=== PATIENT | female | born 1970 | race Caucasian/White ===

== ENCOUNTER → 2018-06-13 17:42 | Outpatient (CLI) | payer OTHER, SELFPAY | PROVIDERS: Family Provider Family Medicine; PCP Family Medicine; Referring Provider Physician Assistant; Visit Provider Physician Assistant | DX: J02.9 Acute pharyngitis, unspecified (principal) | CPT/HCPCS: 87081 ==

== ENCOUNTER → 2018-08-17 08:50 | Outpatient (CLI) | payer OTHER, SELFPAY ==
[2018-06-13 07:33] VITALS: BMI 28.1
[2018-08-17 10:23] LABS: Absolute Lymphocyte Count 2.76 X10^3/ul (0.83-4.51); Absolute Neutrophil Count 3.8 X10^3/uL (2.0-7.7); Basophil# 0.04 X10^3/uL; Basophil% 0.5 % (0-1); Eosinophil# 0.19 X10^3/uL; Eosinophils% 2.6 % (0-5); Hematocrit 41.8 % (37-47); Hemoglobin 13.8 g/dl (12.0-15.0); Lymphocyte # 2.76 X10^3/ul (4.0); Lymphocyte % 37.3 % (19-41); Mean Corpuscular Hgb 33.3 pg (27.0-32.0); Mean Platelet Vol. 10.4 fl (6.2-12.0); Monocyte# 0.55 X10^3/uL; Monocyte% 7.4 % (0-10); Neutrophil # 3.84 X10^3/uL (2.7-7.7); Neutrophil % 51.9 % (47-70); Platelet Count 295 K/mm3 (150-450); RBC Distribution Width CV 12.4 % (11.6-14.6); RBC Distribution Width SD 44.9 fl (35.1-43.9); Red Blood Count 4.14 M/mm3 (4.2-5.4); White Blood Count 7.4 K/mm3 (4.4-11.0)
[2018-08-17 10:31] LABS: POSITIVE COUNT NO; POSITIVE DIFFERENTIAL NO; POSITIVE MORPHOLOGY NO
[2018-08-17 10:43] LABS: ALB/GLOB Ratio 1.2 RATIO (0.9-2.4); AST(SGOT) 19 U/L (15-37); Alanine Aminotransfer ALT/SGPT 41 U/L (13-56); Albumin, Serum 3.8 g/dL (3.2-5.0); Alkaline Phosphatase 65 U/L (45-117); Anion Gap 9 (5-15); BUN 18 mg/dL (7-18); BUN/Creat Ratio 26.5 RATIO (10-20); Chloride 103 mmol/L (98-107); Cholesterol 186 mg/dL (200); Creatinine, Serum 0.68 mg/dL (0.55-1.02); EST Glomerular Filtration Rate 98 mL/min (>60); Est Glom Filt Rate - Afr Amer 119 mL/min (>60); Globulin 3.2 g/dL (2.2-4.2); Glucose 102 mg/dL (74-106); High Density Lipoprotein 53 mg/dL; Potassium 3.4 mmol/L (3.5-5.1); Sodium Level 141 mmol/L (136-145); Thyroid Stim Hormone (TSH) 0.96 uIU/mL (0.358-3.74); Triglycerides 151 mg/dL; Very Low Density Lipoprotein 30 mg/dL (5-40)
== END ==
PROVIDERS: Family Provider Family Medicine; PCP Family Medicine; Visit Provider Family Medicine
DX: Z00.00 Encounter for general adult medical examination without abnormal findings (principal)
CPT/HCPCS: 36415; 80053; 80061; 84443; 85025

== ENCOUNTER → 2018-09-13 07:10 | Outpatient (CLI) | payer OTHER, SELFPAY ==
--- NOTE | 2018-09-13 07:16 | BI_ITS ---
MAMMOGRAPHY - BILATERAL SCREENING REASON FOR EXAM: Female, 48 years old. Routine annual screening examination. PERTINENT HISTORY: Aunt with breast cancer. TECHNIQUE: Digital bilateral breast augustina (3D mammographic acquisition) in the CC and MLO projections. 2-D mediolateral oblique (MLO) and craniocaudad (CC) views of both breasts were obtained. CAD: Full Field Digital Mammography with Computer Added Detection was performed. COMPARISON: Comparison is made with prior study dated June 29, 2016 and June 11, 2015. FINDINGS: Breast Composition: There are scattered areas of fibroglandular density. There are no dominant masses or suspicious calcifications. Stable small bilateral benign-appearing axillary lymph nodes. No other significant abnormalities are identified. There has been no significant change since the prior study. BI/SCREENING MAMM (CAD), BILAT IMPRESSION: Stable bilateral screening mammogram. Yearly follow-up mammogram recommended. (A) ASSESSMENT CATEGORY: BIRADS Category 2: Benign. A letter regarding these results will be sent to the patient by the facility within 30 days. Approximately 10% of breast cancers are not detected by mammography. A normal mammogram should not delay biopsy of a clinically suspicious abnormality. [id number] Electronically Signed: Guicho Oglesby MD at 8:33 EST , Service support ,
== END ==
PROVIDERS: Family Provider Family Medicine; PCP Family Medicine; Referring Provider Obstetrics & Gynecology; Visit Provider Obstetrics & Gynecology
DX: Z12.31 Encounter for screening mammogram for malignant neoplasm of breast (principal)
CPT/HCPCS: 77063; 77067

== ENCOUNTER → 2019-02-28 09:11 | Outpatient (CLI) | payer OTHER, SELFPAY ==
--- NOTE | 2019-02-28 09:12 | US_ITS ---
STUDY: ABDOMINAL ULTRASOUND - RIGHT UPPER QUADRANT REASON FOR VISIT: Female, 48 years old. Right upper quadrant pain TECHNIQUE: Ultrasound evaluation of the right upper quadrant was performed with real-time and static garza-scale imaging. TECHNICAL QUALITY: Adequate. COMPARISON: None. FINDINGS: Liver: The liver measures 16.08 cm. There is increased echogenicity consistent with fatty infiltration. The bile ducts are within normal limits. There is hepatic color flow. The direction of portal flow is hepatopetal. There is no demonstrated mass lesion. Gallbladder: Normal distended gallbladder. The gallbladder wall measures 2.0 mm. There is a negative sonographic Sales's sign. There is no pericholecystic fluid. There are no gallstones. Common Bile Duct (C.B.D.): The common bile duct measures 2.9 mm. Pancreas: Normal size of the head, body and tail of the pancreas. There is normal echogenicity of the pancreas. There is no demonstrated pancreatic mass or cyst. Right Kidney: Normal size of the right kidney. The right kidney measures 9.6 x 5.3 x 4.8 cm. Normal renal cortex. The right cortex measures 1.2 cm. There is no demonstrated renal mass or cyst. There is no right hydronephrosis. US/Gallbladder IMPRESSION: Fatty infiltration of liver, no discrete lesion Electronically Signed: Berhane Cody MD at 10:04 EDT , Service support ,
== END ==
PROVIDERS: Family Provider Family Medicine; PCP Family Medicine; Referring Provider Family Medicine; Visit Provider Family Medicine
DX: R10.11 Right upper quadrant pain (principal)
CPT/HCPCS: 76705

== ENCOUNTER → 2019-03-06 12:48 | Outpatient (CLI) | payer OTHER, SELFPAY ==
--- NOTE | 2019-03-06 12:51 | NM_ITS ---
CLINICAL: 48-year-old female with reported history of abdominal pain. RADIONUCLIDE HEPATOBILIARY SCINTIGRAPHY COMPARISON: Abdominal ultrasound report 02/28/2019 CCK hepatobiliary scintigraphy report 12/16/2013 FINDINGS: Following the intravenous administration of 4.4 mCi of 99m Tc Mebrofenin, hepatobiliary images reveal: 1. Relatively prompt and homogeneous radiopharmaceutical concentration is noted by a normal sized liver. No parenchymal defects are identified. 2. Gallbladder activity is identified at 15 minutes post radiopharmaceutical administration. 3. Small intestinal tract is observed at 15 minutes following tracer injection. 4. Washout of the radiopharmaceutical by the hepatic parenchyma appears qualitatively normal. Cholecystokinin (0.02 ug/kg) was administered intravenously over a 30-minute period. The post CCK gallbladder ejection fraction calculated at 30 minutes following Cholecystokinin administration was noted to be 85.0 % (normal greater than 35%). During 30 minutes of post CCK imaging, there is no scintigraphic evidence of reflux of the radiotracer into the common hepatic duct or refilling of the gallbladder. NM/Hepatobilliary Img w/Pharm Int IMPRESSION: 1. NORMAL 99m Tc Mebrofenin hepatobiliary imaging examination with Cholecystokinin. A. A gallbladder ejection fraction calculated to be greater than 35% following the administration of Cholecystokinin makes the probability of functional hepatobiliary disease (gallbladder and/or sphincter of Oddi dyskinesia) and/or organic hepatobiliary disease (chronic acalculous cholecystitis and/or cystic duct syndrome) to be low. (Tra Reagan et al, Journal of Nuclear Medicine 32:1695, 1991). Electronically Signed: Chavez Oliveira DO at 11:04 EDT Tel , Service support ,
== END ==
PROVIDERS: Family Provider Family Medicine; PCP Family Medicine; Referring Provider Family Medicine; Visit Provider Family Medicine
DX: R10.11 Right upper quadrant pain (principal)
CPT/HCPCS: 78227; A9537; J2805

== ENCOUNTER → 2019-03-19 16:06 | Outpatient (CLI) | payer OTHER, SELFPAY ==
[2019-03-19 17:13] LABS: Absolute Lymphocyte Count 2.91 X10^3/uL (0.83-4.51); Absolute Neutrophil Count 4.7 X10^3/uL (2.0-7.7); Basophil# 0.04 X10^3/uL; Basophil% 0.5 % (0-1); Eosinophil# 0.22 X10^3/uL; Eosinophils% 2.6 % (0-5); Hematocrit 43.9 % (37-47); Hemoglobin 14.8 g/dL (12.0-15.0); Lymphocyte # 2.91 X10^3/ul (4.0); Lymphocyte % 34.4 % (19-41); Mean Corp Hgb Conc 33.7 g/dL (32-36); Mean Corpuscular Hgb 33.9 pg (27.0-32.0); Mean Corpuscular Volume 100.7 fL (81-99); Mean Platelet Vol. 11.2 fl (6.2-12.0); Monocyte% 7.1 % (0-10); NRBC Flagged by Analyzer 0 % (0-5); Neutrophil # 4.65 X10^3/uL (2.7-7.7); Neutrophil % 54.9 % (47-70); Platelet Count 263 K/mm3 (150-450); RBC Distribution Width CV 12.5 % (11.6-14.6); RBC Distribution Width SD 46.7 fl (35.1-43.9); Red Blood Count 4.36 M/mm3 (4.2-5.4); White Blood Count 8.5 K/mm3 (4.4-11.0)
[2019-03-19 17:34] LABS: Thyroid Stim Hormone (TSH) 1.39 uIU/mL (0.358-3.74)
== END ==
PROVIDERS: PCP Family Medicine; Visit Provider Obstetrics & Gynecology
DX: N95.2 Postmenopausal atrophic vaginitis (principal)
CPT/HCPCS: 36415; 84443; 85025

== ENCOUNTER → 2019-12-04 15:28 | Outpatient (CLI) | payer OTHER, SELFPAY ==
[2019-08-15 07:43] VITALS: BMI 28.1
--- NOTE | 2019-12-04 15:31 | RAD_ITS ---
STUDY: X-RAY - LEFT SHOULDER REASON FOR EXAM: Female, 49 years old. Pain TECHNIQUE: 4 view(s) of the shoulder. COMPARISON: None. FINDINGS: Normal glenohumeral articulation. Normal acromioclavicular joint. Normal acromion. Normal humeral head and visualized proximal humerus. The soft tissue structures are unremarkable. There is no demonstrated fracture. Normal visualized pulmonary apex. RAD/Shoulder min 2 Views IMPRESSION: Normal x-ray examination of the shoulder. Electronically Signed: Thierry Enciso MD at 16:07 EDT , Service support ,
--- NOTE | 2019-12-04 15:32 | RAD_ITS ---
STUDY: X-RAY - LEFT FOOT CLINICAL: Female, 49 years old. Pain in the toes, no injury TECHNIQUE: 3 view(s) of the foot. COMPARISON: None. FINDINGS: Normal talus, calcaneus, and tarsal bones. Normal visualized subtalar, talonavicular, calcaneocuboid, tarsal and tarsometatarsal articulations. Normal metatarsi. Normal metatarsophalangeal joint of the great toe. Normal tibial and fibular sesamoid bones. Normal interphalangeal joint of the great toe. Normal phalanges of the great toe. Normal second through fifth metatarsophalangeal joints. Normal interphalangeal joints and phalanges of the lesser toes. The soft tissue structures are unremarkable. RAD/Foot min 3 Views IMPRESSION: Normal x-ray examination of the foot. Electronically Signed: Guicho Oglesby, at 16:17 EDT , Service support ,
--- NOTE | 2019-12-04 15:32 | RAD_ITS ---
STUDY: X-RAY - LEFT HAND REASON FOR EXAM: Female, 49 years old. Pain in the fingers, no injury TECHNIQUE: 3 view(s) of the hand. COMPARISON: None. FINDINGS: Normal radiocarpal articulation. Normal distal radioulnar joint. Normal visualized carpal bones. Normal carpal articulations Normal carpometacarpal articulation of the thumb. Normal second through fifth carpometacarpal joints. Normal metacarpi. Normal metacarpophalangeal joint of the thumb. Normal interphalangeal joint of the thumb. Normal proximal and distal phalanges of the thumb. Normal metacarpophalangeal joints of the second through fifth fingers. Normal proximal and distal interphalangeal joints of the second through fifth fingers. Normal phalanges of the second through fifth fingers. The soft tissue structures are unremarkable. RAD/Hand Min 3 Views IMPRESSION: Normal x-ray examination of the hand. Electronically Signed: Guicho Oglesby, at 16:17 EDT , Service support ,
== END ==
PROVIDERS: PCP Family Medicine; Referring Provider Internal Medicine; Visit Provider Internal Medicine
DX: M25.512 Pain in left shoulder (principal); M25.579 Pain in unspecified ankle and joints of unspecified foot; M25.549 Pain in joints of unspecified hand
CPT/HCPCS: 73030; 73130; 73630

== ENCOUNTER → 2020-08-28 07:01 | Outpatient (CLI) | payer OTHER, SELFPAY ==
[2019-08-15 07:43] VITALS: BMI 28.1
--- NOTE | 2020-08-28 07:03 | BI_ITS ---
MAMMOGRAPHY - BILATERAL SCREENING REASON FOR EXAM: Female, 50 years old. Routine annual screening examination. PERTINENT HISTORY: Aunt with breast cancer. TECHNIQUE: Digital bilateral breast kelli (3D mammographic acquisition) in the CC and MLO projections. 2-D mediolateral oblique (MLO) and craniocaudad (CC) views of both breasts were obtained. CAD: Full Field Digital Mammography with Computer Added Detection was performed. COMPARISON: Comparison is made with prior study date 09/13/2018 and 06/29/2016. FINDINGS: Breast Composition: There are scattered areas of fibroglandular density. There are no dominant masses or suspicious calcifications. No other significant abnormalities are identified. There has been no significant change since the prior study. BI/SCRN MAMM (CAD)W/KELLI BILAT IMPRESSION: Stable bilateral screening mammogram. Yearly follow-up mammogram recommended. (A) ASSESSMENT CATEGORY: BIRADS Category 1: Negative. A letter regarding these results will be sent to the patient by the facility within 30 days. Approximately 10% of breast cancers are not detected by mammography. A normal mammogram should not delay biopsy of a clinically suspicious abnormality. [id number] Electronically Signed: Guicho Oglesby MD at 8:57 EST , Service support ,
== END ==
PROVIDERS: PCP Family Medicine; Referring Provider Obstetrics & Gynecology; Visit Provider Obstetrics & Gynecology
DX: Z12.31 Encounter for screening mammogram for malignant neoplasm of breast (principal); Z80.3 Family history of malignant neoplasm of breast
CPT/HCPCS: 77063; 77067

== ENCOUNTER → 2021-03-24 10:20 | Outpatient (CLI) | payer OTHER, SELFPAY ==
[2021-03-28 16:26] LABS: HPV APTIMA, High Risk Negative (Negative)
== END ==
PROVIDERS: PCP Internal Medicine; Referring Provider Nurse Practitioner Women's Health; Visit Provider Nurse Practitioner Women's Health
DX: Z12.4 Encounter for screening for malignant neoplasm of cervix (principal)
CPT/HCPCS: 87624; 88175; G0145

== ENCOUNTER → 2022-01-26 | Outpatient (CLI) | payer SELFPAY ==
--- NOTE | 2022-01-26 | EMB_PTH ---
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 Neeta Smart DO Tissues: Endometrium, NOS Procedures: Surgery Specimen Level IV HEADER OPERATION: Endometrial biopsy PRE-OP DIAGNOSIS: Abnormal uterine bleeding TISSUE SUBMITTED: Endometrial biopsy MICROSCOPIC DIAGNOSIS Endometrium, biopsy: Disordered proliferative endometrium to simple hyperplasia without atypia. AM:anna marie 01/27/2022 MICROSCOPIC DESCRIPTION Slides are reviewed. GROSS DESCRIPTION Received is one container labeled with the patient's name and not further designated. The specimen consists of multiple fragments of hemorrhagic soft tissue that in aggregate measure 5 x 2.5 x 0.2 cm. The specimen is totally submitted in two cassettes. / SJ:anna marie 01/26/2022 TC:5 CPT: 91120
== END | disposition home or self-care (01) ==
PROVIDERS: PCP Internal Medicine; Visit Provider Nurse Practitioner Women's Health
DX: N93.9 Abnormal uterine and vaginal bleeding, unspecified (principal); N85.01 Benign endometrial hyperplasia
CPT/HCPCS: 88305

== ENCOUNTER → 2022-02-08 | Outpatient (CLI) | payer OTHER, SELFPAY ==
--- NOTE | 2022-02-08 15:13 | US_ITS ---
STUDY: ULTRASOUND OF THE FEMALE PELVIS - COMPLETE REASON FOR EXAM: Female, 51 years old. menorrhagia TECHNIQUE: Endovaginal. Transvaginal US was obtained to better visualized the ovaries. COMPARISON: CT 03/22/2013 FINDINGS: The uterus is retroverted and is in a midline position. The uterus measures 16.5 x 12.1 cm. There is appearance of a mass of the cervix which is hypervascular. The endometrium measures 30 mm in thickness, and is hyperechoic. There is no demonstrated endometrial mass. Fibroids. These measure 34 mm. I.U.D. - The patient does not have an I.U.D. The right ovary is visualized. The right ovary measures 2.5 x 1.8 cm. There is no right ovarian cyst or ovarian mass. There is no visualized right adnexal mass or complex lesion. There is normal arterial and normal venous vascularity. The left ovary is visualized. The left ovary measures 3.2 x 2.1 cm. There is no left ovarian cyst or ovarian mass. There is no visualized left adnexal mass or complex lesion. There is normal arterial and normal venous vascularity. There is no fluid in the cul-de-sac. Urinary bladder volume is 364 cc. US/Pelvic (Non ) IMPRESSION: There is endometrial thickening. This is abnormal for the patient''s age if she is postmenopausal. Direct visualization is recommended to exclude an underlying mass. Diffusely enlarged uterus consistent for fibroid uterus. There is a mass at the level of the cervix which may be a fibroid. However cervical neoplasm cannot be excluded. Recommend Direct visualization Electronically Signed: Turner Villanueva MD at 19:39 EDT ,
--- NOTE | 2022-02-08 15:13 | US_ITS ---
STUDY: ULTRASOUND OF THE FEMALE PELVIS - COMPLETE REASON FOR EXAM: Female, 51 years old. menorrhagia TECHNIQUE: Endovaginal. Transvaginal US was obtained to better visualized the ovaries. COMPARISON: CT 03/22/2013 FINDINGS: The uterus is retroverted and is in a midline position. The uterus measures 16.5 x 12.1 cm. There is appearance of a mass of the cervix which is hypervascular. The endometrium measures 30 mm in thickness, and is hyperechoic. There is no demonstrated endometrial mass. Fibroids. These measure 34 mm. I.U.D. - The patient does not have an I.U.D. The right ovary is visualized. The right ovary measures 2.5 x 1.8 cm. There is no right ovarian cyst or ovarian mass. There is no visualized right adnexal mass or complex lesion. There is normal arterial and normal venous vascularity. The left ovary is visualized. The left ovary measures 3.2 x 2.1 cm. There is no left ovarian cyst or ovarian mass. There is no visualized left adnexal mass or complex lesion. There is normal arterial and normal venous vascularity. There is no fluid in the cul-de-sac. Urinary bladder volume is 364 cc. US/Transvaginal Non- IMPRESSION: There is endometrial thickening. This is abnormal for the patient''s age if she is postmenopausal. Direct visualization is recommended to exclude an underlying mass. Diffusely enlarged uterus consistent for fibroid uterus. There is a mass at the level of the cervix which may be a fibroid. However cervical neoplasm cannot be excluded. Recommend Direct visualization Electronically Signed: Turner Villanueva MD at 19:39 EDT ,
== END | disposition home or self-care (01) ==
LOC: US 15:12
PROVIDERS: PCP Internal Medicine; Referring Provider Nurse Practitioner Women's Health; Visit Provider Nurse Practitioner Women's Health
DX: N92.1 Excessive and frequent menstruation with irregular cycle (principal); D25.9 Leiomyoma of uterus, unspecified
CPT/HCPCS: 76830; 76856

== ENCOUNTER → 2022-02-15 | Outpatient (CLI) | payer OTHER, SELFPAY ==
[2022-03-02 20:26] LABS: HPV Reflexed? NOT INDICATED
== END | disposition home or self-care (01) ==
LOC: LABSPEC 15:39
PROVIDERS: PCP Internal Medicine; Visit Provider Nurse Practitioner Women's Health
DX: R87.615 Unsatisfactory cytologic smear of cervix (principal)
CPT/HCPCS: 88175; G0145

== ENCOUNTER → 2022-02-21 | Outpatient (CLI) | payer OTHER, SELFPAY ==
--- NOTE | 2022-02-21 16:45 | MRI_ITS ---
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 This report was created using [employer] report generation technology. CONTRAST: IV 14 CC DOTAREM COMPARISON: CT 03/22/2013 and US Feb 08 2022 3:44pm FINDINGS: APPENDIX: No evidence of acute appendicitis. INTRAPERITONEAL SPACE: Unremarkable. No ascites or other fluid collection. BLADDER: Unremarkable. REPRODUCTIVE: Enlarged uterus with a fibroid. The mass noted on US correlates with a posterior uterine fibroid. There is endometrial thickening and abnormal MRI signal in the endometrium. Multiple cystic areas in the endometrial junctional zone can represent microcysts. There is diffuse distribution. This can represent adenomyosis. There is a low T2 signal mass along the posterior lower uterine segment. This is 61 x 56 mm. 27mm low T2 signal fibroid in the anterior uterine body. BONES/JOINTS: Unremarkable. No suspicious lytic or blastic abnormality. SOFT TISSUES: Unremarkable. No pelvic wall hernia. LYMPH NODES: Unremarkable. No enlarged lymph nodes. MRI/Pelvis W/WO Contrast IMPRESSION: 1. Enlarged uterus with fibroids. The mass noted on US correlates with a posterior uterine fibroid. 2. There is endometrial thickening. Multiple cystic areas in the endometrial junctional zone can represent microcysts. There is diffuse distribution. This can represent adenomyosis. Electronically Signed: Turner Villanueva MD at 20:41 EDT ,
== END | disposition home or self-care (01) ==
PROVIDERS: PCP Internal Medicine; Referring Provider Obstetrics & Gynecology; Visit Provider Obstetrics & Gynecology
DX: N88.8 Other specified noninflammatory disorders of cervix uteri (principal)
CPT/HCPCS: 72197; A9575

== ENCOUNTER 2022-02-24 07:07 | Observation (INO) | payer OTHER, SELFPAY ==
[2022-02-24 07:08] VITALS: BP 137/92; PULSE 96; RESP 20; TEMP 36.8; O2SAT 99; BMI 27.4
[2022-02-24] MEDS: Ketorolac 15 MG/ML Vial IV (07:32)
[2022-02-24] MEDS: Morphine 4 MG/ML Syringe IV ×3 (07:33→12:21)
[2022-02-24] MEDS: Ondansetron 4 MG/2 ML Vial IV (07:33)
[2022-02-24 07:36] LABS: Absolute Lymphocyte Count 1.21 X10^3/uL (0.83-4.51); Absolute Neutrophil Count 15.7 X10^3/uL (2.0-7.7); Basophil# 0.05 X10^3/uL; Basophil% 0.3 % (0-1); Eosinophil# 0.03 X10^3/uL; Eosinophils% 0.2 % (0-5); Hematocrit 43.4 % (37-47); Hemoglobin 14.7 g/dL (12.0-15.0); Lymphocyte # 1.21 X10^3/ul (0.83-4.51); Lymphocyte % 6.7 % (19-41); Mean Corp Hgb Conc 33.9 g/dL (32-36); Mean Corpuscular Hgb 34.5 pg (27.0-32.0); Mean Corpuscular Volume 101.9 fL (81-99); Monocyte% 6.1 % (0-10); NRBC Flagged by Analyzer 0 % (0-5); Neutrophil # 15.68 X10^3/uL (2.7-7.7); Neutrophil % 86.3 % (47-70); Platelet Count 161 K/mm3 (150-450); RBC Distribution Width CV 13.2 % (11.6-14.6); RBC Distribution Width SD 49.9 fl (35.1-43.9); Red Blood Count 4.26 M/mm3 (4.2-5.4); White Blood Count 18.1 K/mm3 (4.4-11.0)
--- NOTE | 2022-02-24 07:36 | ED.VIS.FEGU ---
HPI HPI - Female History of Present Illness Chief Complaint: Vag Bleeding Detail of Chief Complaint: Vaginal bleeding for approximately 4 months Informant: patient, spouse/S.O. and other (Review of prior records and images) Pain Pain: Positive for Pelvic Pain Onset: Days Context: Gradual Onset (Pain has gotten significantly worse since Monday.) Timing: Continuous and Waxes and wanes Quality: Positive for Cramping (Compares to significant labor pain) Location: Suprapubic and Back Current Severity: Severe Maximum Severity: Severe Worsened by: - (Nothing specific) Relieved by: Remaining Still (Nothing) Bleeding Issue: Positive for Vaginal bleeding and Passing clots; Negative for Passing tissue Onset: Days and Weeks Context: Sudden Onset Timing: Continuous and Waxes and wanes Current Severity: Heavy Current pads/hr: 13 Maximum Severity: Heavy Associated Symptoms Associated Symptoms: Positive for Irregular Period; Negative for Dysuria, Frequency, Urgency, Hematuria or Missed Period Test: Negative Sexually: Positive for Active Narrative Narrative: Patient is a 53-year-old woman who is under the care of Dr. Bates who presents because of severe pain. She had an appointment to see Dr. Brenda Bates this morning however states the pain was unbearable. She states she is gone through 13 pads with passage of clots. She denies orthostatic symptoms. She denies urologic symptoms. She has not on anticoagulant. She informed that she had ultrasound which revealed a mass. She was informed that the MRI revealed that the mass is a fibroid. She denies bruising easily. She denies any other symptoms. Prior similar symptoms: Yes Recent Illness/Hospitalization: Yes PFSH PFSH Home Medications multivitamin 1 tab PO DAILY 03/24/21 [History Last Taken Unknown] psyllium husk 0.4 gram capsule (Daily Fiber) 0.4 g PO DAILY 03/24/21 [History Last Taken Unknown] megestrol 40 mg tablet 40 mg PO BID #60 tabs 01/27/22 [Rx Last Taken Unknown] Allergy/AdvReac Type Severity Reaction Status Date / Time No Known Allergies Allergy Verified 02/24/22 07:10 Surgical History Hx of tubal ligation Social History household members: spouse current occupational status: employed current occupation: [employer] history of recent travel: No Smoking Status: Never smoker alcohol intake: current alcohol intake frequency: a few times a week Alcohol type: wine substance use type: does not use diet: other what type of physical activity do you participate in: yoga frequency: 1-2 times per week seatbelt use: always do you feel safe at home: Yes additional social history: - [facility] ROS ED Constitutional Constitutional ED: Denies chills, fever(s), subjective or sweats Eyes Eyes: Denies blurry vision, change in vision or diplopia ENT ENT ED: Denies ear pain, rhinorrhea or sore throat Cardiovascular Cardiovascular: Denies chest pain or palpitations Respiratory/Chest Respiratory/Chest: Denies cough, dyspnea or dyspnea on exertion Gastrointestinal Gastrointestinal: Reports abdominal pain; Denies constipation, diarrhea, melena, nausea or vomiting Genitourinary Genitourinary ED: Denies dysuria, hematuria or urinary frequency Musculoskeletal Musculoskeletal: Reports other Details: Central low back pain ; Denies arthralgias, myalgias or neck pain Integumentary Denies abscess, Abrasions or rash Neurologic Neurologic: Denies headache(s), paresthesias or weakness Hematologic/Lymphatic Hematologic/Lymphatic: Denies easy bleeding, easy bruising or lymphadenopathy EXAM Physical Exam Const Vital Signs: 02/24/22 07:08 Temperature 98.2 F Temperature Source Temporal Pulse Rate 96 Respiratory Rate 20 H Blood Pressure 137/92 H Blood Pressure Mean 107 Pulse Ox 99 Oxygen Delivery Method Room Air Positive well nourished and well developed Constitutional Narrative: Patient is in obvious discomfort dressed. Patient is grimacing. Hips are flexed and patient slightly rotated on her right side. General Appearance ED: well developed; Negative for NAD or pallor HEENT Reports moist mucous membranes HEENT Narrative: Ears normal. Nares patent. Mucosa moist. Eyes PERRL and EOMs intact bilaterally General Eye ED: Yes pale conjunctiva and scleral icterus Neck no lymphadenopathy, supple and no JVD Resp normal respiratory effort and clear to auscultation bilaterally Cardio regular rate, regular rhythm, S1 normal heart sound, no murmurs and no JVD GI soft to palpation and non-distended; Negative for normal to inspection, nondistended, normoactive bowel sounds or non-tender Auscultation: hypoactive bowel sounds Palpation: tender suprapubic and guarding other (Suprapubic/pelvic region) Back/Spine no CVA tenderness Thoracic Spine / Upper Back: thoracic spinal tenderness Lumbar Spine / Lower Back: lumbar spinal tenderness Extremity normal to inspection and full ROM Neuro oriented x3, CN's II-XII intact bilaterally and no sensory deficits noted Sensorium / Orientation: alert Motor Exam: strength 5/5 throughout Psych Psych Narrative: Patient appears anxious. Affect is flat. Skin no rashes or lesions noted and no wounds General Skin Exam: Negative for jaundice or pallor MDM MDM MDM Narrative Medical decision making narrative: Patient with abnormal vaginal bleeding suspect secondary to fibroids. CBC was obtained to assess H&H and platelet count. Patient was medicated with IV morphine and Toradol and Zofran for pain and nausea. Will contact Dr. Brenda Bates regarding patient. Patient was reassessed at 0744. Pain has improved. Patient required more pain medicine. She was given additional dose of morphine. Case was discussed with Dr. Anila Kirby. Plan is observation for pain management. She will consult Dr. Brenda Bates after reviewing ultrasound and MRI to determine if patient requires surgery. Lab Data Attestation: I reviewed the patient's lab results. Lab results narrative: White count is elevated with evidence of demargination consistent with stress/pain. H&H is unchanged. MCV is elevated and is baseline for patient Labs: Laboratory Results - last 24 hr 02/24/22 07:24 WBC 18.1 H RBC 4.26 Hgb 14.7 Hct 43.4 MCV 101.9 H MCH 34.5 H MCHC 33.9 RDW Std Deviation 49.9 H RDW Coeff of Cecilia 13.2 Plt Count 161 MPV 10.0 Immature Gran % (Auto) 0.400 Neut % (Auto) 86.3 H Lymph % (Auto) 6.[address] % (Auto) 6.1 Eos % (Auto) 0.2 Baso % (Auto) 0.3 Absolute Neuts (auto) 15.7 H Absolute Lymphs (auto) 1.21 Nucleated RBC % 0 Discharge Plan Triage Chief Complaint: Vag Bleeding ED Provider: Juan AlbertoFortino Dx/Rx/DC Orders Clinical Impression: Pelvic pain, Intramural uterine fibroid, Leukocytosis Prescriptions: No Action multivitamin Tablet 1 tab PO DAILY psyllium husk [Daily Fiber] 0.4 gram capsule 0.4 g PO DAILY megestrol 40 mg tablet 40 mg PO BID Qty: 60 6RF Primary Care Provider: Neeta Smart Referrals: Neeta Smart DO [Primary Care Provider] - Disposition Disposition: Acute Care Hospital [facility]
[2022-02-24] MEDS: 0.9% Normal Saline 1,000 ML 150 ML IV (07:50)
[2022-02-24 10:20] VITALS: BP 141/82; PULSE 67; RESP 11; TEMP 36.6; O2SAT 97
[2022-02-24 10:38] VITALS: BMI 27.8
[2022-02-24 10:57] VITALS: BMI 27.8
[2022-02-24 12:00] VITALS: BP 151/90; PULSE 71; RESP 14; TEMP 37.2; O2SAT 100
[2022-02-24] MEDS: 0.9% Normal Saline 1,000 ML 75 ML IV (12:21)
[2022-02-24] MEDS: 0.9% Saline Lock 10 ML Syringe IV (12:21)
--- NOTE | 2022-02-24 13:13 | PCM.HP.OB ---
HPI - General General Date of Admission: 02/24/22 Date of Service: 02/24/22 Chief Complaint: pelvic pain, fibroid uterus HPI Narrative NOVEMBER GALAVIZ, is a 51y/o (vaginal deliveries) who presents to [facility] ER earlier this am with pain that started on Monday this week. She is taking progesterone to stop her menses but experienced breakthrough bleeding on Monday, followed by pain on Monday. While in the ER, she told the physician that she had gone through 13 pads over the last 24 hours. Her hg did not reflect severe anemia and she denies dizziness, shortness of breath, or chest pain. She had a WBC of 18 however. She denies fevers or chills, cold symptoms or covid symptoms. MRI from earlier this week showed a 16 cm uterus with a 6 cm posterior lower segment fibroid. She is currently is moderate pain (level 6/10). [facility] Home Medications multivitamin 1 tab PO DAILY SUPPLEMENT 03/24/21 [History Last Taken 02/23/22 08:00] megestrol 40 mg tablet 40 mg PO BID #60 tabs 01/27/22 [Rx Last Taken Unknown] oxycodone-acetaminophen 5 mg-325 mg tablet (Percocet) 1 - 2 tab PO Q4H PRN Pain 02/24/22 [History Last Taken Unknown] Allergy/AdvReac Type Severity Reaction Status Date / Time No Known Allergies Allergy Verified 02/24/22 07:10 Surgical History Hx of tubal ligation Social History household members: spouse current occupational status: employed current occupation: [employer] history of recent travel: No Smoking Status: Never smoker alcohol intake: current alcohol intake frequency: a few times a week Alcohol type: wine substance use type: does not use diet: other what type of physical activity do you participate in: yoga frequency: 1-2 times per week seatbelt use: always do you feel safe at home: Yes additional social history: - Vasquez History 3 Elective abortions Hx Para 3 Spontaneous abortions Hx # Term Pregnancies Ectopic pregnancies Hx # Pregnancies Multiple births # of living children 3 Past Pregnancies Del. Date Name GA/Weeks Outcome Route Bth Weight Gen Labor Lgth Anesthesia Del [facility] Provider FOB Unknown Misael 1989 Unknown Mala 1989 Unknown Reyna 1994 ROS Constitutional Constitutional: Denies change in weight, fatigue, fever(s), headache(s), poor appetite or weakness Eyes Eyes: Denies blurry vision, change in vision, seeing flashes or spots in vision ENT HEENT: Denies dizziness, headache(s), loss taste/smell or sore throat Cardiovascular Cardiovascular: Denies chest pain, dizziness, dyspnea, irregular heart rhythm, leg edema, palpitations, rapid heart rate or vomiting Respiratory/Chest Respiratory/Chest: Denies chest tightness, cough, dyspnea or breast pain Gastrointestinal Gastrointestinal: Denies abdominal pain, anorexia, constipation, cramping, diarrhea, hemorrhoids, vomiting or weight changes Genitourinary Genitourinary: Denies dysuria, flank pain, genital lesions, genital pain, urinary frequency or urinary urgency Musculoskeletal Musculoskeletal: Denies back pain, difficulty walking, joint pain, limited range of motion, muscle cramps or numbness Integumentary Integumentary: Denies lesions or unusual bruising Neurologic Neurologic: Denies abnormal movements, abnormal speech, dizziness, numbness, seizure-like activity or syncope Psychiatric Psychiatric: Denies anxiety, behavioral changes, change in appetite, change in libido, cognitive impairment, confusion, depression, difficulty concentrating, hallucinations or suicidal thoughts Endocrine Endocrinology: Denies excessive sweating, polydipsia or polyuria Hematologic/Lymphatic Hematologic/Lymphatic: Denies easy bleeding, easy bruising or lymphadenopathy Allergic/Immunologic Allergic/Immunologic: Denies itchy eyes, lip swelling, seasonal rhinorrhea, rhinitis, throat swelling, tongue swelling, eczemia, wheezing or asthma Vital Signs Vital Signs Vital Signs: 02/24/22 07:08 02/24/22 10:20 Temperature 98.2 F 98 F Temperature Source Temporal Temporal Pulse Rate 96 67 Respiratory Rate 20 H 11 L Blood Pressure 137/92 H 141/82 H Blood Pressure Mean 107 101 Pulse Ox 99 97 Oxygen Delivery Method Room Air Room Air Weight Weight: 152 lb Body Mass Index (BMI) 27.8 Physical Exam Const alert, oriented x3, no apparent distress and healthy appearing General Appearance: cooperative; Negative for anxious HEENT normocephalic Face and Sinus: normal facial exam Eyes EOMs intact bilaterally and no scleral icterus General Eye: normal appearance of both eyes Neck full ROM and supple Lymph Lymphatic: no lymphadenopathy noted Chest Chest: abnormal inspection of the chest Resp normal respiratory effort Effort and Inspection: able to speak in complete sentences Cardio regular rate GI soft to palpation and non-tender Palpation: soft; Negative for tender Back/Spine no CVA tenderness Extremity normal to inspection, full ROM and no clubbing, cyanosis or edema General Extremity: Negative for calf tenderness or edema Skin Lesions: no lesions Rashes: no rashes Psych mental status grossly normal Labs Labs Labs: Hct 43.4 % (37-47) Hgb 14.7 g/dL (12.0-15.0) Assessment & Plan (1) Pelvic pain: PLAN: After discussing the patient's diagnosis and treatment plan options, patient wishes to proceed with surgical management. The plan is to proceed with total robotic hysterectomy, possible laparotomy, bilateral salpingo-oophorectomy, and cystoscopy I have discussed with the patient the risks, benefits, and alternatives of the procedure which include but are not limited to risks of anesthesia, bleeding, infection, possible damage to bowel, bladder, or surrounding vasculature which could lead to additional surgery to evaluate any complications. Patient agrees to procedure and wishes to proceed. ACOG/uptodate references given for additional information regarding procedure. if surgery goes well and her pain is well controlled, I will discharge her to home after surgery. (2) Intramural uterine fibroid: (3) Leukocytosis: (4) Menorrhagia with irregular cycle: (5) Climacteric: Charges/Coding Multi Select Codes Visit Charges Visit Charges: 15677 Init Hosp L3
[2022-02-24 15:20] VITALS: BP 107/67; PULSE 86; RESP 14; TEMP 37.2; O2SAT 100
--- NOTE | 2022-02-24 15:49 | EKG12_ITS ---
Test Reason : PRE OP Blood Pressure : / mmHG Vent. Rate : 081 BPM Atrial Rate : 081 BPM P-R Int : 154 ms QRS Dur : 074 ms QT Int : 360 ms P-R-T Axes : 064 026 052 degrees QTc Int : 418 ms Normal sinus rhythm Low voltage QRS Borderline ECG No previous ECGs available Confirmed by JEANNETTE MACKAY, ALICE ([id number]), online editor WINIFRED CARDOZO ([id number]) on 03/02/2022 1:07:47 PM Referred By: JESE LOFTON Confirmed By:ALICE MACHADO MD
[2022-02-24 21:20] VITALS: BP 107/71; PULSE 89; RESP 14; TEMP 36.9; O2SAT 99
[2022-02-25] VITALS (15 sets, daily range): BP systolic 93–125; BP diastolic 63–86; PULSE 48–87; RESP 12–18; TEMP 36.4–37.3; O2SAT 92–100; BMI 27.8
[2022-02-25] MEDS: 0.9% Normal Saline 1,000 ML 75 ML IV ×2 (01:28→15:21)
[2022-02-25] MEDS: Gabapentin 600 MG Tablet PO (07:34)
[2022-02-25] MEDS: Acetaminophen 500 MG Tablet 1000 MG PO ×3 (08:59→21:24)
[2022-02-25] MEDS: Celecoxib 200 MG Capsule 400 MG PO (08:59)
[2022-02-25] MEDS: Lactated Ringers 1,000 ML 40 ML IV ×2 (09:11→11:00)
[2022-02-25] MEDS: Magnesium 2 GM IV (09:25)
--- NOTE | 2022-02-25 09:30 | HYST_PTH ---
PATIENT: ANASTACIANOVEMBER WALTER LOC: MS3 U#:[id number] AGE/SX: 51/F [place] [facility] [place]: Dr. Anila Rodriguez DO : 1970 BED: 1 DIS: 02/26/2022 SPEC #: [id number] RECD: 02/25/22 13:49 STATUS: GRAEME HOPPER #: [id number] CURT: 02/25/22 09:[address]: Anila Rodriguez DEPT: SURGICAL PATHOLOGY RECD BY: Yoko Moore ENTERED: 02/28/22 11:44 SP TYPE: HYSTERECT OTHR DR: Dr. Neeta Smart DO Tissues: Uterus, NOS Procedures: Surgery Specimen Level V HEADER OPERATION: Total robotic hysterectomy, BSO, cysto PRE-OP DIAGNOSIS: Pelvic pain, intramural uterine fibroid, leukocytosis, menorrhagia TISSUE SUBMITTED: Uterus, cervix, fibroid, bilateral fallopian tubes and ovaries MICROSCOPIC DIAGNOSIS Uterus, cervix, fibroid, bilateral fallopian tubes and ovaries, total hysterectomy and bilateral salpingo-oophorectomy: Cervix ? chronic inflammation. Endometrium ? secretory endometrium. Myometrium ? leiomyomas (largest measuring 6 cm in greatest dimension). - Diffuse adenomyosis. Bilateral fallopian tubes - no pathologic diagnosis. Right ovary - no pathologic diagnosis. Left ovary ? simple benign epithelial cyst (1.0 cm in greatest dimension). Paraovarian tissue adjacent to the left ovary ? adipose tissue with focal fat necrosis (1 cm in greatest dimension). SJ:anna marie 03/01/2022 COMMENT Please make reference to previous specimen ([id number]), endometrium, biopsy with diagnosis of ?disordered proliferative endometrium to simple hyperplasia without atypia.? MICROSCOPIC DESCRIPTION Slides are reviewed. GROSS DESCRIPTION Received in fixative is one container labeled with the patient's name and designated uterus, cervix, fibroid, bilateral fallopian tubes and ovaries. The specimen consists of a hysterectomy specimen consisting of uterus and cervix in multiple pieces and attached bilateral fallopian tubes and ovaries in the largest piece of uterus. The uterus with cervix in multiple pieces weighs in aggregate 678 gm. The detached cervix measures 4 x 4.5 x 2.5 cm. The ectocervical mucosa is unremarkable. The external os is oval in contour. The endocervical canal measures 3.5 cm in length. The largest piece of uterus measures 15 x 10 x 7 cm. The serosal surface is hobson, glistening. The endometrial cavity in the largest piece of the uterus measures 5 cm in length and up to 3 cm in width. The endometrium is denuded in most of the area and measures up to 0.2 cm in thickness. Sections of the largest piece of uterus reveal thickened uterine wall measuring up to 5 cm in thickness. Sections also reveal a nodular mass measuring 1.5 cm in diameter. Detached pieces of uterus measures in aggregate 10 x 6 x 5 cm. Two of the pieces are consistent with nodular masses measuring 2 and 6 cm in greatest dimension. Sections of these masses reveal hobson whorled cut surfaces without areas of hemorrhage, necrosis or cystic degeneration. The right fallopian tube measures 4 cm in length and 0.6 cm in diameter. The fimbrial end is identified. No tubo-ovarian adhesions are noted. Sections reveal unremarkable cut surfaces. The right ovary measures 2 x 1 x 1 cm. Sections reveal unremarkable cut surfaces. The left fallopian tube measures 7 cm in length and 0.5 cm in diameter. A Filshie clip is noted in the proximal portion of the fallopian tube and appears to be intact. The fimbrial end is identified. Sections reveal unremarkable cut surfaces. No tubo-ovarian adhesions are noted. The left ovary measures 3 x 2 x 1 cm. A yellowish nodule is noted at the surface of the ovary measuring 1 x 0.5 x 0.5 cm. The left ovary is sectioned and reveals a collapsed cyst measuring 1 cm in greatest dimension. Element Setter sections are submitted in 13 cassettes as follows: 1 & 2 - cervix, 3??denuded endometrial tissue, 4 & 5 - anterior uterine wall, 6 & 7 - posterior uterine wall, 8 - intramural mass in the largest piece of uterus, 9 - smaller detached nodular mass, 10 - largest nodular mass, 11??right fallopian tube and ovary, 12 - left fallopian tube and ovary and yellowish nodule on the surface of the ovary, 13 - more sections left ovary. Almost entire left ovary is submitted. / HUMERA:anna marie 02/28/2022 TC:1 CPT: 61292
[2022-02-25 09:35] LABS: Bedside Glucose 98 mg/dL (74-106)
--- NOTE | 2022-02-25 10:09 | DCINST_ITS ---
Discharge Instructions Diet Discharge Diet: No restrictions Activity May resume sexual activity in: 6 weeks Weight Bearing Status: Full weight bearing Dressing / Incision Call your doctor if your incision/area has: Continuous Slow Oozing, Sudden Increased Bleeding, Increased Pain/ Swelling, Increased Redness and Foul Smelling Discharge Call your doctor if you observe: Fever of 101 or Higher, Using more than 1 pad per hour, Shortness of breath, Chest pain and Uncontrolled pain Suture Line Care: Avoid Pulling/Pushing and Avoid Pinching/Bending Remove Dressing in: 1 week (if present) Cleanse incision/area with: Soap & Water and Keep Dressing Clean & Dry Follow Up Care Please Follow Up With: Anila Rodriguez DO When: Call to make an appointment with your doctor for a postop visit in 2 and 6 weeks Test Results: Test results from this visit will be discussed in further detail at your follow- up appointment, if applicable. Discharge Plan Admission Admit Date/Time: 02/24/22 15:59 Primary Reason for Your Visit: hysterectomy Attending Provider: Anila Rodriguez Primary Care Provider: Neeta Smart Discharge Orders/Prescriptions Prescriptions: New ibuprofen 600 mg tablet 600 mg PO Q6H PRN (Reason: pain) 7 Days Qty: 28 0RF Rx Instructions: one tab every 6 hrs as needed for mild to moderate pain oxycodone-acetaminophen [Percocet] 5-325 mg tablet 1 tab PO Q4H PRN (Reason: pain) 7 Days Qty: 30 0RF docusate sodium [Colace] 100 mg capsule 100 mg PO DAILY 14 Days Qty: 14 0RF ondansetron 4 mg tablet,disintegrating 4 mg PO Q8H PRN (Reason: nausea and vomiting) Qty: 30 0RF Continued multivitamin Tablet 1 tab PO DAILY oxycodone-acetaminophen [Percocet] 5-325 mg Tablet 1 - 2 tab PO Q4H PRN (Reason: Pain) Discontinued megestrol 40 mg tablet 40 mg PO BID Qty: 60 6RF Referrals / Follow Up: Neeta Smart DO [Primary Care Provider] - Disposition Disposition (needs filled in before D/C Order can be placed): Home, Self Care
[2022-02-25] MEDS: Cefazolin 2 GM in 0.9% Normal Saline 100 ML IV (10:21)
[2022-02-25] MEDS: Lubricating Jelly 60 GM Tube 30 GM (10:30)
[2022-02-25] MEDS: Vasopressin 20 UNITS/ML Vial (11:00)
[2022-02-25] MEDS: Lactated Ringers @ 70 MLS/HR 70 ML IV (13:00)
[2022-02-25] MEDS: Bupivacaine 0.25% 30 ML Vial (13:00)
[2022-02-25] MEDS: Ondansetron 4 MG/2 ML Vial IV (14:28)
--- NOTE | 2022-02-25 17:01 | OP.PCM_ITS ---
Problems Associated Problem List Diagnoses (1) Pelvic pain: (2) Intramural uterine fibroid: (3) Menorrhagia with irregular cycle: Operative Report Date of Procedure: 02/25/22 Preoperative diagnosis:large fibroid uterus, menorrhagia, pelvic pain Postoperative diagnosis: large fibroid uterus, menorrhagia, pelvic pain Procedure: Total robotic hysterectomy bilateral salpingooophorectomy and cystoscopy Anesthesia: General endotracheal intubation Estimated blood loss: 50cc Urine output:200cc Drains: None Implanted material: None Complications: None Findings: 16 cm size uterus with a 6 cm posterior cul-de-sac fibroid, normal appearing ovaries and tubes. On exploration of the abdominal cavity the adnexa, bowel, and liver were found to be normal. Cystoscopy showed no evidence of leaking at approximately 250 cc of normal saline, positive ureteral orifices and jet flow are seen on the left ureter but not the right, a whistle-tip catheter was inserted to 20 cm into the right ureter and pulled back without evidence of blood. No suture material was appreciated in the bladder. Specimens removed: Uterus and cervix, Bilateral tubes and ovaries Reason for surgery: This is a 51-year-old G2, P2 who presented to the emergency room on 02/24/2022 with a complaint of severe pelvic pain and heavy vaginal bleeding. She was admitted to [facility] for pain management. MRI showed a large posterior cul-de-sac fibroid and an enlarged uterus. Because of her pain and heavy bleeding the decision was made to proceed with hysterectomy. The planned procedure is for a robotic hysterectomy the risks benefits and alternatives were discussed with the patient the patient had a clear understanding of the procedure and a consent form was signed. Procedure: The patient was placed in the dorsal low lithotomy position and prepped and draped in the normal sterile fashion both abdominally and in the perineum. Her legs were placed in stirrups a Biswas catheter was inserted into the urethra without difficulty. A weighted speculum was placed in the vagina and a single- tooth tenaculum was used to grasp the anterior lip of the cervix. A uterine manipulator was inserted through the cervix without complication. It was then tied into place at the 2 and 10:00 locations on the cervix. Gloves were changed and attention was turned towards the abdomen. Approximately 23 cm above the pubic symphysis in the midline, and after Marcaine injection, a 8 mm incision was made. An 8 mm trocar was inserted through the laparoscope, then inserted into the abdomen under direct visualization using the laparoscope. Good abdominal placement was noted and no complications were appreciated. An air seal device was utilized to create pneumoperitoneum. At 12 cm lateral to the midline on the left and right sides 8 mm accessory ports were placed. Next a left upper quadrant 8 mm quality assistant port site was placed. The patient was placed in steep Trendelenburg position. The robot was docked. The hysterectomy was initiated first by injecting the posterior cul-de-sac with 30 cc of dilute vasopressin. Vertical incision was made in the fibroid serosa and the fibroid was shelled out of the posterior lower uterine segment. The hysterectomy was then continued, first by taking down the round ligament on each side using the vessel sealer device. The peritoneum between the round ligament and the IP ligament was opened using electrocautery and extended the length of the IP ligament. The IP ligament was then taken down using the vessel sealer device. These areas were freed without complication the broad ligament was then and taken down using the vessel sealer device. Next the bladder flap was taken down without complication. This was done using monopolar cautery to the level of the cervical vaginal junction. After the bladder flap was created, uterine vessels were then isolated and cauterized using the vessel sealer device and EndoShears. At this point the uterine vessels were taken down further starting from the ascending branch, dissecting along the edges of the cervix to the level of the cervical vaginal junction with hemostasis appreciated. The cervical vaginal junction was then using monopolar cautery in a circumferential pattern across the superior aspect of the cervix. The specimen was delivered through the vagina by bivalving the uterus. The fibroid was then passed down by my quality assistant, down to the vaginal opening and was removed through the vagina and sent to pathology. The uterus fallopian tubes ovaries cervix and fibroid weighed approximately 700 g. The remaining vaginal cuff was then closed using V lock suture after removal of a small portion of the fibroid that was left behind. This was performed in a running technique. Excellent hemostasis was obtained and good closure was noted. Irrigation was then performed. All operative sites were noted to be hemostatic. A cystoscopy was performed with a 70 degree cystoscope through the urethra into the bladder without complication. The bladder was instilled with approximately 250 cc of normal saline. Intraoperative images were made. Ureteral orifices were identified and a jet flow was identified on the left ureter but not the right. Urology was called however neither urologist were in town. Dr. Braden was able to give verbal recommendations to pass a whistle-tip catheter through the ureter. This was performed and inserted to 20 cm. She then instructed the removal of the whistle-tip catheter and recommended that if no further bleeding was noted and peristalsis was noted on laparoscopy (which it was) then no further action was needed. No suture material was appreciated in the bladder. The bladder was then drained and cystoscope was removed. The abdominal cavity was again examined using the laparoscope after the robot was undocked. All operative sites were noted to be hemostatic. The trochars were removed under direct visualization without complication and pneumoperitoneum was reduced. At this point the skin was then closed using 4-0 Monocryl subcuticular stitch and sealed with surgical glue. The patient tolerated the procedure well sponge lap and needle counts were correct x2 the patient was taken to the recovery room in stable condition. Multi Select Codes Urinary/Genital Urinary/Genital CPT Codes: 24467 Cystoscopy (with insertion of whistle-tip c atheter) and 27607 TLH+BS/O >250gr uterus
[2022-02-25] MEDS: Docusate Sodium 100 MG Capsule PO (21:24)
--- NOTE | 2022-02-25 21:45 | CT_ITS ---
EXAM: CT ABDOMEN AND PELVIS WITH INTRAVENOUS CONTRAST CLINICAL INDICATION: kidney stone, checking for Right urethral blockage TECHNIQUE: Helically acquired images were obtained of the abdomen and pelvis with intravenous contrast. This CT exam was performed using one or more of the following dose reduction techniques: automated exposure control, adjustment of the mA and/or kV according to patient size, and/or use of iterative reconstruction technique. This report was created using Write[employer] report generation technology. CONTRAST: IV 100mL [id number] COMPARISON: 03/22/2013 FINDINGS: LOWER THORAX: There are small bilateral effusions with bibasilar atelectasis. No cardiomegaly. ABDOMEN: LIVER: Unremarkable. Homogeneous. No focal mass. GALLBLADDER AND BILE DUCTS: Unremarkable. No calcified gallstones. No gallbladder distention or wall edema. No intra- or extrahepatic biliary ductal dilation. PANCREAS: Unremarkable. No focal cystic or solid mass. SPLEEN: Unremarkable. Normal size without focal cystic or solid mass. ADRENALS: Unremarkable. No nodules. KIDNEYS AND URETERS: There is a low-density lesion in left kidney compatible with a cyst. No follow-up imaging is necessary. No hydronephrosis. STOMACH AND BOWEL: Unremarkable. No stomach or bowel distention. No focal inflammatory change. PELVIS: APPENDIX: No evidence of acute appendicitis. BLADDER: There is a Biswas catheter in the bladder. REPRODUCTIVE: Patient is status post hysterectomy. ABDOMEN and PELVIS: INTRAPERITONEAL SPACE: There is free fluid within the pelvis. No free air. BONES/JOINTS: Unremarkable. No suspicious lytic or blastic abnormality. SOFT TISSUES: There is free air is seen within the upper abdomen. There is gas also seen in the subcutaneous tissues of the lower abdomen perhaps from previous laparoscopic surgery. No discrete abdominal or pelvic wall hernia. VASCULATURE: Unremarkable. Abdominal aorta is non-dilated. LYMPH NODES: Unremarkable. No enlarged lymph nodes. CT/Abdomen/Pelvis W IV Cont ONLY IMPRESSION: 1. Free air seen in the upper abdomen. There is also gas in the subcutaneous tissues likely due to recent surgery. There is free fluid seen within the pelvis. Patient is status post hysterectomy. There is no evidence of ureteral obstruction.There is a Biswas catheter in the bladder. 2. Small bilateral effusions with bibasilar consolidation which may represent atelectasis or pneumonia. Electronically Signed: Randy Dimas MD at 23:01 EDT ,
[2022-02-25] MEDS: HYDROmorphone 0.5 MG/0.5 ML SYRINGE IV (21:56)
[2022-02-25 23:32] LABS: ALB/GLOB Ratio 0.8 RATIO (0.9-2.4); AST(SGOT) 21 U/L (15-37); Alanine Aminotransfer ALT/SGPT 20 U/L (13-56); Albumin, Serum 2.6 g/dL (3.2-5.0); Alkaline Phosphatase 50 U/L (45-117); Anion Gap 6 (5-15); BUN 11 mg/dL (7-18); BUN/Creat Ratio 9.6 RATIO (10-20); Calcium,Total 8.1 mg/dL (8.5-10.1); Chloride 105 mmol/L (98-107); Creatinine, Serum 1.15 mg/dL (0.55-1.02); EST Glomerular Filtration Rate 53 mL/min (>60); Est Glom Filt Rate - Afr Amer 64 mL/min (>60); Estimated Creatinine Clearance 45.77 ml/min; Globulin 3.3 g/dL (2.2-4.2); Glucose 201 mg/dL (74-106); Potassium 4.1 mmol/L (3.5-5.1); Protein, Total 5.9 g/dL (6.4-8.2); Sodium Level 136 mmol/L (136-145)
[2022-02-26] MEDS: Lactated Ringers 1,000 ML 125 ML IV (00:41)
[2022-02-26 03:50] VITALS: BP 105/53; PULSE 75; RESP 16; TEMP 37.1; O2SAT 99
[2022-02-26] MEDS: Acetaminophen 500 MG Tablet 1000 MG PO ×2 (04:06→10:39)
[2022-02-26] MEDS: oxyCODONE 5 MG Tablet PO (04:06)
[2022-02-26 06:28] LABS: Absolute Lymphocyte Count 1.31 X10^3/uL (0.83-4.51); Basophil# 0.01 X10^3/uL; Basophil% 0.1 % (0-1); Eosinophil# 0.02 X10^3/uL; Eosinophils% 0.2 % (0-5); Hematocrit 33.5 % (37-47); Lymphocyte # 1.31 X10^3/ul (0.83-4.51); Lymphocyte % 10.7 % (19-41); Mean Corp Hgb Conc 32.8 g/dL (32-36); Mean Corpuscular Hgb 34.5 pg (27.0-32.0); Mean Platelet Vol. 11.4 fl (6.2-12.0); Monocyte# 0.93 X10^3/uL; Monocyte% 7.6 % (0-10); NRBC Flagged by Analyzer 0 % (0-5); Neutrophil # 9.97 X10^3/uL (2.7-7.7); Neutrophil % 80.9 % (47-70); Platelet Count 120 K/mm3 (150-450); RBC Distribution Width CV 13.7 % (11.6-14.6); RBC Distribution Width SD 53.4 fl (35.1-43.9); Red Blood Count 3.19 M/mm3 (4.2-5.4); White Blood Count 12.3 K/mm3 (4.4-11.0)
[2022-02-26 06:49] VITALS: BP 100/69; PULSE 71; RESP 16; TEMP 36.9; O2SAT 98
[2022-02-26 06:50] LABS: ALB/GLOB Ratio 0.7 RATIO (0.9-2.4); AST(SGOT) 37 U/L (15-37); Alanine Aminotransfer ALT/SGPT 22 U/L (13-56); Albumin, Serum 2.2 g/dL (3.2-5.0); Alkaline Phosphatase 47 U/L (45-117); Anion Gap 5 (5-15); BUN 10 mg/dL (7-18); BUN/Creat Ratio 11.2 RATIO (10-20); Calcium,Total 7.8 mg/dL (8.5-10.1); Chloride 108 mmol/L (98-107); Creatinine, Serum 0.89 mg/dL (0.55-1.02); EST Glomerular Filtration Rate 71 mL/min (>60); Est Glom Filt Rate - Afr Amer 86 mL/min (>60); Estimated Creatinine Clearance 59.15 ml/min; Globulin 3.2 g/dL (2.2-4.2); Glucose 127 mg/dL (74-106); Potassium 4.4 mmol/L (3.5-5.1); Protein, Total 5.4 g/dL (6.4-8.2); Sodium Level 139 mmol/L (136-145)
--- NOTE | 2022-02-26 07:12 | PCM.PN.OB ---
Subjective Subjective Patient doing well without complaints. Tolerating PO fluids. Denies chest pain, shortness of breath, calf pain/swelling, fevers, chills, lightheadedness. She states that she still has some residual right flank pain but it is much improved. Objective Data Objective Data Vital Signs: Vital Signs Temp Pulse Resp BP Pulse Ox O2 Del Method O2 Flow Rate 98.4 F 71 16 100/69 98 Room Air 2 02/26/22 06:49 02/26/22 06:49 02/26/22 06:49 02/26/22 06:49 02/26/22 06:49 02/26/22 06:49 02/25/22 17:22 Oxygen Flow Rate (L/min) 2 Oxygen Delivery Method Room Air Weight: 152 lb Body Mass Index (BMI) 27.8 Intake & Output: Intake and Output for Last 24 Hours 02/24/22 02/25/22 02/26/22 23:59 23:59 23:59 Intake Total 687.5 / 687.5 4667.67 / 4667.67 Output Total 700 / 700 550 / 550 Balance 687.5 / 687.5 3967.67 / 3967.67 -550 / -550 Lab / Micro Data Attestation: I reviewed the patient's lab results. Result Diagrams: 02/26/22 05:15 02/26/22 05:15 Labs: Laboratory Results - last 24 hr 02/25/22 09:05: POC Glucose 98 02/25/22 09:30: Blood Type B POSITIVE, Antibody Screen NEGATIVE 02/25/22 22:40: Sodium 136, Potassium 4.1, Chloride 105, Carbon Dioxide 25.0, Anion Gap 6, BUN 11, Creatinine 1.15 H, Estim Creat Clear Calc 45.77, Est GFR (MDRD) Af Amer 64, Est GFR (MDRD) Non-Af 53 L, BUN/Creatinine Ratio 9.6 L, Glucose 201 H, Calcium 8.1 L, Total Bilirubin 0.30, AST 21, ALT 20, Alkaline Phosphatase 50, Total Protein 5.9 L, Albumin 2.6 L, Globulin 3.3, Albumin/Globulin Ratio 0.8 L 02/26/22 05:15: WBC 12.3 H, RBC 3.19 L, Hgb 11.0 L, Hct 33.5 L, MCV 105.0 H, MCH 34.5 H, MCHC 32.8, RDW Std Deviation 53.4 H, RDW Coeff of Cecilia 13.7, Plt Count 120 L, MPV 11.4, Immature Gran % (Auto) 0.500, Neut % (Auto) 80.9 H, Lymph % (Auto) 10.7 L, Graham % (Auto) 7.6, Eos % (Auto) 0.2, Baso % (Auto) 0.1, Absolute Neuts (auto) 10.0 H, Absolute Lymphs (auto) 1.31, Nucleated RBC % 0 02/26/22 05:15: Sodium 139, Potassium 4.4, Chloride 108 H, Carbon Dioxide 26.0, Anion Gap 5, BUN 10, Creatinine 0.89, Estim Creat Clear Calc 59.15, Est GFR (MDRD) Af Amer 86, Est GFR (MDRD) Non-Af 71, BUN/Creatinine Ratio 11.2, Glucose 127 H, Calcium 7.8 L, Total Bilirubin 0.30, AST 37, ALT 22, Alkaline Phosphatase 47, Total Protein 5.4 L, Albumin 2.2 L, Globulin 3.2, Albumin/Globulin Ratio 0.7 L Radiography Diagnostic Testing: Radiology Impression Abdomen/Pelvis CT 02/25/22 21:45 IMPRESSION: 1. Free air seen in the upper abdomen. There is also gas in the subcutaneous tissues likely due to recent surgery. There is free fluid seen within the pelvis. Patient is status post hysterectomy. There is no evidence of ureteral obstruction.There is a Castro catheter in the bladder. 2. Small bilateral effusions with bibasilar consolidation which may represent atelectasis or pneumonia. Electronically Signed: Randy Dimas MD at 23:01 EDT , ROS Constitutional Constitutional: Reports systems reviewed and no addt'l complaints, except as documented Cardiovascular Cardiovascular: Reports systems reviewed and no addt'l complaints, except as documented Respiratory/Chest Respiratory/Chest: Reports systems reviewed and no addt'l complaints, except as documented Gastrointestinal Gastrointestinal: Reports systems reviewed and no addt'l complaints, except as documented; Denies bloating, constipation, cramping, diarrhea, nausea or vomiting Genitourinary Genitourinary: Reports other Details: Denies vaginal odor, vaginal bleeding, or vaginal discharge ; Denies difficulty urinating or flank pain Musculoskeletal Musculoskeletal: Reports systems reviewed and no addt'l complaints, except as documented Physical Exam Const alert, oriented x3 and no apparent distress General Appearance: cooperative and comfortable Neck General: normal visual inspection Chest Chest: abnormal inspection of the chest and symmetrical chest wall rise; Negative for tenderness Resp normal respiratory effort Effort and Inspection: able to speak in complete sentences Cardio regular rate and regular rhythm GI normal to inspection, nondistended, normoactive bowel sounds Palpation: soft Rectal Exam: other Other Details: non-tender. Incisions are clean, dry, and intact. Bladder / Kidney Exam: catheter in place urethral and CVA tenderness right Assessment & Plan (1) Pelvic pain: (2) Intramural uterine fibroid: (3) Status post hysterectomy: COMMENT: total robotic for 700gram uterus, ureteral catheter used during surgery. - 02/25/22- JV PLAN: Plan patient is s/p robotic hyst and catheterization of right ureter. POD 1 -normal CT and normal Creatinine, do not suspect ureteral damage at this time. 1. routine ERAS protocol postop care- increase ambulation, encourage oral intake and oral control of pain. scds for dvt prophylaxis, patient stable for discharge to home after castro removal
[2022-02-26] MEDS: Ensure Clear 120 ML Liquid PO (07:52)
[2022-02-26 08:02] VITALS: BP 95/62; PULSE 76; RESP 18; TEMP 37.3; O2SAT 100
--- NOTE | 2022-02-26 09:18 | NURSING ---
Pt walking in [place] with at her side.
[2022-02-26] MEDS: Docusate Sodium 100 MG Capsule PO (10:39)
--- NOTE | 2022-02-26 10:52 | NURSING ---
Pt voided 100cc of clr yellow urine at this time. Tolerated breakfast without difficulty. No other complaints by pt. Will discharge.
== END 2022-02-26 11:11 | disposition home or self-care (01) ==
LOC: ED 10:08 → MS3 10:15
PROVIDERS: Admitting Provider Obstetrics & Gynecology; Emergency Provider Emergency Medicine; PCP Internal Medicine; Visit Provider Obstetrics & Gynecology
PROC: 0UT94ZZ Resection of Uterus, Percutaneous Endoscopic Approach (ICD-10-PCS; CPT 58573; principal; 2022-02-25 09:10)
DX: D25.1 Intramural leiomyoma of uterus (principal); N93.9 Abnormal uterine and vaginal bleeding, unspecified; R11.0 Nausea; N85.2 Hypertrophy of uterus; D72.829 Elevated white blood cell count, unspecified; N92.1 Excessive and frequent menstruation with irregular cycle; N95.1 Menopausal and female climacteric states; F52.0 Hypoactive sexual desire disorder
CPT/HCPCS: 58573; 00840; 36415; 74177; 80053; 82962; 85025; 86850; 86900; 86901; 88307; 93005; 96361; 96374; 96375; 96376; 99218; 99251; 99285; J7030; J7120; Q9967; A4216; G0378; G0463; J1940; J2405

== ENCOUNTER → 2023-02-03 | Outpatient (CLI) | payer OTHER, SELFPAY ==
--- NOTE | 2023-02-03 07:27 | US_ITS ---
STUDY: ABDOMINAL ULTRASOUND - RIGHT UPPER QUADRANT REASON FOR VISIT: Female, 52 years old Epigastric pain TECHNIQUE: Ultrasound evaluation of the right upper quadrant was performed with real-time and static garza-scale imaging. TECHNICAL QUALITY: Adequate. COMPARISON: None. FINDINGS: Liver: The liver measures 16.5 cm. There is normal echogenicity of the liver. The bile ducts are within normal limits. There is hepatic color flow. The direction of portal flow is hepatopetal. There is no demonstrated mass lesion. Gallbladder: Normal distended gallbladder. The gallbladder wall measures 2 mm. There is a negative sonographic Sales''s sign. There is no pericholecystic fluid. There are no gallstones. Common Bile Duct (C.B.D.): The common bile duct measures 2 mm. Pancreas: Normal size of the head, body and tail of the pancreas. There is normal echogenicity of the pancreas. There is no demonstrated pancreatic mass or cyst. Right Kidney: Normal size of the right kidney. The right kidney measures 9.9 cm x 5.5 cm x 4.4 cm. Normal renal cortex. The right cortex measures 1.8 cm. There is no demonstrated renal mass or cyst. There is no right hydronephrosis. US/Abdomen Limited IMPRESSION: Normal right upper quadrant ultrasound examination. Electronically Signed: Guicho Oglesby MD at 13:29 EDT ,
== END | disposition home or self-care (01) ==
LOC: US 07:27
PROVIDERS: PCP Internal Medicine; Referring Provider Internal Medicine; Visit Provider Internal Medicine
DX: R10.13 Epigastric pain (principal)
CPT/HCPCS: 76705

== ENCOUNTER → 2023-08-14 | Outpatient (CLI) | payer OTHER, SELFPAY ==
--- NOTE | 2023-08-14 07:29 | BI_ITS ---
MAMMOGRAPHY - BILATERAL SCREENING REASON FOR EXAM: Female, 53 years old. Routine annual screening examination. PERTINENT HISTORY: Aunt with breast cancer. TECHNIQUE: Digital bilateral breast kelli (3D mammographic acquisition) in the CC and MLO projections. 2-D mediolateral oblique (MLO) and craniocaudad (CC) views of both breasts were obtained. CAD: Full Field Digital Mammography with Computer Added Detection was performed. COMPARISON: Comparison is made with prior study dated February 25, 2021 and April 13, 2019. FINDINGS: Breast Composition: There are scattered areas of fibroglandular density. There are no dominant masses or suspicious calcifications. No other significant abnormalities are identified. There has been no significant change since the prior study. BI/SCRN MAMM (CAD)W/KELLI BILAT IMPRESSION: Stable bilateral screening mammogram. Yearly follow-up mammogram recommended. (A) ASSESSMENT CATEGORY: BIRADS Category 1: Negative. A letter regarding these results will be sent to the patient by the facility within 30 days. Approximately 10% of breast cancers are not detected by mammography. A normal mammogram should not delay biopsy of a clinically suspicious abnormality. [id number] Electronically Signed: Guicho Oglesby MD at 15:44 EST ,
--- OUTSIDE RECORDS SUMMARY | 2023-08-14 07:31 | XMS RPT_ITS | CCD ---
Author Name Unknown Address [address] [facility] [address] [place] [address] Organization [facility] Care Team Providers Care Edi Specialist Name Role Phone None, No PCP Unavailable Unavailable Unavailable Unavailable Unavailable Unavailable Unavailable Unavailable Medications Completed/Discontinued Medications Medication Drug Class(es) Dates Sig (Normalized) Sig (Original) estradiol 0.5 mg oral tablet (2 sources) Estrogen Start: 11-11-2022 take 1 tablet by mouth once daily Estradiol 0.5 MG Oral Tablet TAKE 1 TABLET BY MOUTH EVERY DAY DIRECTED Quantity: 90 Refills: 4 Ordered: 11-Nov-2022 Tyrell CALLAHAN Arvind Start : 11-Nov-2022 Active Problems Problem Classification Problem Date Documented Da te Episodic/Chronic Menopausal disorders (10 sources) Vaginal dryness; Translations: [Symptomatic menopausal or female climacteric states] Chronic Miscellaneous mental health disorders (5 sources) Lack or loss of sexual desire; Translations: [Decreased libido] Chronic Residual codes; unclassified (2 sources) No current problems or disability; Translations: [Other specified conditions influencing health status] Episodic Results Test Name Value Interpretation Reference Range Facil ity Vital Signs Date Time Vital Sign Value Performing Clinician Faci lity 11-03-2022 07:57-0400 Body height 157.48 cm No PCP None [facility] Work Phone: 11-03-2022 07:57-0400 Body mass index (BMI) [Ratio] 27.71 kg/m2 No PCP None [facility] Work Phone: 11-03-2022 07:57-0400 Body surface area Derived from formula 1.7 m2 No PCP None [facility] Work Phone: 11-03-2022 07:57-0400 Body temperature 95.9 [degF] No PCP None [facility] Work Phone: 11-03-2022 07:57-0400 Body weight 68.72 kg No PCP None [facility] Work Phone: 11-03-2022 07:57-0400 Diastolic blood pressure 86 mm[Hg] No PCP None [facility] Work Phone: 11-03-2022 07:57-0400 Heart rate 63 /min No PCP None [facility] Work Phone: 11-03-2022 07:57-0400 Systolic blood pressure 117 mm[Hg] No PCP [facility] Work Phone: 06-23-2022 10:18-0500 Body height 157.48 cm No PCP None KI[facility]bpl[facility]Ut[facility] Work Phone: 06-23-2022 10:18-0500 Body mass index (BMI) [Ratio] 27.34 kg/m2 No PCP None KG-Hblbyez-Vyxfg [facility] Work Phone: 06-23-2022 10:18-0500 Body surface area Derived from formula 1.69 m2 No PCP None AR-Uldqrty-Zvwov [facility] Work Phone: 06-23-2022 10:18-0500 Body temperature 96.6 [degF] No PCP None XP-Wvrmgvc-Jkhb a [facility] Work Phone: 06-23-2022 10:18-0500 Body weight 67.81 kg No PCP None OF-Kfagpbb-Pvzel [facility] Work Phone: 06-23-2022 10:18-0500 Diastolic blood pressure 79 mm[Hg] No PCP None FR-Cozuefc-Wevzl [facility] Work Phone: 06-23-2022 10:18-0500 Heart rate 91 /min No PCP None ND-Zhnhykv-Dkxqq [facility] Work Phone: 06-23-2022 10:18-0500 Systolic blood pressure 120 mm[Hg] No PCP None OW-Txpvadm-Thdtq [facility] Work Phone: Encounters Encounter Date Encounter Type Care Provider Facility Start: 11-11-2022 Rx Change No PCP None [facility] Work Phone: Start: 11-03-2022 Office outpatient vi sit 15 minutes No PCP None [facility] Work Phone: Start: 09-02-2022 Office outpatient vi sit 15 minutes No PCP None OB-Gtesfsx-Ulveextv [facility] 240 DO Work Phone: Start: 06-23-2022 Office outpatient ne w 45 minutes No PCP None [facility] Work Phone: Start: 06-23-2022 Patient encounter procedure No PCP N one JQ-Tzlfrnb-Xiybk [facility] 411 Work Phone: Procedures Date Procedure Procedure Detail Performing Clinician Hysterectomy No PCP None Plan of Treatment Date Care Activity Detail Author Start: 12-30-2022 EZEKIEL, Provider : Natalie Kimbrough, Status: Eris, Time: 8:20 AM EZEKIEL, Provider: Natalie Kimbrough, Status: Eris, Time: 8:20 AM [facility] Work Phone: Start: 11-15-2022 EZEKIEL, Provider : Arvind Santillan, Status: Eris, Time: 11:40 AM EZEKIEL, Provider: Arvind Santillan, Status: Eris, Time: 11:40 AM [facility] Work Phone: Start: 11-03-2022 FUV, Provider: Natalie Kimbrough, Status: Pen, Time: 8:00 AM FUV, Provider: Natalie Kimbrough, Status: Pen, Time: 8:00 AM VZ-Vpyqsdd-Axdpsxop [facility] 240 DO Work Phone: Start: 10-19-2022 VIRNPVHOME, Provider : Arvind Santillan, Status: Pen, Time: 9:50 AM VIRNPVHOME, Provider: Arvind Santillan, Status: Pen, Time: 9:50 AM XN-Vikaypl-Xdgnvwif SJ[facility] 240 DO Work Phone: Start: 09-02-2022 VIRFUVHOME, Provider : Natalie Kimbrough, Status: Pen, Time: 8:40 AM VIRFUVHOME, Provider: Natalie Kimbrough, Status: Pen, Time: 8:40 AM SB-Gporjaa-Wxlcb [facility] 411 Work Phone: Payers Date Payer Category Payer Policy ID Unknown [employer] History of Present illness Narrative 11-03-2022 Note Date & Type Note Facility 11-03-2022 History of Present illness Narrative Today 11/03/22Ernestine Bryson is a 52 y/o female presents for f/u decreased desire, pelvic examNo side effects from Addyi x 28 days, starting to feel something from itno longer resistant to intimacy, and her flirting w textusing vaginal estrogen cream, purchased some sexual toys, helpsstarted systemic estrogen from Arvind Santillan, no longer sweating at night, feels warmdiscussed other options, would consider testosterone therapy if no perceivedbenefit from addyi, also might consider scream cream from [employer]PMH, PSH, SH, FH reviewed.PMH - none notedPSH- February hysterectomyFH -no urological or female cancersSH - never smokedImported from last notes on 06/23/2022honey Bryson is a 52 y/o female presents for decreased desirestill w menses until recent hysterectomy,emergency hysterectomy d/t mass (benign), Dr. Lowery Woosterstarting to have hot flashes at night, not during dayusing vaginal estrogen cream, open to HRThusband is 51 y/o of 11 years, no children togetherthey both had 3 children each previouslyno children living with themrelationship goodintercourse not very oftenshe feels before he could easily get her in the moodbut now she doesn't have the desire when he tries to initiatethis has been going on 5 years worseningused to take a lot of fore play to get her going, even more nowno pain w intercourse, some drynessestrogen cream since February, has helped drynesslast time tried a vibrator on clitoris didn't helpno hematuria, no UTIsno urgency, frequency or leakagesex never talked about in home growing up w first child at 16,shame difficult when younger but now feels [facility] Work Phone: History of Present illness Narrative 09-02-2022 Note Date & Type Note Facility 09-02-2022 History of Present illness Narrative Today 09/02/22Ernestine Bryson is a 52 y/o female presents for decreased desireBonafide for hot flashes ([place]izen) and desire ([place])no difference in hot flashes or desire, just started 3rd bottle this weekhasn't seen Arvind Augustno yet, doesn't have appt. yetusing estrogen cream, hasn't started the vulva moisturizerPMH - none notedPSH- February hysterectomyFH -no urological or female cancersSH - never smokedImported from last notes on 2Ahoney Bryson is a 52 y/o female presents for decreased desirestill w menses until recent hysterectomy,emergency hysterectomy d/t mass (benign), Dr. Beverley [place]arting to have hot flashes at night, not during dayusing vaginal estrogen cream, open to HRThusband is 51 y/o of 11 years, no children togetherthey both had 3 children each previouslyno children living with themrelationship goodintercourse not very oftenshe feels before he could easily get her in the moodbut now she doesn't have the desire when he tries to initiatethis has been going on 5 years worseningused to take a lot of fore play to get her going, even more nowno pain w intercourse, some drynessestrogen cream since February, has helped drynesslast time tried a vibrator on clitoris didn't helpno hematuria, no UTIsno urgency, frequency or leakagesex never talked about in home growing up w first child at 16,shame difficult when younger but now feels moved pastnia LK-Gurembq-Fzcemgfj SJ[facility] 240 DO Work Phone: History of Present illness Narrative 06-23-2022 Note Date & Type Note Facility 06-23-2022 History of Present illness Narrative Today 06/23/2022pril Adelaide is a 52 y/o female presents for loss libidostill w menses until recent hysterectomy,emergency hysterectomy d/t mass, Dr. Beverley Hicks to have hot flashes at night, not during dayusing vaginal estrogen creamhusband is 51 y/o of 11 years, no children togetherthey both had 3 children each previouslyno children living with themrelationship goodintercourse not very oftenshe feels before he could easily get her in the moodbut now she doesn't have the desire when he tries to initiatethis has been going on 5 years worseningused to take a lot of fore play to get her going, more nowno pain w intercourselast time tried a vibrator on clitoris didn't helpno hematuria, no UTIsno urgency, frequency or leakagesome dryness, just no painestrogen cream since February, has helped drynesspersists drynessPMH -PSH- February hysterectomyFH -no urological or female cancersSH - smoked, JD-Jmbaxai-Iiccr [facility] [address] Work Phone: History of Present illness Narrative 06-23-2022 Note Date & Type Note Facility 06-23-2022 History of Present illness Narrative Today 06/23/2022pril Adelaide is a 52 y/o female presents for decreased desirestill w menses until recent hysterectomy,emergency hysterectomy d/t mass (benign), Dr. Beverley Hicks to have hot flashes at night, not during dayusing vaginal estrogen cream, open to HRThusband is 51 y/o of 11 years, no children togetherthey both had 3 children each previouslyno children living with themrelationship goodintercourse not very oftenshe feels before he could easily get her in the moodbut now she doesn't have the desire when he tries to initiatethis has been going on 5 years worseningused to take a lot of fore play to get her going, even more nowno pain w intercourse, some drynessestrogen cream since February, has helped drynesslast time tried a vibrator on clitoris didn't helpno hematuria, no UTIsno urgency, frequency or leakagesex never talked about in home growing up w first child at 16,shame difficult when younger but now feels moved pastfeelPMH - none notedPSH- February hysterectomyFH -no urological or female cancersSH - never smoked [facility] Work Phone: Chief Complaint Low sex driveDecreased desireDecreased desireF/u decreased sexual desire, pelvic exam Summary Purpose Family History No Family History Records Found Advance Directives No Advanced Directives Records Found Additional Source Comments (unrecognized sect ion and content) No Status Records Found INFORMATION SOURCE (unrecogn ized section and content) FOR RECORDS PERTAINING TO PATIENTS WHO ARE OR HAVE BEEN ENROLLED IN A CHEMICAL DEPENDENCY/SUBSTANCEABUSE PROGRAM, SOME INFORMATION MAY BE OMITTED. This clinical summary was aggregated from multiple sources. Caution should be exercised in using it in the provision of clinical care. This summary normalizes information from multiple sources, and as a consequence, information in this document may materially change the coding, format and clinical context of patient data. In addition, data may be omitted in some cases. CLINICAL DECISIONS SHOULD BE BASED ON THE PRIMARY CLINICAL RECORDS. [facility] [employer] [facility]. provides no warranty or guarantee of the accuracy or completeness of information in this document.
--- NOTE | 2023-08-14 08:05 | RAD_ITS ---
PROCEDURE: Fluoroscopic guided right shoulder Injection DATE: August 14, 2023 INDICATION: Female, 53 years old. Adhesive capsulitis. PHYSICIAN: Guicho Oglesby M.D. MEDICATIONS: 4 mg of matter methicillin and 4 cc of 1% lidocaine. 2% Lidocaine administered subcutaneously for local anesthesia. ACCESS SITE: Right shoulder. NEEDLE: 22-gauge spinal needle. FLUOROSCOPY TIME (if supplied): (0:30) minutes/seconds. One image was submitted. FINDINGS: The risks, benefits, and alternatives to the procedure were explained to the patient. The specific risks of bleeding, infection, and neurovascular injury were detailed and accepted. Witnessed informed consent was obtained. A 22-gauge spinal needle was positioned under radiographic fluoroscopic localization. Approximately 2 cc of Isovue-300 instilled for localization purposes. Medication was then injected. The patient tolerated the procedure well without any immediate complications. The patient was placed supine with head elevated and returned to the floor in stable condition. RAD/Inj/Asp Epi Jt Should/Hip/Knee IMPRESSION: 1. Successful fluoroscopic guided right shoulder injection. Electronically Signed: Guicho Oglesby MD at 11:08 EST ,
[2023-08-14] MEDS: Lidocaine 2% (5ml sdv) 5 ML VIAL.MPF INFILT (08:35)
[2023-08-14] MEDS: Betamethasone/Betamethasone 30 MG/5 ML Vial 12 MG INTRAARTIC (08:37)
== END | disposition home or self-care (01) ==
LOC: OPBI 07:29
PROVIDERS: PCP Internal Medicine; Referring Provider Obstetrics & Gynecology; Visit Provider Obstetrics & Gynecology
DX: Z12.31 Encounter for screening mammogram for malignant neoplasm of breast (principal); Z80.3 Family history of malignant neoplasm of breast; M75.01 Adhesive capsulitis of right shoulder
CPT/HCPCS: 20610; 77002; 77063; 77067; J0702

== ENCOUNTER → 2024-01-03 | Outpatient (CLI) | payer OTHER, SELFPAY ==
--- NOTE | 2024-01-03 12:23 | EKG12_ITS ---
Test Reason : PREOP Blood Pressure : / mmHG Vent. Rate : 067 BPM Atrial Rate : 067 BPM P-R Int : 162 ms QRS Dur : 070 ms QT Int : 440 ms P-R-T Axes : 006 038 019 degrees QTc Int : 464 ms Normal sinus rhythm Low voltage QRS Borderline ECG Confirmed by DORENE MACKAY, GRZEGORZ ([id number]), scientific editor WINIFRED CARDOZO ([id number]) on 01/04/2024 6:31:52 AM Referred By: Jose Rich Confirmed By:ALIN CATHERINE MD
== END | disposition home or self-care (01) ==
PROVIDERS: PCP Internal Medicine; Referring Provider Student in an Organized Health Care Education/Training Program; Visit Provider Student in an Organized Health Care Education/Training Program
DX: Z01.810 Encounter for preprocedural cardiovascular examination (principal)
CPT/HCPCS: 93005

== ENCOUNTER → 2024-08-16 | Outpatient (CLI) | payer OTHER, SELFPAY ==
--- NOTE | 2024-08-16 07:12 | BI_ITS ---
MAMMOGRAPHY - BILATERAL SCREENING REASON FOR EXAM: Female, 54 years old. Routine annual screening examination. PERTINENT HISTORY: Aunt with breast cancer. TECHNIQUE: Digital bilateral breast kelli (3D mammographic acquisition) in the CC and MLO projections. 2-D mediolateral oblique (MLO) and craniocaudad (CC) views of both breasts were obtained. CAD: Full Field Digital Mammography with Computer Added Detection was performed. COMPARISON: Comparison is made with prior study dated August 14, 2023 and August 28, 2020. FINDINGS: Breast Composition: There are scattered areas of fibroglandular density. There are no dominant masses or suspicious calcifications. No other significant abnormalities are identified. There has been no significant change since the prior study. BI/SCRN MAMM (CAD)W/KELLI BILAT IMPRESSION: Stable bilateral screening mammogram. Yearly follow-up mammogram recommended. (A) ASSESSMENT CATEGORY: BIRADS Category 1: Negative. A letter regarding these results will be sent to the patient by the facility within 30 days. Approximately 10% of breast cancers are not detected by mammography. A normal mammogram should not delay biopsy of a clinically suspicious abnormality. [id number] Electronically Signed: Guicho Oglesby MD at 8:46 EST ,
== END | disposition home or self-care (01) ==
LOC: OPBI 07:12
PROVIDERS: PCP Internal Medicine; Referring Provider Obstetrics & Gynecology; Visit Provider Obstetrics & Gynecology
DX: Z12.31 Encounter for screening mammogram for malignant neoplasm of breast (principal); Z80.3 Family history of malignant neoplasm of breast
CPT/HCPCS: 77063; 77067

== ENCOUNTER → 2025-01-15 | Outpatient (CLI) | payer OTHER, SELFPAY ==
--- NOTE | 2025-01-15 12:41 | NEURO ---
NCS and/or EMG Patient Report Ordering Doctor: Bre Moffett DATE OF SERVICE: 01/15/25November presents with complaints of pain between the 2nd and 3rd digits on the right foot. She describes it as sharp and stabbing. It is intermittent in nature. Electrodiagnostic findings: Peroneal motor nerve demonstrates normal distal latency, amplitude and conduction velocity bilaterally. Tibial motor response is within normal limits bilaterally. Normal tibial and peroneal F?waves. H?reflexes normal bilaterally. Sensory responses within normal limits. Needle EMG testing was performed the lower limbs. All muscles tested showed no evidence of denervation with normal motor unit action potentials. Electrodiagnostic impression: This is a normal electrodiagnostic study of the lower limbs. There is no electrodiagnostic evidence for peripheral neuropathy or lumbosacral radiculopathy. Multi Select Codes Neurology Neurology Interp Codes: 13852-37 Musc test done w/n test comp (interp) (2) and 08057-36 Nrv cndj test 9-10 studies (interp)
== END | disposition home or self-care (01) ==
PROVIDERS: PCP Internal Medicine; Referring Provider Podiatrist; Visit Provider Podiatrist
DX: M79.671 Pain in right foot (principal); M21.371 Foot drop, right foot
CPT/HCPCS: 95886; 95911

== ENCOUNTER → 2025-03-11 | Outpatient (CLI) | payer OTHER, SELFPAY ==
--- OUTSIDE RECORDS SUMMARY | 2025-03-11 07:07 | XMS RPT_ITS | CCD ---
Author Organization [facility] Care Team Providers Care Commodities Requirements Analyst Name Role Phone NIDIA, ARINA Unavailable Unavailable NIDIA, ARINA Unavailable Unavailable NIDIA, ARINA Unavailable Unavailable NIDIA, ARINA Unavailable Unavailable PROVIDER, UNKNOWN Unavailable Unavailable PROVIDER, UNKNOWN Unavailable Unavailable Neeta Smart Unavailable Fast, Jeane A Unavailable Marquis Aleman Unavailable Unavailable Luz Flores Unavailable Unavailable Niurka Brianna Caballero Unavailable Shazia, Ria Unavailable Unavailable Slarb, Patricia Unavailable Unavailable Unavailable Unavailable Bing LOPEZ Neeta Unavailable [phone] Fast DO, Jeane A Unavailable Mark REEDERNLuz Unavailable Unavailable Knob Noster, Ria Unavailable Unavailable Slarb SALES PORTER, Patricia Unavailable Unavailable Unavailable Unavailable Dr. Neeta Smart Primary Care Provider [phone] Dr. Neeta Smart Referring Provider Mekhi LIME MIXER, LIME MIXER-C Carri Attending Provider Reina Smart DOhleen Unavailable [phone] Fast DO, Jeane A Unavailable Dr. Fortino Avendano Emergency Provider [phone] Anila Rodriguez Admit Provider Dr. Anila Rodriguez Attending Provider [phone] Dr. 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 Natalie Dar Attending Unavailab le Kimbrough, Ms. Natalie Brothersella Referring Unavailab le Kimbrough, Ms. Natalie Dar Attending Unavailab le Kimbrough, Ms. Natalie Loella Referring Unavailab le Santillan, Ms. Arvind Collieraret Attending Unavai lable Santillan, Ms. Arvind Collieraret Referring Unavai lable Kimbrough, Ms. Natalie Dar Attending Unavailab le Kimbrough, Ms. Natalie Loella Referring Unavailab le Kimbrough, Ms. Natalie Loella Referring Unavailab le Kimbrough, Ms. Natalie Dodge Attending Unavailab le Bing DO, Neeta Unavailable Fast DO, Jeane A Unavailable Salma SALES PORTER, Lincoln Unavailable Unavailable NATALIE KIMBROUGH Attending Unavailable Bing, Dr. Santacruz Primary Care Provider Dr. Neeta Smart Referring Provider Libia Sanchez, Dr. High Attending Provider Bing LOPEZ, Dr. Santacruz Primary Care Provider Bing LOPEZ, Dr. Santacruz Referring Provider Libia Sanchez DO, Dr. High Attending Provider Zuhair DPM, Dr. Díaz Attending Provider Zuhair DPM, Dr. Díaz Referring Provider Zuhair DPM, Dr. Díaz Other Provider Shani MACKAY, Dr. Serrano Attending Provider Bing, Neeta Primary Care Unavailable VandAnila Carmona Attending Unavailabl e Bing, Neeta Referring Unavailable Bre Moffett Attending Unavailable Bre Moffett Referring Unavailable Bing, Neeta Primary Care Unavailable Libia VelAnila evans Referring Unavailabl e Bing, Neeta Primary Care Unavailable Vande Anila Sanchez Attending Unavailabl e Bing, Neeta Referring Unavailable Bing, Neeta Primary Care Unavailable Vande Anila Sanchez Attending Unavailabl e Bing, Neeta Primary Care Unavailable Vande VelAnila evans Attending Unavailabl e Bing, Neeta Referring Unavailable Bre Moffett Consulting Unavailable Bre Moffett Referring Unavailable Bing, Neeta Primary Care Unavailable Zach Mcleod Attending Unavailable Bing, Neeta Referring Unavailable Anila Rodriguez Attending Unavailabl e Bing, Neeta Primary Care Unavailable Bing, Neeta Referring Unavailable Bing, Neeta Primary Care Unavailable Mikel Baptiste Attending Unavailable Bing, Neeta Referring Unavailable Bing, Neeta Primary Care Unavailable Mikel Baptiste Attending Unavailable Medications Current Medications Medication Drug Class(es) Dates Sig (Normalized) Sig (Original) 24 hr buPROPion hydrochloride 150 mg extended release oral tablet (1 source) Aminoketone Start: 12-10-2024 take 1 tablet by mouth once daily in the morning Bupropion Hcl (Wellbutrin Xl) 150 mg tablet extended release 24 hr Active 150 mg PO EVERY MORNING December 10, 2024 12:00am diphenhydrAMINE hydrochloride 25 mg oral capsule (1 source) Histamine-1 Receptor Antagonist Start: 04-05-2023 take 2 capsules by mouth every six hours as needed Benadryl 25 mg capsule 2 capsule as needed every 6 hrs , Orally 04/05/2023 active Encounter Date: 12/29/2023 Status: 'Taking'; Not Available Not Available Not Available 84 hr estradiol 0.70853 mg/hr transdermal system (15 sources) Estrogen Start: 12-10-2024 Estradiol (Vivelle-Dot) 0.075 mg/24 hr patch semiweekly Active 1 NMA TD TWICE A WEEK December 10, 2024 12:00am apply 1 patch for 3 days alternating with 1 patch for 4 days each week for 3 wks per 4-wk cycle Start: 09-09-2024 End: 12-10-2024 take 1 tablet by mouth twice daily Estradiol 0.5 mg tablet Discontinued 0.5 mg PO TWICE A DAY 180 October 03, 2024 9:13am December 10, 2024 9:49am Start: 05-08-2024 End: 10-02-2024 take 1 tablet by mouth once daily Estradiol 0.5 mg tablet Discontinued 0.5 mg PO DAILY July 15, 2024 4:40pm October 02, 2024 10:22am Start: 11-20-2020 End: 03-30-2022 Estrace 0.1 MG/GM Vaginal Cr eam 1/4 Inch qhsapply to vaginal tissue for one week then 2times a week for 0 days Quantity: 15 {Gram} Refills: 1 Ordered: 30-Mar-2022 Trina Byrnes CMA Start : 20-Nov-2020 End : 30-Mar-2022 Inactive Comments: may substitute equivelant Comment on above: may substitute equiv elant methylprednisolone 4 mg tablets in a dose pack (1 source) methylprednisolo ne 4 mg tablets in a dose pack TAKE 6 TABLETS ON DAY 1 DIRECTED ON PACKAGE AND DECREASE BY 1 TAB EACH DAY FOR A TOTAL OF 6 DAYS active Not Available Not Available Not Available Multivitamin preparation (8 sources) Start: take 1 tablet by mouth once daily Multivitamin Active 1 TABLET PO DAILY March 23, 2021 11:00pm Start: 03-24-2021 take 1 tablet by riaz th once daily Multivitamin Active 1 TABLET PO DAILY March 24, 2021 12:00am Multivitamin tablet (1 source) Start: 03-24-2021 Multivitamin t ablet Active 1 {tbl} PO DAILY March 24, 2021 12:00am oxyCODONE hydrochloride 5 mg oral tablet (1 source) Opioid Agonist take 1-2 tablets by mouth every four hours oxycodone 5 mg tablet TAKE 1 TO 2 TABLETS BY MOUTH EVERY 4 HOURS active Not Available Not Available Not Available psyllium 400 mg oral capsule (4 sources) Start: 03-24-2021 Psyllium Husk (Daily Fiber) 0.4 gram capsule Active 0.4 GM PO DAILY March 24, 2021 12:00am Completed/Discontinued Medications Medication Drug Class(es) Dates Sig (Normalized) Sig (Original) acetaminophen 325 mg / HYDROcodone bitartrate 5 mg oral tablet (9 sources) Opioid Agonist Start: 01-25-2014 End: 11-23-2017 Hydrocodone-Acetami nophen 1 TABLET tablet Discontinued 1 {tbl} PO EVERY 4 HOURS NEEDED as needed for Pain January 25, 2014 12:00am November 23, 2017 2:54pm Start: 01-25-2014 End: 11-23-2017 take 1 tablet by mouth every four hours as needed Hydrocodone-Acetaminophen Discontinued 1 TABLET PO EVERY 4 HOURS NEEDED January 24, 2014 11:00pm November 23, 2017 1:54pm acetaminophen 325 mg / oxyCODONE hydrochloride 5 mg oral tablet (9 sources) Opioid Agonist Start: 02-24-2022 End: 03-10-2022 Oxycodone-Acetaminophen (Percocet) 5-325 mg tablet Discontinued 1 {tbl} PO Q4H as needed for pain 30 7 February 25, 2022 March 10, 2022 11:20am amoxicillin 875 mg / clavulanate 125 mg oral tablet (15 sources) Penicillin-class Antibacterial Start: 07-18-2024 End: 07-28-2024 Amoxicillin-Pot Clavulanate 875-125 mg tablet Discontinued 1 {tbl} PO Q12H 26 05July 18, 2024 1:00am July 27, 2024 1:00am July 28, 2024 1:11am Start: 08-31-2015 End: 11-26-2019 take 1 tablet by mouth twice daily AUGMENTIN, 875-125MG (Oral Tablet) 1 (one) Tablet bid for 0 days Quantity: 20 {Tablet} Refills: 0 Ordered: 31-Aug-2015 Patricia Pickard LPN Start : 31-Aug-2015 End : 26-Nov-2019 Discontinued Comments: This order discontinued per [facility]. Comment on above: This order discontin ued per [facility]. azithromycin 250 mg oral tablet (9 sources) Macrolide Antimicrobial Start: 08-15-19 End: 03-24-20 take 2-5 tablets by mouth once daily Azithromycin 250 mg tablet Discontinued 0 PO .COMPLEX August 15, 2019 1:00am March 24, 2021 9:24am take 500 mg today (day 1), then 250 mg for 4 days (days 2-5) PO benzocaine 15 mg / menthol 3.6 mg oral lozenge (2 sources) Standardized Chemical Allergen Start: 06-06-20 End: 07-18-20 Benzocaine-Menthol (Cepacol Sore Throat (Jose-Men)) 15-3.6 mg lozenge Discontinued 1 NMA MUCOUS MEM Q2H as needed for sore throat June 06, 2024 12:00am July 18, 2024 11:31am Cepacol Sore Thr oat (benzocaine-menthol) 15 mg-2.6 mg lozenges USE 1 LOZENGE EVERY 2 HOURS NEEDED FOR SORE THROAT active Not Available Not Available Not Available benzonatate 100 mg oral capsule (9 sources) Non-narcotic Antitussive Start: 08-15-2019 End: 03-24-2021 take 2 capsules by mouth three times daily as needed for cough Benzonatate 100 mg capsule Discontinued 200 mg PO THREE TIMES A DAY as needed for cough August 15, 2019 1:00am March 24, 2021 9:30am Start: 08-15-2019 End: 03-24-2021 take 200 mg by mouth three times daily Benzonatate Discontinued 200 MG PO THREE TIMES A DAY August 15, 2019 12:00am March 24, 2021 8:30am bifidobacterium infantis 4 mg oral capsule (13 sources) Start: 04-01-2013 End: 10-07-2013 take 1 capsule by mouth once daily ALIGN (Oral Capsule) 1 Capsule qd otc from vitamin aisle for 0 days Quantity: 30 {Capsule} Refills: 3 Ordered: 07-Oct-2013 Albania Flores Start : 01-Apr-2013 End : 07-Oct-2013 Inactive calcium carbonate 1500 mg / cholecalciferol 0.01 mg oral capsule (2 sources) Vitamin D Start: 05-01-2023 End: 05-06-2024 Calcium Carbonate-Vitamin D3 600 mg-10 mcg (400 unit) capsule Discontinued NMA PO May 01, 2023 12:00am May 06, 2024 1:00pm Start: 05-01-2023 Calcium Carbon ate-Vitamin D3 Active CAP PO April 30, 2023 11:00pm calcium polycarbophil 625 mg oral tablet (13 sources) take 1 mg by mouth once daily Fiber 625 MG Oral Tablet daily (625 MG) Inactive cefdinir 300 mg oral capsule (13 sources) Cephalosporin Antibacterial Start : 01-26 End: 02-02 take 1 capsule by mouth twice daily Cefdinir 300 MG Oral Capsule 1 (one) Capsule bid for 7 days Quantity: 14 {Capsule} Refills: 0 Ordered: 27-Jan-2020 Priyankasayra Brianna Start : 27-Jan-2020 End : 03-Feb-2020 Inactive ciprofloxacin 500 mg oral tablet (13 sources) Quinolone Antimicrobial Start : 11-05 End: 11-12 take 1 tablet by mouth twice daily CIPRO, 500MG (Oral Tablet) 1 (one) Tablet bid for 7 days Quantity: 14 {Tablet} Refills: 0 Ordered: 05-Nov-2014 Brianna Bah Start : 05-Nov-2014 End : 12-Nov-2014 Inactive desonide 0.5 mg/ml topical cream (13 sources) Corticosteroid End: 11-08 DESOWEN, 0.05% (External Cream) Unsure Unsure for 0 days Refills: 0 Ordered: 09-Nov-2007 Anila Choe End : 09-Nov-2007 Discontinued docusate sodium 100 mg oral capsule (4 sources) Start : 02-25 End: 05-01 take 1 capsule by mouth once daily Docusate Sodium (Colace) 100 mg capsule Discontinued 100 mg PO DAILY February 25, 2022 12:00am May 01, 2023 1:19pm doxycycline monohydrate 150 mg oral capsule (13 sources) Tetracycline-class Drug Start : 01-26 End: 03-18 take 1 capsule by mouth once Doxycycline Monohydrate 150 MG Oral Capsule 1 (one) Capsule once for 0 days Quantity: 1 {Capsule} Refills: 0 Ordered: 18-Mar-2020 Luz Flores LPN Start : 27-Jan-2020 End : 18-Mar-2020 Inactive estrogens, conjugated (fci) 0.45 mg oral tablet (1 source) Estrogen Start : 05-06 End: 05-08 take 1 tablet by mouth once daily Conjugated Estrogens (Premarin) 0.45 mg tablet Discontinued 0.45 mg PO daily May 06, 2024 12:00am May 08, 2024 9:05am glycopyrrolate 1 mg oral tablet (6 sources) take 1 tablet by mouth twice daily ROBINUL, 1MG (Oral Tablet) 1 tab bid (1 MG) Inactive Comments: [facility] Comment on above: [facility] glycopyrrolate 1 mg oral tablet (7 sources) take 1 tablet by mouth twice daily ROBINUL, 1MG (Oral Tablet) 1 tab bid (1 MG) Inactive Comments: [facility] Comment on above: [facility] hydroCHLOROthiazide 25 mg oral tablet (20 sources) Thiazide Diuretic Start : 11-23 End: 08-18 -2021 Hydrochlorothiazide 25 mg tablet Discontinued PO 30 November 23, 2017 12:00am March 24, 2021 9:30am Start: 11-23-2017 End: 03-30-2022 Hydrochlorothiazide Disconti nued PO November 22, 2017 11:00pm March 24, 2021 8:30am hydroCHLOROthiazide 25 mg / triamterene 37.5 mg oral capsule (13 sources) Potassium-sparing Diuretic, Thiazide Diuretic Start: 06-09-2008 End: 03-22-2013 take 1 capsule by mouth once daily TRIAMTERENE-HCTZ, 37.5-25MG (Oral Capsule) 1 Capsule QD for 0 days Refills: 0 Ordered: 22-Mar-2013 Justina Stout LPN Start : 09-Jun-2008 End : 22-Mar-2013 Inactive hyoscyamine sulfate 0.125 mg sublingual tablet (20 sources) Start: 11-29-2013 End: 11-26-2019 take 1 tablet under the tongue three times daily as needed Hyoscyamine Sulfate 0.125 MG Sublingual Tablet Sublingual 1 (one) Tab Sublingual Tab Sublingual tid prn for 0 days Quantity: 90 {Unspecified} Refills: 2 Ordered: 26-Nov-2019 Patricia Pickard LPN Start : 29-Nov-2013 End : 26-Nov-2019 Inactive End: 10-07-2013 LEVSIN/SL, 0.125MG (Sublingu al Tablet Sublingual) 1 QD, PRN for 0 days Refills: 0 Ordered: 07-Oct-2013 Albania Flores End : 07-Oct-2013 Inactive ibuprofen 600 mg oral tablet (17 sources) Nonsteroidal Anti-inflammatory Drug Start: 02-25-2022 End: 03-10-2022 take 1 tablet by mouth every six hours as needed for pain Ibuprofen 600 mg tablet Discontinued 600 mg PO EVERY 6 HOURS as needed for pain 03 03February 25, 2022 12:00am March 10, 2022 11:19am one tab every 6 hrs as needed for mild to moderate pain Start: 11-09-2007 End: 10-07-2013 take 3 tablets by mouth three times daily at mealtime as needed IBUPROFEN, 200MG (Oral Tablet) 3 (three) Tablet tid with food prn for 0 days Refills: 0 Ordered: 07-Oct-2013 Albania Flores Start : 09-Nov-2007 End : 07-Oct-2013 Inactive Lactobacillus Comb No.10 (8 sources) Start: 01-25-2014 End: 11-23-2017 Lactobacillus Comb No.10 Dis continued 1 EACH PO DAILY January 24, 2014 11:00pm November 23, 2017 1:54pm Start: 01-25-2014 End: 11-23-2017 Lactobacillus Comb No.10 Dis continued 1 EACH PO DAILY January 25, 2014 12:00am November 23, 2017 2:54pm Lactobacillus Comb No.10 1 EACH capsule (1 source) Start: 01-25-2014 End: 11-23-2017 take 1 capsule by mouth once daily Lactobacillus Comb No.10 1 EACH capsule Discontinued 1 NMA PO DAILY January 25, 2014 12:00am November 23, 2017 2:54pm magnesium oxide 500 mg oral capsule (15 sources) Start: 05-01-2023 End: 05-06-2024 take 1 capsule by mouth once daily Magnesium Oxide 500 mg capsule Discontinued 500 mg PO DAILY May 01, 2023 12:00am May 06, 2024 1:00pm Start: 05-30-2008 End: 10-07-2013 take 1 tablet by mouth twice daily MAGNESIUM OXIDE, 400MG (Oral Tablet) 1 (one) Tablet Twice daily for 0 days Quantity: 60 {Tablet} Refills: 1 Ordered: 07-Oct-2013 Albania Flores Start : 30-May-2008 End : 07-Oct-2013 Inactive megestrol acetate 40 mg oral tablet (9 sources) Progestin Start: 01-27-2022 End: 02-25-2022 take 1 tablet by mouth twice daily Megestrol 40 mg tablet Discontinued 40 mg PO TWICE A DAY 60 January 27, 2022 12:00am February 25, 2022 10:10am nitrofurantoin, macrocrystals 25 mg / nitrofurantoin, monohydrate 75 mg oral capsule (9 sources) Nitrofuran Antibacterial Start: 11-23-2017 End: 11-30-2017 take 1 capsule by mouth every twelve hours at mealtime Nitrofurantoin Monohyd/M-Cryst 100 mg capsule Discontinued 1 NMA PO Q12H 14 7 November 23, 2017 12:00am November 29, 2017 12:00am November 30, 2017 12:06am administer with a meal/food; swallow whole; do not open, crush, dissolve , or chew No current meds at this time (11 sources) End: 08-31-2015 No current meds at this time End : 31-Aug-2015 Discontinued norethindrone acetate 5 mg oral tablet (9 sources) Start: 01-26-2022 End: 01-27-2022 take 1 tablet by mouth three times daily, then take 1 tablet by mouth twice daily Norethindrone Acetate (Aygestin) 5 mg tablet Discontinued 5 mg PO .COMPLEX 45 January 26, 2022 12:00am January 27, 2022 1:35pm 5 mg PO tid until bleeding stops X 24 hr then bid to finish Rx omeprazole 20 mg delayed release oral tablet (20 sources) Proton Pump Inhibitor Start: 04-01-2013 End: 10-07-2013 OMEPRAZOLE, 20MG (Oral Tablet Delayed Release) [address] qd for 30 days Quantity: 30 {Tablet_DR} Refills: 3 Ordered: 07-Oct-2013 Albania Flores Start : 01-Apr-2013 End : 07-Oct-2013 Inactive Start: 08-30-2010 End: 03-22-2013 OMEPRAZOLE, 20MG (Oral Capsu le Delayed Release) [address] qd for 0 days Quantity: 30 {Capsule_DR} Refills: 2 Ordered: 22-Mar-2013 Justina Stout LPN Start : 30-Aug-2010 End : 22-Mar-2013 Inactive ondansetron 4 mg disintegrating oral tablet (13 sources) Serotonin-3 Receptor Antagonist Start: 02-25-2022 End: 05-01-2023 take 1 tablet by mouth every eight hours as needed for nausea and vomiting Ondansetron 4 mg tablet,disintegrating Discontinued 4 mg PO Q8H as needed for nausea and vomiting February 25, 2022 12:00am May 01, 2023 1:19pm Start: 01-25-2014 End: 11-23-2017 take 1 tablet by mouth every eight hours as needed for nausea Ondansetron 4 MG tablet Discontinued 4 mg PO EVERY 8 HOURS NEEDED as needed for Nausea January 25, 2014 12:00am November 23, 2017 2:53pm phenazopyridine hydrochloride 100 mg oral tablet (13 sources) Start: 11-05-2014 End: 11-07-2014 take 1 tablet by mouth three times daily PYRIDIUM, 100MG (Oral Tablet) 1 (one) Tablet tid for 2 days Quantity: 6 {Tablet} Refills: 0 Ordered: 05-Nov-2014 Brianna Bah Start : 05-Nov-2014 End : 07-Nov-2014 Inactive microencapsulated potassium chloride 20 meq extended release oral tablet (13 sources) Start: 05-30-2008 End: 10-07-2013 K-DUR, 20MEQ (Oral Tablet Extended Release) tad Tablet ER uad for 0 days Quantity: 60 {Tablet_ER} Refills: 1 Ordered: 19-Feb-2010 Albania Flores Start : 30-May-2008 End : 07-Oct-2013 Discontinued Comments: This order discontinued per [facility]. Comment on above: This order discontin ued per [facility]. valACYclovir 1000 mg oral tablet (13 sources) Herpesvirus Nucleoside Analog DNA Polymerase Inhibitor, Herpes Simplex Virus Nucleoside Analog DNA Polymerase Inhibitor, Herpes Zoster Virus Nucleoside Analog DNA Polymerase Inhibitor Start: 03-30-2022 take 2 tablets by mouth twice daily Valtrex 1 GM Oral Tablet 2 (two) Tablet bid x 1 for 0 days Quantity: 4 {Tablet} Refills: 3 Ordered: 30-Mar-2022 Neeta Smart DO, DO, Kathleen Fearon DO, Kathleen Start : 30-Mar-2022 Active Start: 01-21-2021 take [address] tablets [address] [facility] twice daily Valtrex 1 GM Oral Tablet 2 (two) Tablet bid x 1 for 0 days Quantity: 4 {Tablet} Refills: 3 Ordered: 21-Jan-2021 Neeta Smart DO, DO, Kathleen Start : 21-Jan-2021 Active Start: 03-18-2020 take 2 tablets by mo uth twice daily Valtrex 1 GM Oral Tablet 2 (two) Tablet bid x 1 for 0 days Quantity: 4 {Tablet} Refills: 3 Ordered: 18-Mar-2020 Neeta Smart DO, DO, Kathleen Start : 18-Mar-2020 Active Start: 12-20-2012 End: 03-22-2013 take 2 tablets by mouth twice daily VALTREX, 1GM (Oral Tablet) 2 (two) Tablet bid x 1 for 0 days Quantity: 4 {Tablet} Refills: 3 Ordered: 22-Mar-2013 Justina Stout LPN Start : 20-Dec-2012 End : 22-Mar-2013 Inactive Problems Active Problems Problem Classification Problem Date Documented Da te Episodic/Chronic Abdominal pain (20 sources) Right lower quadrant pain; Translations: [Epigastric pain] Resolved: 11-26-2019 01-27-2020 Episodic Comment on above: better Benign neoplasm of uterus (9 sources) Intramural leiomyoma of uterus; Translations: [Intramural leiomyoma of uterus] Episodic Calculus of urinary tract (20 sources) Calcium renal calculus ; 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] Resolved: 03-30-2022 01-27-2020 Episodic Comment on above: in Conditions associated with dizziness or vertigo (19 sources) Meniere's disease; Translations: [Meniere's disease, unspecified ear] 01-27-2020 Chronic Comment on above: stable Diseases of white blood cells (9 sources) Leukocytosis; Translations: [Elevated white blood cell count, unspecified] Chronic Fluid and electrolyte disorders (20 sources) Hypokalemia; Translations: [Hypokalemia] Resolved: 03-30-2022 01-27-2020 Episodic Gastritis and duodenitis (20 sources) Acute gastritis; Translations: [Gastritis] Resolved: 03-30-2022 01-27-2020 Episodic Genitourinary symptoms and ill-defined conditions (20 sources) Urinary frequency; Translations: [Dysuria] Resolved: 11-26-2019 01-27-2020 Episodic Immunizations and screening for infectious disease (20 sources) Need for prophylactic vaccination and inoculation against influenza; Translations: [Needs influenza immunization] 11-20-2020 Episodic Menopausal disorders (20 sources) Menopausal syndrome; Translations: [Menopausal and female climacteric states] Onset: 07-07-2023 Chronic Menstrual disorders (20 sources) Menometrorrhagia; Translations: [Excessive and frequent menstruation with irregular cycle] Chronic Miscellaneous mental health disorders (12 sources) Lack of libido; 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] Onset: 07-07-2023 03-24-2021 Chronic Mood disorders (2 sources) Mood swings; Translations: [Emotional lability] 12-10-2024 Episodic Neoplasms of unspecified nature or uncertain behavior (15 sources) Neoplasm of uncertain behavior of skin; Translations: [Neoplasm of uncertain behavior of skin] Resolved: 01-19-2009 01-27-2020 Episodic Comment on above: sent to path Other connective tissue disease (15 sources) Foot joint pain; Translations: [Arthralgia of foot, unspecified laterality] Resolved: 03-30-2022 01-27-2020 Episodic Other connective tissue disease (20 sources) Pain in upper limb; Translations: [Pain of upper extremity, unspecified laterality] Resolved: 11-26-2019 01-27-2020 Episodic Other connective tissue disease (17 sources) Radial styloid tenosynovitis; Translations: [Tenosynovitis, de Quervain] Resolved: 11-26-2019 01-27-2020 Episodic Other connective tissue disease (1 source) Pain in right foot; Translations: [Pain in right foot] Onset: 02-18-2025 Episodic Other diseases of kidney and ureters (15 sources) Infection of kidney, unspecified; Translations: [Infection of kidney, unspecified] Resolved: 11-26-2019 01-27-2020 Episodic Other female genital disorders (16 sources) Vaginal dryness; Translations: [Vaginal dryness] Resolved: 03-30-2022 11-20-2020 Episodic Other female genital disorders (8 sources) Lump of cervix; Translations: [Other specified noninflammatory disorders of cervix uteri] 02-10-2022 Episodic Other female genital disorders (4 sources) Other specified noninflammatory disorders of cervix uteri; Translations: [Other specified noninflammatory disorders of cervix] Episodic Other gastrointestinal disorders (20 sources) Irritable bowel syndrome; Translations: [Irritable bowel syndrome] 01-27-2020 Chronic Comment on above: stay on probiotics s eems to be working C formstable Other gastrointestinal disorders (2 sources) Abdominal bloating; Translations: [Bloating] 01-23-2023 Episodic Other hematologic conditions (15 sources) Erythrocytosis; Translations: [Polycythemia] 01-27-2020 Episodic Other inflammatory condition of skin (15 sources) Rosacea; Translations: [Acne rosacea] Resolved: 03-30-2022 01-27-2020 Chronic Other injuries and conditions due to external causes (15 sources) Insect bite - wound; Translations: [Bug bite, initial encounter] Resolved: 03-18-2020 01-27-2020 Episodic Comment on above: ? tick vs other [facility] nurse who thought was tick Other lower respiratory disease (20 sources) Cough; Translations: [Cough] Resolved: 11-26-2019 01-27-2020 Episodic Comment on above: think ginsamuel aurea walker [facility] call not better Other nervous system disorders (1 source) Other disorders of peripheral nervous system; Translations: [Other disorders of peripheral nervous system] Onset: 02-18-2025 Chronic Other non-traumatic joint disorders (15 sources) Joint pain; Translations: [Diffuse arthralgia] Resolved: 03-30-2022 01-27-2020 Episodic Other non-traumatic joint disorders (15 sources) Hand joint pain; Translations: [Arthralgia of hand, unspecified laterality] Resolved: 03-30-2022 01-27-2020 Episodic Comment on above: left Other non-traumatic joint disorders (9 sources) Pain of left shoulder joint; Translations: [Pain in joint of left shoulder] Resolved: 03-30-2022 11-20-2020 Episodic Other nutritional; endocrine; and metabolic disorders (18 sources) Body mass index 25-29 - overweight; Translations: [BMI 28.0-28.9,adult] Resolved: 03-18-2020 01-27-2020 Chronic Other nutritional; endocrine; and metabolic disorders (17 sources) Body mass index 25-29 - overweight; Translations: [BMI 27.0-27.9,adult] Resolved: 03-18-2020 11-20-2020 Episodic Other nutritional; endocrine; and metabolic disorders (15 sources) Overweight in adulthood with body mass index of 25 or more but less than 30; Translations: [BMI 27.0-27.9,adult] Resolved: 03-18-2020 11-20-2020 Episodic Residual codes; unclassified (6 sources) Needs influenza immunization; Translations: [Need for prophylactic vaccination and inoculation against influenza] 01-27-2020 Episodic Residual codes; unclassified (16 sources) Decreased libido; Translations: [Reduced libido] Resolved: 03-30-2022 11-20-2020 Episodic Residual codes; unclassified (18 sources) Non-smoker; Translations: [Nonsmoker] 11-20-2020 Episodic Comment on above: left Residual codes; unclassified (1 source) Acquired absence of both cervix and uterus; Translations: [Acquired absence of both cervix and uterus] Episodic Syncope (15 sources) Vasovagal symptom; Translations: [Vasovagal symptom] Resolved: 03-30-2022 01-27-2020 Episodic Comment on above: after I&D of area on leg from bug bite Unclassified (20 sources) Urinary tract infections (20 sources) Lower urinary tract infectious disease; Translations: [Urinary tract infectious disease] 01-27-2020 Episodic Viral infection (19 sources) Recurrent herpes simplex labialis; Translations: [Recurrent cold sores] 01-27-2020 Episodic Past or Other Problems Problem Classification Problem Date Documented Date Episodic/Chronic Administrative/social admission (1 source) Laboratory test due; Translations: [Persons encountering health services in other specified circumstances] Onset: 10-24-2024 Resolved: 10-24-2024 Episodic Other ear and sense organ disorders (13 sources) Hearing loss; Translations: [Unspecified hearing loss, unspecified ear] Resolved: 03-30-2022 01-27-2020 Chronic Other non-traumatic joint disorders (6 sources) Pain of left shoulder joint; Translations: [Pain in joint of left shoulder] 01-27-2020 Other screening for suspected conditions (not mental disorders or infectious disease) (20 sources) Patient encounter status; Translations: [Encounter for screening for lipid disorder] Onset: 09-09-2024 11-20-2020 Episodic Comment on above: last scope 2016 Other upper respiratory infections (20 sources) Acute pharyngitis; Translations: [Acute sinusitis] Onset: 07-18-2024 Resolved: 01-19-2009 01-27-2020 Episodic Unclassified (11 sources) Pain in joint of left shoulder Unclassified (11 sources) Lesion-Unknown behavior (238.2) Unclassified (11 sources) acne rosacea Unclassified (20 sources) dequervains tenosynovitis Unclassified (13 sources) Deliveries (Parity); Translations: [Deliveries (Parity)] 03-18-2020 Comment on above: 3 Unclassified (20 sources) Meniere's disease, unspecified (386.00) Unclassified (17 sources) Patient encounter status; Translations: [Encounter for screening for lipid disorder] 01-27-2020 Unclassified (11 sources) Nephrolithiasis (274.11) Unclassified (11 sources) COLD SORES (054.2) Unclassified (20 sources) Non-smoker; Translations: [Nonsmoker] 03-18-2020 Comment on above: left Unclassified (13 sources) Pregnancies (); Translations: [Pregnancies ()] 03-18-2020 Comment on above: 3 Unclassified (20 sources) Unspecified Diagnosis 01-27-2020 Unclassified (11 sources) Infection of kidney, unspecified (590.9) Unclassified (20 sources) Abdominal Pain,RLQ (789.03) Unclassified (11 sources) Polycythemia Unclassified (11 sources) Pharyngitis, acute Unclassified (20 sources) BMI 27.0-27.9,adult Unclassified (11 sources) Bug bite, initial encounter Unclassified (11 sources) Vasovagal symptom Unclassified (11 sources) BMI 28.0-28.9,adult Unclassified (11 sources) Diffuse arthralgia Unclassified (11 sources) Arthralgia of foot, unspecified laterality Unclassified (11 sources) Arthralgia of hand, unspecified laterality Unclassified (10 sources) Recurrent cold sores Results Test Name Value Interpretation Reference Range Facility NCS and/or EMG Patienton NCS and/or EMG Patient [facility] Pulmonary Services/Neurology [address] [place] [address] MR#: [id number] Acct: [id number] Name: ELVIA GALAVIZ Rep #: [id number] : 1970 54 From: Zach Mcleod MD Referring Dr: Bre Moffett DPM Status: REG CLI Location: [facility] Date: 01/15/25 Sex: F C NCS and/or EMG Patient Report Ordering Doctor: Bre Moffett DATE OF SERVICE: 01/15/25November presents with complaints of pain between the 2nd and 3rd digits on the right foot. She describes it as sharp and stabbing. It is intermittent in nature. Electrodiagnostic findings: Peroneal motor nerve demonstrates normal distal latency, amplitude and conduction velocity bilaterally. Tibial motor response is within normal limits bilaterally. Normal tibial and peroneal F???waves. H???reflexes normal bilaterally. Sensory responses within normal limits. Needle EMG testing was performed the lower limbs. All muscles tested showed no evidence of denervation with normal motor unit action potentials. Electrodiagnostic impression: This is a normal electrodiagnostic study of the lower limbs. There is no electrodiagnostic evidence for peripheral neuropathy or lumbosacral radiculopathy. Multi Select Codes Neurology Neurology Interp Codes: 36458-22 Musc test done w/n test comp (interp) (2) and 83221-93 Nrv cndj test 9-10 studies (interp) 01/15/25 1244 Date Zach Mcleod MD CC: DPM Dr. Bre Moffett; Dr. Zach Mcleod MD; Dr. Neeta Smart DO Date Dictated: 01/15/251240 Date Transcribed: 01/15/251240 Philosophy Professor: ARTHUR Signed Normal [facility] Radar Systems Engineer Office Visit Reporton 12-10-2024 Radar Systems Engineer Office Visit Report [facility] [address], [address] [place] [address] OFFICE VISIT Date of Service: 12/10/24 MR#: [id number] Acct: [id number] Name: ELVIA GALAVIZ Rep #: [id number] : 1970 Provider: Dr. 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 Anila Rodriguez, DO) Decreased activity of the bone marrow Surgical History Status post hysterectomy Hx of tubal ligation Social History household members: spouse current occupational status: employed current occupation: [employer] history of recent travel: No Smoking Status: Never smoker alcohol intake: current alcohol intake frequency: a few times a week Alcohol type: wine substance use type: does not use caffeine: No what type of physical activity do you participate in: walking and yoga frequency: 5-6 times per week seatbelt use: always do you feel safe at home: Yes additional social history: - Vasquez HPI 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 She states that her relationship is in jeopardy. Since taking the premarin she has noticed the hot flashes are not as bad or gone. She has trouble remembering to take this twice a day though. History 3 Elective abortions Hx Para 3 Spontaneous abortions Hx # Term Pregnancies Ectopic pregnancies Hx # Pregnancies Multiple births # of living children 3 Past Pregnancies Del. Date Name GA/Weeks Outcome Route Bth Weight Infant Gen Labor Lgth Anesthesia Del Locatn Provider FOB Unknown Misael 1989 Unknown Mala 1989 Unknown Reyna 1994 ROS Const ROS Unobtainable: All systems reviewed are unremarkable except as noted in H Resp Resp: Reports system reviewed and no additional complaints, except as documented; Denies cough GI GI: Reports as per HPI Psych Psych: Reports system reviewed and no additional complaints, except as documented Exam Const General: cooperative, healthy appearing, comfortable and no acute distress Resp Effort Inspection: normal respiratory effort Skin General: no rashes or lesions noted Psych Appearance: grossly normal Speech and Movement: speech and movement normal Coding Level of Care Code Off vis,est,level 4 Diagnoses Lack of libido F52.0 Climacteric N95.1 Mood swings R45.86 Assessment and Plan Assessment and Plan (1) Lack of libido: Status: Acute (2) Climacteric: Status: Acute (3) Mood swings: Status: Acute Medications: New estradiol (Vivelle-Dot) apply 1 patch for 3 days alternating with 1 patch for 4 days each week for 3 wks per 4-wk cycle 1 patch transdermal 2XW 24 ea 4RF 90 days bupropion HCl XL (Wellbutrin XL) 150 mg PO QAM 90 tabs 4RF Discontinued estradiol Discontinued Reason: None 0.5 mg PO BID 90 days 180 tabs 4RF Plan plan is to try the estrgen patch - rx sent to pharmacy patient was given options for mood swings, decreased libdo, brain fog. She wants to try wellbutrin. She understands after our discussion that it may not completely help with these but may be a stepping stone. she will return in 3 months to discuss progress. 12/10/24 0958 Date Anila Broussard Signature: Date (if applicable) CC: Normal [facility] SCRN MAMM (CAD)W/KELLI BILATo n 08-16-2024 SCRN MAMM (CAD)W/KELLI BILAT [facility] Imaging Services [address] [place] [address] SCRN MAMM (CAD)W/KELLI DINAH MR#: [id number] Acct: [id number] Name: ELVIA GALAVIZ Rep #: [id number] : 1970 F 54 From: Guicho leung MD PCP: Dr. Neeta Smart, DO Status: REG CLI Study: SCRN MAMM (CAD)W/KELLI BILAT Date of Exam: 08/07 Exam# [id number] Ordering Dr: Anila Rodriguez DO [id number] MAMMOGRAPHY - BILATERAL SCREENING REASON FOR EXAM: Female, 54 years old. Routine annual screening examination. PERTINENT HISTORY: Aunt with breast cancer. TECHNIQUE: Digital bilateral breast kelli (3D mammographic acquisition) in the CC and MLO projections. 2-D mediolateral oblique (MLO) and craniocaudad (CC) views of both breasts were obtained. CAD: Full Field Digital Mammography with Computer Added Detection was performed. COMPARISON: Comparison is made with prior study dated August 14, 2023 and August 28, 2020. FINDINGS: Breast Composition: There are scattered areas of fibroglandular density. There are no dominant masses or suspicious calcifications. No other significant abnormalities are identified. There has been no significant change since the prior study. BI/SCRN MAMM (CAD)W/KELLI BILAT IMPRESSION: Stable bilateral screening mammogram. Yearly follow-up mammogram recommended. (A) ASSESSMENT CATEGORY: BIRADS Category 1: Negative. A letter regarding these results will be sent to the patient by the facility within 30 days. Approximately 10% of breast cancers are not detected by mammography. A normal mammogram should not delay biopsy of a clinically suspicious abnormality. [id number] Electronically Signed: Guicho Oglesby MD at 8:46 EST , CC: Dr. Anila Rodriguez DO; Dr. Neeta Smart DO Philosophy Professor: Signed Normal [facility] Urgent Care Visit Reporton 1 09-18-2023 Urgent Care Visit Report [facility] [address], [address] [place] [address] OFFICE VISIT Date of Service: 07/18/24 MR#: [id number] Acct: [id number] Name: ELVIA GALAVIZ Rep #: [id number] : 1970 Provider: EMERSON Linares Age/Sex: 54/F [place] [facility] Status: Signed Intake Vital Signs 06/06/24 08:36 07/18/24 10:30 Height 5 ft 2 in 5 ft 2 in Weight: 150 lb 150 lb BMI 27.4 27.4 BP 124/82 H 128/86 H Blood Pressure Location Lt brachial Rt brachial Position Sitting Sitting Respiration 16 16 Pulse 89 68 Pulse Source Monitor Monitor Temp 98.2 F 97.8 F Temp Source Oral Oral Pulse Oximetry (%) 98 97 Oxygen Delivery Method room air room air Intake Visit Reasons: Cough Chief Complaint: cold sx SOB fatigue cough Lathe Mechanic Required: No Accompanied by: Self Is patient in pain?: No Allergies No Known Allergies Allergy (Verified 07/18/24 10:31) Medications ???Medication ???Instructions ???Recorded ???Confirmed ???Type multivitamin 1 tab PO DAILY SUPPLEMENT 03/24/21 07/18/24 History estradiol 0.5 mg tablet 0.5 mg PO DAILY #90 tabs 07/15/24 07/18/24 Rx amoxicillin 875 mg-potassium 1 tab PO Q12H 10 days #20 tabs 07/18/24 07/18/24 Rx clavulanate 125 mg tablet Nurse's Note: pt states she has cold like sx: SOB, fatigue, cough. Pt declines covid and flu testing at todays visit. sx started last week unsure of exact day [facility] Surgical History Status post hysterectomy Hx of tubal ligation Social History household members: spouse current occupational status: employed current occupation: [employer] history of recent travel: No Smoking Status: Never smoker alcohol intake: current alcohol intake frequency: a few times a week Alcohol type: wine substance use type: does not use caffeine: No what type of physical activity do you participate in: walking and yoga frequency: 5-6 times per week seatbelt use: always do you feel safe at home: Yes additional social history: - Vasquez [facility] HPI Chief Complaint: cold sx SOB fatigue cough Details: ELVIA GALAVIZ is a 54 F who presents to the office today for complaint of cough, sinus congestion and postnasal drainage. Patient denies fever, chills, sweats. No nausea, vomiting or diarrhea. No hemoptysis, shortness of breath or difficulty breathing. No loss of taste or smell. No other associated symptoms or alleviating/aggravating factors. ROS Const Constitutional: No other (6 system ROS completed with pertinent findings in the HPI otherwise normal.) Exam Const General: cooperative and healthy appearing HENMT Head: normal to inspection Ears: hearing grossly normal bilaterally, TM's normal bilaterally and EAC's normal Nose: nasal discharge purulent Face and sinus: sinus tenderness frontal and maxillary Mouth: oral mucosae normal Throat: abnormal tonsil bilaterally erythema and hypertrophy 1+ and postnasal drainage Resp Effort Inspection: normal respiratory effort Auscultation: Bilateral: Clear to Auscultation Cardio Palpation: normal PMI Rate: regular rate Rhythm: regular rhythm Neuro General: patient alert and CN's II-XI intact bilaterally Psych Appearance: grossly normal Mental Status: mental status grossly normal Coding Level of Care Code Off vis,new,level 3 Diagnoses Acute sinusitis J01.90 Assessment and Plan Assessment and Plan (1) Acute sinusitis: Status: Acute Plan: Augmentin as prescribed today. Encouraged to get plenty of rest, drink lots of clear liquids, and use Tylenol or Ibuprofen (unless contraindicated) for fever and comfort. Patient also educated on other symptomatic management techniques. To be seen in 7-10 days if no improvement; sooner if worsening of symptoms. Patient advised of potential red flags and when appropriate to report to the ED. Patient verbalized understanding and agreement with all the above. Medications: New amoxicillin-pot clavulanate 875-125 mg 1 TAB PO Q12H 10 days 20 tabs 0RF J01.90 - Acute sinusitis, unspecified 07/18/24 1039 Date Mikel Sharma Signature: Date (if applicable) CC: Normal [facility] Urgent Care Visit Reporton 1 Urgent Care Visit Report [facility] [address] [address] [place] [address] OFFICE VISIT Date of Service: 06/06/24 MR#: [id number] Acct: [id number] Name: ELVIA GALAVIZ Rep #: [id number] : 1970 Provider: EMERSON Linares Age/Sex: 54/F Location[place] [facility] Status: Signed Intake Vital Signs 05/06/24 12:58 06/06/24 08:09 06/06/24 08:36 Height 5 ft 2 in 5 ft 2 in 5 ft 2 in Weight: 150 lb BMI 27.4 BP 124/82 H Blood Pressure Location Lt brachial Position Sitting Respiration 16 Pulse 89 Pulse Source Monitor Temp 98.2 F Temp Source Oral Pulse Oximetry (%) 98 Oxygen Delivery Method room air Intake Visit Reasons: SORE THROAT Chief Complaint: SORE THROAT Lathe Mechanic Required: No Accompanied by: Self Is patient in pain?: Yes Allergies No Known Allergies Allergy (Verified 06/06/24 08:37) Medications ???Medication ???Instructions ???Recorded ???Confirmed ???Type multivitamin 1 tab PO DAILY SUPPLEMENT 03/24/21 06/06/24 History estradiol 0.5 mg tablet 0.5 mg PO DAILY #90 tabs 05/30/24 06/06/24 Rx benzocaine 15 mg-menthol 3.6 mg 1 marlene mucous membrane Q2H PRN sore 06/06/24 06/06/24 Rx lozenges (Cepacol Sore Throat throat #16 ea (benzocaine-menthol)) PFSH Surgical History Status post hysterectomy Hx of tubal ligation Social History household members: spouse current occupational status: employed current occupation: [employer] history of recent travel: No Smoking Status: Never smoker alcohol intake: current alcohol intake frequency: a few times a week Alcohol type: wine substance use type: does not use caffeine: No what type of physical activity do you participate in: walking and yoga frequency: 5-6 times per week seatbelt use: always do you feel safe at home: Yes additional social history: - Vasquez HPI HPI Chief Complaint: SORE THROAT Details: ELVIA GALAVIZ is a 54 F who presents to the office today for complaint of sore throat, cough and congestion for the past 2 days. Patient denies fever, chills, sweats. No hemoptysis, shortness of breath or difficulty breathing. No nausea, vomiting or diarrhea. No loss of taste or smell. No other associated symptoms or alleviating/aggravating factors. ROS Const Constitutional: No other (6 system ROS completed with pertinent findings in the HPI otherwise normal.) Exam Const General: cooperative and healthy appearing HENMS Head: normal to inspection Ears: hearing grossly normal bilaterally, TM's normal bilaterally and EAC's normal Nose: external nose normal and nasal discharge clear Mouth: oral mucosae normal Throat: abnormal tonsil bilaterally Resp Effort Inspection: normal respiratory effort Auscultation: Bilateral: Clear to Auscultation Cardio Rate: regular rate Rhythm: regular rhythm Neuro General: patient alert Psych Appearance: grossly normal Mental Status: mental status grossly normal Results POC Briana Rapid Strep POC Briana Rapid Strep Negative Last Edit by Ashlyn Perez on 06/06/24 08:59 Coding Level of Care Code Off vis,new,level 3 Diagnoses Acute pharyngitis J02.9 Assessment and Plan Assessment and Plan (1) Acute pharyngitis: Status: Acute Orders: Orders POC Briana Rapid Strep A Today Medications: New benzocaine-menthol 15-3.6 mg (Cepacol Sore Throat (benzocaine-menthol)) 1 marlene mucous membrane Q2H PRN 16 ea 0RF sore throat Plan Patient tested negative for strep in the office today. Cepacol as prescribed today. Encouraged to get plenty of rest, drink lots of clear liquids, and use Tylenol or Ibuprofen (unless contraindicated) for fever and comfort. Patient also educated on other symptomatic management techniques. To be seen in 7-10 days if no improvement; sooner if worsening of symptoms. Patient advised of potential red flags and when appropriate to report to the ED. Patient verbalized understanding and agreement with all the above. 06/06/24 0933 Date Mikel Sharma Signature: Date (if applicable) CC: Normal [facility] Radar Systems Engineer Office Visit Reporton 05-06-2024 Radar Systems Engineer Office Visit Report [facility] [address], [address] [place] [id number] OFFICE VISIT Date of Service: 05/06/24 MR#: [id number] Acct: [id number] Name: ANASTACIAELVIA WALTER Rep #: [id number] : 1970 Provider: Dr. 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 Mechanic Required: No Is patient in pain?: No Allergies No Known Allergies Allergy (Verified 05/06/24 12:56) Medications ???Medication ???Instructions ???Recorded ???Confirmed ???Type multivitamin 1 tab PO DAILY SUPPLEMENT 03/24/21 05/06/24 History conjugated estrogens 0.45 mg 0.45 mg PO QDAY #30 tabs 05/06/24 05/06/24 Rx tablet (Premarin) Post menopausal: No Patient : No : No [facility] Surgical History Status post hysterectomy Hx of tubal ligation Social History (Updated 05/06/24 @ 13:00 by Lianna Oconnell) household members: spouse current occupational status: employed current occupation: [employer] history of recent travel: No Smoking Status: Never smoker alcohol intake: current alcohol intake frequency: a few times a week Alcohol type: wine substance use type: does not use caffeine: No what type of physical activity do you participate in: walking and yoga frequency: 5-6 times per week seatbelt use: always do you feel safe at home: Yes additional social history: - Vasquez History 3 Elective abortions Hx Para 3 Spontaneous abortions Hx # Term Pregnancies Ectopic pregnancies Hx # Pregnancies Multiple births # of living children 3 Past Pregnancies Del. Date Name GA/Weeks Outcome Route Bth Weight Gen Labor Lgth Anesthesia Del Locatn Provider FOB Unknown Misael 1989 Unknown Mala 1989 Unknown Reyna 1994 HPI Encounter for routine gynecological examination Details: ELVIA GALAVIZ is a 54 year old who presents for annual exam. also wants to discuss starting HRT. has been experiencing hot flashes an inability to sleep, brain fog, etc. Last PAP: prior to hyst History of abnormal PAP: no Last mammogram: 08/14/23 History of abnormal mammogram: no Colon cancer screening: followed by pcp Other preventative health care screenings: gets blood work at work. her 5 year risk of developing breast cancer is 0.5%, lifetime is 5.6%. Her ASCVD 10 year risk is only 1.7% Female Reproductive History Questions: metorrhagia: No, sexually active: Yes, dyspareunia: No and PCB: No Menopausal Symptoms: No hot flashes, No night sweats, No weight change, No mood changes, No difficulty concentrating, No sleep problems and No change in libido ROS Const Constitutional: Reports as per HPI; Denies fatigue, increased appetite, poor appetite, night sweats, weight gain or weight loss Cardio Card: Denies chest pain Resp Resp: Denies cough or dyspnea GI GI: Reports as per HPI; Denies abdominal pain, bloating, constipation, nausea or vomiting : Reports as per HPI and other; Denies difficulty voiding, dysuria, hematuria, hot flashes, nipple discharge, pelvic pain, prolapse symptoms, urinary frequency, urinary incontinence, urinary urgency, vaginal discharge, vaginal d ryness, vaginal odor or vaginal pruritus Skin Skin/Breast: Denies changing lesions, breast mass, breast pain, breast skin changes or nipple discharge Psych Psych: Denies anxiety, change in libido, depression or difficulty concentrating Exam Const General: cooperative, healthy appearing, comfortable, no acute distress, well developed and well groomed HENMS Head: normal to inspection and normocephalic Ears: hearing grossly normal bilaterally and external ears normal Nose: external nose normal Face and sinus: normal facial exam Neck Neck: normal visual inspection, full ROM and no lymphadenopathy Thyroid: thyroid normal Chest Chest palpation inspection: normal inspection of the chest Breast inspection: normal inspection of the breasts and normal inspection of the axillae Breast palpation: normal palpation of the breasts, normal palpation of the axillae and no axillary lymphadenopathy Resp Effort Inspection: normal respiratory effort GI Inspection: normal to inspection and non-distended Palpation: soft, no hepatosplenomegaly and no guarding General: bladder normal to palpation External Female Exam: normal external appearance, normal appearance of the urethra and no lesions Urethra: normal appearance of the urethra and normal palpation Speculum Exam - Vagina: normal appearance of the vagi (more content not included)... Normal [facility] Absolute lymphocyte counton 02-26-2022 Lymphocytes Auto (Unsp spec) [#/Vol] 1.31 10*3/uL 0.83-4.51 [facility] Work Phone: Basophil percentageon 2021 Basophils/100 WBC (Bld) 0.1 % 0-1 [facility] Work Phone: Bilirubin [Mass/Vol] 0.30 mg/dL 0.20-1.00 [facility] Work Phone: Comment on above: For patients on eltr ombopag therapy, use of Dimension [place] TBIL is not recommended. Chloride [Moles/Vol] 108 mmol/L 98-107 [facility] Work Phone: Eosinophils/100 WBC (Bld) 0.2 % 0-5 [facility] Work Phone: Glucose [Mass/Vol] 127 mg/dL 74-106 [facility] Work Phone: Comment on above: Fasting Glucose resu lt greater than or equal to 126 mg/dL suggests DIABETES MELLITUS per A.D.A. criteria. Neutrophils (Bld) [#/Vol] 10.0 10*3/uL 2.0-7.7 [facility] Work Phone: Neutrophils/100 WBC (Bld) 80.9 % 47-70 [facility] Work Phone: Potassium [Moles/Vol] 4.4 mmol/L 3.5-5.1 [facility] Work Phone: Comment on above: Moderate Hemolysis, Result may be falsely increased. Protein [Mass/Vol] 5.4 g/dL 6.4-8.2 [facility] Work Phone: Sodium [Moles/Vol] 139 mmol/L 136-145 [facility] Work Phone: WBC (Bld) [#/Vol] 12.3 10*3/uL 4.4-11.0 [facility] Work Phone: Blood erythrocytes count (nu mber/volume)on 02-26-2022 RBC (Bld) [#/Vol] 3.19 10*6/uL 4.2-5.4 [facility] Work Phone: Blood hemoglobin measurement (mass/volume)on 02-26-2022 Hemoglobin (Bld) [Mass/Vol] 11.0 g/dL 12.0-15.0 [facility] Work Phone: Blood lymphocytes/100 leukoc yteson 02-26-2022 Lymphocytes/100 WBC (Bld) 10.7 % 19-41 [facility] Work Phone: Blood monocytes/100 leukocyt eson 02-26-2022 Monocytes/100 WBC (Bld) 7.6 % 0-10 [facility] Work Phone: Blood platelet mean volumeon 02-26-2022 Platelet mean volume (Bld) [Entitic vol] 11.4 fL 6.2-12.0 [facility] Work Phone: Determination of erythrocyte mean corpuscular volume (MCV)on 02-26-2022 MCV (RBC) [Entitic vol] 105.0 fL 81-99 [facility] Work Phone: Hematocrit Auto (Bld) [Volum e fraction]on 02-26-2022 Hematocrit (Bld) [Volume fraction] 33.5 % 37-47 [facility] Work Phone: Laboratory - Chemistry and C hemistry - challengeon 02-26-2022 ALP [Catalytic activity/Vol] 47 U/L 45-117 [facility] Work Phone: ALT [Catalytic activity/Vol] 22 U/L 13-56 [facility] Work Phone: CO2 [Moles/Vol] 26.0 mmol/L 21.0-32.0 [facility] Work Phone: Globulin (S) [Mass/Vol] 3.2 g/dL 2.2-4.2 [facility] Work Phone: Urea nitrogen/Creatinin e [Mass ratio] 11.2 mg/mg 10-20 [facility] Work Phone: Laboratory - Hematology and Cell countson 02-26-2022 Erythrocyte distribution width (RBC) [Entitic vol] 53.4 fL 35.1-43.9 [facility] Work Phone: Erythrocyte distribution width (RBC) [Ratio] 13.7 % 11.6-14.6 [facility] Work Phone: Immature granulocytes/100 WBC (Bld) 0.500 % 0.0-0.9 [facility] Work Phone: Comment on above: IG% - Immature Granu locytes (promyelocytes, myelocytes and metamyelocytes) > 1% indicates that a LEFT SHIFT is Present. MCH (RBC) [Entitic mass] 34.5 pg 27.0-32.0 [facility] Work Phone: Nucleated RBC/100 WBC (Bld) [Ratio] 0 % 0-5 [facility] Work Phone: MCHC Auto (RBC) [Mass/Vol]on 02-26-2022 MCHC (RBC) [Mass/Vol] 32.8 g/dL 32-36 [facility] Work Phone: No Panel Informationon 02-26 Estimated Creatinine Clearance Calc 59.15 ml/min [facility] Work Phone: Estimated GFR (MDRD) Amer 86 mL/min >60 [facility] Work Phone: Comment on above: GFR Calc Estimated GFR (MDRD) Non-Af Amer 71 mL/min >60 [facility] Work Phone: Comment on above: Non- GFR Calc Platelets bldon 02-26-2022 Platelets (Bld) [#/Vol] 120 10*3/uL 150-450 [facility] Work Phone: Serum or plasma albumin pearl urement (mass/volume)on 02-26-2022 Albumin [Mass/Vol] 2.2 g/dL 3.2-5.0 [facility] Work Phone: Serum or plasma albumin/glob ulin mass ratioon 02-26-2022 Albumin/Globulin [Mass ratio] 0.7 {ratio} 0.9-2.4 [facility] Work Phone: Serum or plasma calcium pearl urement (mass/volume)on 02-26-2022 Calcium [Mass/Vol] 7.8 mg/dL 8.5-10.1 [facility] Work Phone: Serum or plasma creatinine m easurement (mass/volume)on 02-26-2022 Creatinine [Mass/Vol] 0.89 mg/dL 0.55-1.02 [facility] Work Phone: Comment on above: The validity of the calculated GFR & GFRAA in patients over 70 years has not been determined. Clinical correlation is essential. Serum or plasma urea nitroge n measurement (mass/volume)on 02-26-2022 Urea nitrogen [Mass/Vol] 10 mg/dL 7-18 [facility] Work Phone: Thin prep Papanicolaou smear with manual screeningon 02-26-2022 Thin prep Papanicolaou smear with manual screening 37 U/L 15-37 [facility] Work Phone: Comment on above: Moderate Hemolysis, Result may be falsely increased. Thin prep Papanicolaou smear with manual screening 5 5-15 [facility] Work Phone: Glucose Glucometer (BldC) [M ass/Vol]on 02-25-2022 Glucose [Mass/Vol] 98 mg/dL 74-106 [facility] Work Phone: Comment on above: MANAGEMENT OF PATIEN T CARE PER NURSING PROTOCOL Absolute lymphocyte counton 02-24-2022 Lymphocytes Auto (Unsp spec) [#/Vol] 1.21 10*3/uL 0.83-4.51 [facility] Work Phone: Basophil percentageon 2021 Basophils/100 WBC (Bld) 0.3 % 0-1 [facility] Work Phone: Eosinophils/100 WBC (Bld) 0.2 % 0-5 [facility] Work Phone: Neutrophils (Bld) [#/Vol] 15.7 10*3/uL 2.0-7.7 [facility] Work Phone: Neutrophils/100 WBC (Bld) 86.3 % 47-70 [facility] Work Phone: WBC (Bld) [#/Vol] 18.1 10*3/uL 4.4-11.0 [facility] Work Phone: Blood erythrocytes count (nu mber/volume)on 02-24-2022 RBC (Bld) [#/Vol] 4.26 10*6/uL 4.2-5.4 [facility] Work Phone: Blood hemoglobin measurement (mass/volume)on 02-24-2022 Hemoglobin (Bld) [Mass/Vol] 14.7 g/dL 12.0-15.0 [facility] Work Phone: Blood lymphocytes/100 leukoc yteson 02-24-2022 Lymphocytes/100 WBC (Bld) 6.7 % 19-41 [facility] Work Phone: Blood monocytes/100 leukocyt eson 02-24-2022 Monocytes/100 WBC (Bld) 6.1 % 0-10 [facility] Work Phone: Blood platelet mean volumeon 02-24-2022 Platelet mean volume (Bld) [Entitic vol] 10.0 fL 6.2-12.0 [facility] Work Phone: Determination of erythrocyte mean corpuscular volume (MCV)on 02-24-2022 MCV (RBC) [Entitic vol] 101.9 fL 81-99 [facility] Work Phone: Hematocrit Auto (Bld) [Volum e fraction]on 02-24-2022 Hematocrit (Bld) [Volume fraction] 43.4 % 37-47 [facility] Work Phone: Laboratory - Hematology and Cell countson 02-24-2022 Erythrocyte distribution width (RBC) [Entitic vol] 49.9 fL 35.1-43.9 [facility] Work Phone: Erythrocyte distribution width (RBC) [Ratio] 13.2 % 11.6-14.6 [facility] Work Phone: Immature granulocytes/100 WBC (Bld) 0.400 % 0.0-0.9 [facility] Work Phone: Comment on above: IG% - Immature Granu locytes (promyelocytes, myelocytes and metamyelocytes) > 1% indicates that a LEFT SHIFT is Present. MCH (RBC) [Entitic mass] 34.5 pg 27.0-32.0 [facility] Work Phone: Nucleated RBC/100 WBC (Bld) [Ratio] 0 % 0-5 [facility] Work Phone: MCHC Auto (RBC) [Mass/Vol]on 02-24-2022 MCHC (RBC) [Mass/Vol] 33.9 g/dL 32-36 [facility] Work Phone: Platelets bldon 02-24-2022 Platelets (Bld) [#/Vol] 161 10*3/uL 150-450 [facility] Work Phone: Cervical or vagninal specime n microscopic examination by cytology stain (reported ason 02-15-2022 Cytology report Cyto stain Doc (Cvx/Vag) Comment . [facility] Work Phone: Comment on above: The Pap smear is a s creening test designed to aid in thedetection of premalignant and malignant conditions of theuterine cervix. It is not a diagnostic procedure andshould not be used as the sole means of detecting cervicalcancer. Both false-positive and false-negative reports dooccur. Laboratory - Cytologyon 02-04 [employer] Cyto stain Nom (Cvx/Vag) [ID] Comment . [facility] Work Phone: Comment on above: Wilmar Fountain totechnologist (ASCP) Laboratory - Miscellaneous t estson 02-15-2022 Service comment (Unsp spec) [Interp] Comment . [facility] Work Phone: Comment on above: This liquid based Th inPrep(R) pap test was screened withthe use of an image guided system. Service comment (Unsp spec) [Interp] . . [facility] Work Phone: No Panel Informationon 02-15 Human Papillomavirus Screen Comment . [facility] Work Phone: Comment on above: The HPV DNA reflex c laron were not met with this specimenresult therefore, no HPV testing was performed.Performed at: [address] [place] [id number] Director: Sofya Santillan MD, Phone: [phone] Pathology report final diagnosis Narrative Comment . [facility] Work Phone: Comment on above: NEGATIVE FOR INTRAEP ITHELIAL LESION OR MALIGNANCY. Aerobic Bacterial Culture ([id number])Ordered By: Licensed Acupuncturist on 01-27-2020 Bacteria identified Aer cx Nom (Unsp spec) Final report Normal [facility] Work Phone: Comment on above: PATIENT NOT FASTINGP ERFORMED BY: [place] [id number] [facility] [id number] Information: RIGHT THIGH SRC:RG Bacteria identified Cx Nom (Unsp spec) NG36 Normal [facility] Work Phone: Comment on above: No growth in 36 - 48 hours. PATIENT NOT FASTINGP ERFORMED BY: LEANDRO [place] [id number] [facility] [id number] Information: RIGHT THIGH SRC:RG Lyme Disease Antibody W/ Ref adriana ([id number])Ordered By: Licensed Acupuncturist on 01-27-2020 B. burgdorferi IgG+IgM Qn (S) {index_val} Normal 0.00-0.90 [facility] Work Phone: Comment on above: Negative <0.91 Equiv ocal 0.91 - 1.09 Positive >1.09 PATIENT NOT FASTINGP ERFORMED BY: [facility] [id number] B. burgdorferi IgG+IgM Qn (S) {index_val} Normal 0.00-0.90 [facility]; [facility] Work Phone: Comment on above: Negative <0.91 Equiv ocal 0.91 - 1.09 Positive >1.09 PATIENT NOT FASTINGP ERFORMED BY: [facility] [id number] PETRA (ANTINUCLEAR ANTIBODY) ( [id number])Ordered By: Licensed Acupuncturist on 11-26-2019 Nuclear Ab Ql (S) Negative Normal [facility] Work Phone: Comment on above: PATIENT WAS FASTINGP ERFORMED BY: [place] [id number] [facility] [id number] BY: [address] [id number] Nuclear Ab Ql (S) Negative Normal [facility]; [facility] Work Phone: Comment on above: PATIENT WAS FASTINGP ERFORMED BY: [facility] Arsydf6445 [facility] [id number] BY: [address] [id number] C-REACTIVE PROTEIN ([id number])Or dered By: Licensed Acupuncturist on 11-26-2019 CRP [Mass/Vol] 1 mg/L Normal 0-10 [facility] Work Phone: Comment on above: PATIENT WAS FASTINGP ERFORMED BY: [facility] Mjztnd9691 [facility] [id number] BY: [address] [id number] CBC with auto diff ([id number])Or dered By: Licensed Acupuncturist on 11-26-2019 Basophils (Bld) [#/Vol] 0.0 {x10E3/uL} Normal 0.0-0.2 [facility] Work Phone: Comment on above: PATIENT WAS FASTINGP ERFORMED BY: [facility] Bbdegk6334 [facility] [id number] BY: [address] [id number] Basophils (Bld) [#/Vol] 0.0 10*3/uL Normal 0.0-0.2 [facility]; [facility] Work Phone: Comment on above: PATIENT WAS FASTINGP ERFORMED BY: [facility] Pavzwu4137 [facility] [id number] BY: Lab[address] [id number] Basophils/100 WBC (Bld) 1 % Normal [facility] Work Phone: Comment on above: PATIENT WAS FASTINGP ERFORMED BY: [facility] Fkkmph4406 [facility] [id number] BY: [address] [id number] Eosinophils (Bld) [#/Vol] 0.2 {x10E3/uL} Normal 0.0-0.4 [facility] Work Phone: Comment on above: PATIENT WAS FASTINGP ERFORMED BY: LEANDRO [facility] Yhvnoc8179 [facility] [id number] BY: [address] [id number] Eosinophils (Bld) [#/Vol] 0.2 10*3/uL Normal 0.0-0.4 [facility]; [facility] Work Phone: Comment on above: PATIENT WAS FASTINGP ERFORMED BY: LEANDRO [facility] Pgahwj5958 [facility] [id number] BY: Lab[address] [id number] Eosinophils/100 WBC (Bld) 3 % Normal [facility] Work Phone: Comment on above: PATIENT WAS FASTINGP ERFORMED BY: LEANDRO [facility] Jvxjzz5405 [facility] [id number] BY: [facility] [id number] Erythrocyte distribution width (RBC) [Ratio] 12.0 % Normal 11.7-15.4 [facility] Work Phone: Comment on above: PATIENT WAS FASTINGP ERFORMED BY: [facility] Tqddtm0082 [facility] [id number] BY: [address] [id number] Hematocrit (Bld) [Volume fraction] 44.5 % Normal 34.0-46.6 [facility] Work Phone: Comment on above: PATIENT WAS FASTINGP ERFORMED BY: LEANDRO [facility] Bwdgjl6020 [facility] [id number] BY: [address] [id number] Hemoglobin (Bld) [Mass/Vol] 14.9 g/dL Normal 11.1-15.9 [facility] Work Phone: Comment on above: PATIENT WAS FASTINGP ERFORMED BY: LEANDRO [facility] Vhzhtk4429 [facility] [id number] BY: [address] [id number] Immature granulocytes (Bld) [#/Vol] 0.0 {x10E3/uL} Normal 0.0-0.1 [facility] Work Phone: Comment on above: PATIENT WAS FASTINGP ERFORMED BY: LEANDRO [facility] Htobki4567 [facility] [id number] BY: Lab[address] [id number] Immature granulocytes (Bld) [#/Vol] 0.0 10*3/uL Normal 0.0-0.1 [facility]; [facility] Work Phone: Comment on above: PATIENT WAS FASTINGP ERFORMED BY: LEANDRO [facility] Ajtqrx9203 [facility] [id number] BY: [address] [id number] Immature granulocytes/100 WBC (Bld) 0 % Normal [facility] Work Phone: Comment on above: PATIENT WAS FASTINGP ERFORMED BY: LEANDRO [facility] Bxmpay6344 [facility] [id number] BY: [address] [id number] Lymphocytes (Bld) [#/Vol] 2.5 {x10E3/uL} Normal 0.7-3.1 [facility] Work Phone: Comment on above: PATIENT WAS FASTINGP ERFORMED BY: [facility] Ihlcbz4482 [facility] [id number] BY: [address] [id number] Lymphocytes (Bld) [#/Vol] 2.5 10*3/uL Normal 0.7-3.1 [facility]; [facility] Work Phone: Comment on above: PATIENT WAS FASTINGP ERFORMED BY: [facility]6370 [facility] [id number] BY: [address] [id number] Lymphocytes/100 WBC (Bld) 36 % Normal [facility] Work Phone: Comment on above: PATIENT WAS FASTINGP ERFORMED BY: [place] 0505470 [facility] [id number] BY: [address] [id number] MCH (RBC) [Entitic mass] 33.5 pg Abnormal 26.6-33.0 [facility] Work Phone: Comment on above: PATIENT WAS FASTINGP ERFORMED BY: [place] 0505470 [facility] [id number] BY: [address] [id number] MCHC (RBC) [Mass/Vol] 33.5 g/dL Normal 31.5-35.7 [facility] Work Phone: Comment on above: PATIENT WAS FASTINGP ERFORMED BY: [place] 0505470 [facility] [id number] BY: [address] [id number] MCV (RBC) [Entitic vol] 100 fL Abnormal 79-97 [facility] Work Phone: Comment on above: PATIENT WAS FASTINGP ERFORMED BY: [place] 0505470 [facility] [id number] BY: [address] [id number] Monocytes (Bld) [#/Vol] 0.5 {x10E3/uL} Normal 0.1-0.9 [facility] Work Phone: Comment on above: PATIENT WAS FASTINGP ERFORMED BY: [facility] Omxqme0275 [facility] [id number] BY: [address] [id number] Monocytes (Bld) [#/Vol] 0.5 10*3/uL Normal 0.1-0.9 [facility]; [facility] Work Phone: Comment on above: PATIENT WAS FASTINGP ERFORMED BY: [facility] Devydy1587 [facility] [id number] BY: Lab[address] [id number] Monocytes/100 WBC (Bld) 7 % Normal [facility] Work Phone: Comment on above: PATIENT WAS FASTINGP ERFORMED BY: LEANDRO [facility] Fuchsb8808 [facility] [id number] BY: [address] [id number] Neutrophils (Bld) [#/Vol] 3.7 {x10E3/uL} Normal 1.4-7.0 [facility] Work Phone: Comment on above: PATIENT WAS FASTINGP ERFORMED BY: LEANDRO [facility] Gdszhy3328 [facility] [id number] BY: [address] [id number] Neutrophils (Bld) [#/Vol] 3.7 10*3/uL Normal 1.4-7.0 [facility]; [facility] Work Phone: Comment on above: PATIENT WAS FASTINGP ERFORMED BY: [facility] Fcnfdf1341 [facility] [id number] BY: [address] [id number] Neutrophils/100 WBC (Bld) 53 % Normal [facility] Work Phone: Comment on above: PATIENT WAS FASTINGP ERFORMED BY: [facility] Mkrrsj9008 [facility] [id number] BY: LabCo[address] [id number] Platelets (Bld) [#/Vol] 250 {x10E3/uL} Normal 150-450 [facility] Work Phone: Comment on above: PATIENT WAS FASTINGP ERFORMED BY: LEANDRO LabCocarmel DuenasUoziix0460 [facility] [id number] BY: [facility] [address] [id number] Platelets (Bld) [#/Vol] 250 10*3/uL Normal 150-450 [facility]; [facility] Work Phone: Comment on above: PATIENT WAS FASTINGP ERFORMED BY: LEANDRO LabKathia DuenasHovkzz5294 [facility] [id number] BY: [facility] [id number] RBC (Bld) [#/Vol] 4.45 {x10E6/uL} Normal 3.77-5.28 [facility] Work Phone: Comment on above: PATIENT WAS FASTINGP ERFORMED BY: LEANDRO Duenaslin6370 [facility] [id number] BY: [facility] [id number] RBC (Bld) [#/Vol] 4.45 10*6/uL Normal 3.77-5.28 [facility]; [facility] Work Phone: Comment on above: PATIENT WAS FASTINGP ERFORMED BY: LEANDRO [facility] Svgxns8636 [facility] [id number] BY: [address] [id number] WBC (Bld) [#/Vol] 6.9 {x10E3/uL} Normal 3.4-10.8 [facility] Work Phone: Comment on above: PATIENT WAS FASTINGP ERFORMED BY: LEANDRO [facility] Vrtpaw0967 [facility] [id number] BY: Lab[address] [id number] WBC (Bld) [#/Vol] 6.9 10*3/uL Normal 3.4-10.8 [facility]; [facility] Work Phone: Comment on above: PATIENT WAS FASTINGP ERFORMED BY: [facility] Saznqe2793 [facility] [id number] BY: [address] [id number] CCP ANTIBODY ([id number])Ordered By: Licensed Acupuncturist on 11-26-2019 Cyclic citrullinated peptide IgA+IgG IA Qn 8 {units} Normal 0-19 [facility] Work Phone: Comment on above: Negative <20 Weak po sitive 20 - 39 Moderate positive 40 - 59 Strong positive >59 PATIENT WAS FASTINGP ERFORMED BY: [facility] Ktudgt7179 [facility] [id number] BY: [facility] [id number] LIPID PANEL ([id number])Ordered B y: Licensed Acupuncturist on 11-26-2019 Cholesterol [Mass/Vol] 214 mg/dL Abnormal 100-199 [facility] Work Phone: Comment on above: PATIENT WAS FASTINGP ERFORMED BY: [facility] Uaqezh9190 [facility] [id number] BY: Lab[address] [id number] Cholesterol in HDL [Mass/Vol] 66 mg/dL Normal [facility] Work Phone: Comment on above: PATIENT WAS FASTINGP ERFORMED BY: [facility] Ewcxxg5677 [facility] [id number] BY: [address] [id number] Cholesterol in LDL [Mass/Vol] 118 mg/dL Abnormal 0-99 [facility] Work Phone: Comment on above: PATIENT WAS FASTINGP ERFORMED BY: CB [facility] Kpiyhe7441 [facility] [id number] BY: Lab[address] [id number] Cholesterol in LDL/Cholesterol in HDL [Mass ratio] 1.8 {ratio} Normal 0.0-3.2 [facility] Work Phone: Comment on above: LDL/HDL Ratio Men Wo men 1/2 Avg.Risk 1.0 1.5 Avg.Risk 3.6 3.2 2X Avg.Risk 6.2 5.0 3X Avg.Risk 8.0 6.1 PATIENT WAS FASTINGP ERFORMED BY: CB [facility] Hzywac8765 [facility] [id number] BY: [facility] [id number] Cholesterol in VLDL [Mass/Vol] 30 mg/dL Normal 5-40 [facility] Work Phone: Comment on above: PATIENT WAS FASTINGP ERFORMED BY: CB [facility] Cgsvby7887 [facility] [id number] BY: [facility] [id number] Triglyceride [Mass/Vol] 150 mg/dL Abnormal 0-149 [facility] Work Phone: Comment on above: PATIENT WAS FASTINGP ERFORMED BY: CB [facility] Pqgnjw3985 [facility] [id number] BY: Lab[address] [id number] METABOLIC PANEL, COMPREHENSI VE ([id number])Ordered By: Licensed Acupuncturist on 11-26-2019 Albumin [Mass/Vol] 4.6 g/dL Normal 3.8-4.8 [facility] Work Phone: Comment on above: PATIENT WAS FASTINGP ERFORMED BY: CB [facility] Whopix9773 [facility] [id number] BY: [facility] [id number] Albumin/Globulin [Mass ratio] 1.9 {ratio} Normal 1.2-2.2 [facility] Work Phone: Comment on above: PATIENT WAS FASTINGP ERFORMED BY: LEANDRO [facility] Hasari2393 [facility] [id number] BY: [facility] [address] [id number] ALP [Catalytic activity/Vol] 54 [iU]/L Normal 39-117 [facility] Work Phone: Comment on above: PATIENT WAS FASTINGP ERFORMED BY: LEANDRO [facility] Booppz9199 [facility] [id number] BY: [facility] [address] [id number] ALP [Catalytic activity/Vol] 54 U/L Normal 39-117 [facility]; [facility] Work Phone: Comment on above: PATIENT WAS FASTINGP ERFORMED BY: LEANDRO [facility] Bheknu6900 [facility] [id number] BY: [facility] [id number] ALT [Catalytic activity/Vol] 18 [iU]/L Normal 0-32 [facility] Work Phone: Comment on above: PATIENT WAS FASTINGP ERFORMED BY: [facility] Mgican2964 [facility] [id number] BY: [facility] [address] [id number] ALT [Catalytic activity/Vol] 18 U/L Normal 0-32 [facility]; [facility] Work Phone: Comment on above: PATIENT WAS FASTINGP ERFORMED BY: CB [facility] Fwcwds7297 [facility] [place] [id number] BY: [facility] [id number] AST [Catalytic activity/Vol] 20 [iU]/L Normal 0-40 [facility] Work Phone: Comment on above: PATIENT WAS FASTINGP ERFORMED BY: CB [facility] Xgcrxr5683 [place] RoadDublin [place] [id number] BY: [facility] [address] [id number] AST [Catalytic activity/Vol] 20 U/L Normal 0-40 [facility]; [facility] Work Phone: Comment on above: PATIENT WAS FASTINGP ERFORMED BY: CB [facility] Roxuze8029 [address] RoadFormerly [facility] [id number] BY: [facility] [address] [id number] Bilirubin [Mass/Vol] 0.3 mg/dL Normal 0.0-1.2 [facility] Work Phone: Comment on above: PATIENT WAS FASTINGP ERFORMED BY: CB [facility] Evcrwy8029 [address] RoadFormerly [facility] [id number] BY: [facility] [id number] Calcium [Mass/Vol] 9.9 mg/dL Normal 8.7-10.2 [facility] Work Phone: Comment on above: PATIENT WAS FASTINGP ERFORMED BY: CB [facility] Ikrscq3289 [facility] [place] [id number] BY: [facility] [address] [id number] Chloride [Moles/Vol] 100 mmol/L Normal 96-106 [facility] Work Phone: Comment on above: PATIENT WAS FASTINGP ERFORMED BY: CB [facility] Xljfbd3478 [facility] [place] [id number] BY: [facility] [id number] CO2 [Moles/Vol] 25 mmol/L Normal 20-29 [facility] Work Phone: Comment on above: PATIENT WAS FASTINGP ERFORMED BY: [facility] Pdzith7364 [facility] [id number] BY: [facility] [id number] Creatinine [Mass/Vol] 0.80 mg/dL Normal 0.57-1.00 [facility] Work Phone: Comment on above: PATIENT WAS FASTINGP ERFORMED BY: CB [facility] Avflbq0742 [facility] [id number] BY: [facility] [id number] GFR/1.73 sq M predicted among blacks CKD-EPI (S/P/Bld) [Vol rate/Area] 100 mL/min/1.73 Normal [facility] Work Phone: Comment on above: PATIENT WAS FASTINGP ERFORMED BY: CB [facility] Oiiuch0004 [facility] [id number] BY: Lab[address] [id number] GFR/1.73 sq M predicted among non-blacks CKD-EPI (S/P/Bld) [Vol rate/Area] 87 mL/min/1.73 Normal [facility] Work Phone: Comment on above: PATIENT WAS FASTINGP ERFORMED BY: [facility] Pwvrgc4075 [facility] [id number] BY: [facility] [id number] Globulin (S) [Mass/Vol] 2.4 g/dL Normal 1.5-4.5 [facility] Work Phone: Comment on above: PATIENT WAS FASTINGP ERFORMED BY: CB [facility] Mwbgss1132 [facility] [id number] BY: [facility] [id number] Glucose [Mass/Vol] 84 mg/dL Normal 65-99 [facility] Internal Medicine Work Phone: Comment on above: PATIENT WAS FASTINGP ERFORMED BY: LEANDRO [facility] Xtmqev1241 [address] RoadScotland Memorial Hospitalin [place] [id number] BY: [facility] [id number] Potassium [Moles/Vol] 5.2 mmol/L Normal 3.5-5.2 [facility] Work Phone: Comment on above: PATIENT WAS FASTINGP ERFORMED BY: LEANDRO [facility] Gwbqvw5014 [place] [facility] [place] [id number] BY: [facility] [id number] Protein [Mass/Vol] 7.0 g/dL Normal 6.0-8.5 [facility] Medicine Work Phone: Comment on above: PATIENT WAS FASTINGP ERFORMED BY: LEANDRO [facility] Edtpjm6444 [place] [facility] [id number] BY: Lab[address] [id number] Sodium [Moles/Vol] 139 mmol/L Normal 134-144 [facility] Work Phone: Comment on above: PATIENT WAS FASTINGP ERFORMED BY: LEANDRO [facility] Ptxypj5264 [place] [facility] [place] [id number] BY: Lab[address] [id number] Urea nitrogen [Mass/Vol] 14 mg/dL Normal 6-24 [facility] Work Phone: Comment on above: PATIENT WAS FASTINGP ERFORMED BY: CB [facility] Mtohxq9493 [place] [facility] [place] [id number] BY: [address] [id number] Urea nitrogen/Creatinin e [Mass ratio] 18 mg/mg Normal 9-23 [facility] Work Phone: Comment on above: PATIENT WAS FASTINGP ERFORMED BY: CB [facility] Kgkyvv4619 [place] [facility] [id number] BY: [address] [id number] RHEUMATOID FACTOR-QUANT (864 31)Ordered By: Licensed Acupuncturist on 11-26-2019 Rheumatoid factor Qn [IU]/mL Normal 0.0-13.9 [facility] Work Phone: Comment on above: PATIENT WAS FASTINGP ERFORMED BY: [facility]CoAncor[facility] Psych[facility] HospitalBcwigo8736 [facility] [id number] BY: [address] [id number] Rheumatoid factor Qn [IU]/mL Normal 0.0-13.9 [facility]; [facility] Work Phone: Comment on above: PATIENT WAS FASTINGP ERFORMED BY: LEANDRO [facility] Hnzkbk6468 [facility] [id number] BY: [address] [id number] SED RATE ERYTHROCYTE (12919) Ordered By: Licensed Acupuncturist on 11-26-2019 ESR (Bld) [Velocity] 7 mm/h Normal 0-32 [facility] Work Phone: Comment on above: PATIENT WAS FASTINGP ERFORMED BY: LEANDRO [facility] Shrpjc8592 [facility] [id number] BY: [address] [id number] TSH (34117)Ordered By: Jorge Alberto m Painter Ordnance on 11-26-2019 TSH Qn 1.480 {uIU/mL} Normal 0.450-4.500 [facility] Internal [facility] Work Phone: Comment on above: PATIENT WAS FASTINGP ERFORMED BY: [facility] Nngfey9999 [facility] [id number] BY: [address] [id number] LAZARO CULTURE-OTHER (17621)Ord ered By: Licensed Acupuncturist on 08-31-2015 Bacteria identified Respiratory culture Nom (Unsp spec) Final report Normal [facility] Work Phone: Comment on above: PATIENT NOT FASTINGP ERFORMED BY: LEANDRO [facility] Urxmam1714 [facility] [id number] Information: SRC:KETAN [id number] Bacteria identified Respiratory culture Nom (Unsp spec) RRF Normal [facility] Work Phone: Comment on above: Routine respiratory bhavik PATIENT NOT FASTINGP ERFORMED BY: LEANDRO [facility] Yxbjjf9909 [facility] [id number] Information: SRC:THRSuzanne [id number] Rapid Strep Test, Office (20 336)Ordered By: Jeane Mcdonald on 08-31-2015 S. pyogenes Ag EIA Ql (Throat) Negative Normal [facility]; [facility] Work Phone: S. pyogenes Ag IA Ql (Unsp spec) Negative Normal [facility] Work Phone: URINE LAZARO CULTURE-HAKEEM COL C OUNT (02646)Ordered By: Licensed Acupuncturist on 11-05-2014 Bacteria identified Cx Nom (U) Final report Abnormal [facility] Work Phone: Comment on above: PATIENT NOT FASTINGP ERFORMED BY: LEANDRO [facility] Raorfh6718 [facility] [id number] Bacteria identified Cx Nom (U) Escherichia coli Abnormal [facility] Work Phone: Comment on above: 25,000-50,000 colony forming units per mL PATIENT NOT FASTINGP ERFORMED BY: LEANDRO [facility] Wvhvgi8013 [facility] [id number] Other Antibiotic [Susc] MIHEAD Normal [facility] Work Phone: Comment on above: S = Susceptibl e; I = Intermediate; R = Resistant P = Positive; N = Negative MICS are expressed in micrograms per mL Antibiotic RSLT#1 RSLT#2 RSLT#3 RSLT#4Amoxicillin/Clavulanic Acid SAmpicillin SCefepime SCeftriaxone SCefuroxime SCephalothin ICiprofloxacin SErtapenem SGentamicin SImipenem SLevofloxacin SNitrofurantoin SPiperacillin STetracycline STobramycin STrimethoprim/Sulfa S PATIENT NOT FASTINGP ERFORMED BY: CB [facility] Izihza4888 [place] [facility] [id number] Urinalysis, Office (51767)Or dered By: Patricia Pickard on 11-05-2014 Bilirubin Ql (U) Negative Normal Comprehe nsive Internal Medicine Work Phone: Bilirubin Ql (U) Negative Normal Comprehe ns[facility]; [facility] Work Phone: Glucose Test strip (U) [Mass/Vol] Negative Normal [facility] Work Phone: Glucose Test strip (U) [Mass/Vol] Negative Normal [facility]; [facility] Work Phone: Hemoglobin Ql (U) Hemolyzed Moderate Normal [facility] Work Phone: Ketones Ql (U) Negative Normal Comprehens richard [facility] Work Phone: Ketones Ql (U) Negative Normal Comprehens [facility]; [facility] Work Phone: Leukocyte esterase Test strip Ql (U) Large Normal [facility] Work Phone: Nitrite Ql (U) Negative Normal Comprehens [facility] Work Phone: Nitrite Ql (U) Negative Normal Comprehens [facility]; [facility] Work Phone: pH (U) 7.5 [pH] Normal [facility] Work Phone: Protein Ql (U) Negative Normal Comprehens [facility] Work Phone: Protein Ql (U) Negative Normal Comprehens [facility]; [facility] Work Phone: Specific gravity (U) [Rel density] 1.010 1 Normal [facility] Work Phone: Urobilinogen (24H U) [Mass/Time] Normal Normal [facility] Work Phone: CBC WITH MANUAL DIFF (89892) Ordered By: Licensed Acupuncturist on 12-23-2013 Basophils (Bld) [#/Vol] 0.0 {x10E3/uL} Normal 0.0-0.2 [facility] Work Phone: Comment on above: PATIENT NOT FASTINGP ERFORMED BY: LEANDRO Zaidi6370 [facility] [id number] Information: [id number] Basophils (Bld) [#/Vol] 0.0 10*3/uL Normal 0.0-0.2 [facility]; [facility] Work Phone: Comment on above: PATIENT NOT FASTINGP ERFORMED BY: [address] [id number] Information: 135959,[id number] Basophils/100 WBC (Bld) 1 % Normal 0-3 [facility] Work Phone: Comment on above: PATIENT NOT FASTINGP ERFORMED BY: [address] [id number] Information: [id number] Eosinophils (Bld) [#/Vol] 0.5 {x10E3/uL} Abnormal 0.0-0.4 [facility] Work Phone: Comment on above: PATIENT NOT FASTINGP ERFORMED BY: LEANDRO Almanza[address] [id number] Information: [id number] Eosinophils (Bld) [#/Vol] 0.5 10*3/uL Abnormal 0.0-0.4 [facility]; [facility] Work Phone: Comment on above: PATIENT NOT FASTINGP ERFORMED BY: LabLaur[place] 0505470 [facility] [id number] Information: 305616,[id number] Eosinophils/100 WBC (Bld) 7 % Abnormal 0-5 [facility] Work Phone: Comment on above: PATIENT NOT FASTINGP ERFORMED BY: LabLaurie [place] 0505470 [facility] [id number] Information: [id number],[id number] Erythrocyte distribution width (RBC) [Ratio] 13.0 % Normal 12.3-15.4 [facility] Work Phone: Comment on above: PATIENT NOT FASTINGP ERFORMED BY: LEANDRO Farmer [facility] [id number] Information: [id number] Hematocrit (Bld) [Volume fraction] 41.0 % Normal 34.0-46.6 [facility] Work Phone: Comment on above: PATIENT NOT FASTINGP ERFORMED BY: LEANDRO [facility]zaL[facility] Rdgrko1344 [facility] [id number] Information: [id number] Hemoglobin (Bld) [Mass/Vol] 14.0 g/dL Normal 11.1-15.9 [facility] Work Phone: Comment on above: PATIENT NOT FASTINGP ERFORMED BY: LEANDRO Monahan Axmzxi2105 [facility] [id number] Information: [id number] Immature granulocytes (Bld) [#/Vol] 0.0 {x10E3/uL} Normal 0.0-0.1 [facility] Work Phone: Comment on above: PATIENT NOT FASTINGP ERFORMED BY: LEANDRO Monahan Opybtu4801 [facility] [id number] Information: [id number] Immature granulocytes (Bld) [#/Vol] 0.0 10*3/uL Normal 0.0-0.1 [facility]; [facility] Work Phone: Comment on above: PATIENT NOT FASTINGP ERFORMED BY: LEANDRO [facility] Gbsjvn8500 [facility] [id number] Information: [id number] Immature granulocytes/100 WBC (Bld) 0 % Normal 0-2 [facility] Work Phone: Comment on above: PATIENT NOT FASTINGP ERFORMED BY: LEANDRO AlmanzaLaurie [place] 0505470 [facility] [id number] Information: [id number] Lymphocytes (Bld) [#/Vol] 2.1 {x10E3/uL} Normal 0.7-3.1 [facility] Work Phone: Comment on above: PATIENT NOT FASTINGP ERFORMED BY: LEANDRO Zaidi6370 [facility] [id number] Information: [id number],[id number] Lymphocytes (Bld) [#/Vol] 2.1 10*3/uL Normal 0.7-3.1 [facility]; [facility] Work Phone: Comment on above: PATIENT NOT FASTINGP ERFORMED BY: LEANDRO Hero Wdlaxh[address] [id number] Information: [id number],[id number] Lymphocytes/100 WBC (Bld) 31 % Normal 14-46 [facility] Work Phone: Comment on above: PATIENT NOT FASTINGP ERFORMED BY: LEANDRO Hero Rwnxgw[address] [id number] Information: [id number],[id number] MCH (RBC) [Entitic mass] 33.3 pg Abnormal 26.6-33.0 [facility] Work Phone: Comment on above: PATIENT NOT FASTINGP ERFORMED BY: LEANDRO ArchieLaf[facility] Gpxawp459[address] [id number] Information: [id number] MCHC (RBC) [Mass/Vol] 34.1 g/dL Normal 31.5-35.7 [facility] Work Phone: Comment on above: PATIENT NOT FASTINGP ERFORMED BY: [place] [id number] [facility] [id number] Information: [id number] MCV (RBC) [Entitic vol] 97 fL Normal 79-97 [facility] Work Phone: Comment on above: PATIENT NOT FASTINGP ERFORMED BY: LabLaurie [place] 0505470 [facility] [id number] Information: [id number] Monocytes (Bld) [#/Vol] 0.4 {x10E3/uL} Normal 0.1-0.9 [facility] Work Phone: Comment on above: PATIENT NOT FASTINGP ERFORMED BY: LEANDRO [facility]onUNC [facility] [id number] Information: [id number],[id number] Monocytes (Bld) [#/Vol] 0.4 10*3/uL Normal 0.1-0.9 [facility]; [facility] Work Phone: Comment on above: PATIENT NOT FASTINGP ERFORMED BY: LEANDRO Duenaslin6370 [facility] [id number] Information: [id number] Monocytes/100 WBC (Bld) 6 % Normal 4-12 [facility] Work Phone: Comment on above: PATIENT NOT FASTINGP ERFORMED BY: LEANDRO Duenaslin6370 [facility] [id number] Information: 062347,[id number] Neutrophils (Bld) [#/Vol] 3.9 {x10E3/uL} Normal 1.4-7.0 [facility] Work Phone: Comment on above: PATIENT NOT FASTINGP ERFORMED BY: LEANDRO Monahan Mmwsjk[address] [id number] Information: [id number],[id number] Neutrophils (Bld) [#/Vol] 3.9 10*3/uL Normal 1.4-7.0 [facility]; [facility] Work Phone: Comment on above: PATIENT NOT FASTINGP ERFORMED BY: LEANDRO Duenaslin6370 [facility] [id number] Information: 605125,[id number] Neutrophils/100 WBC (Bld) 55 % Normal 40-74 [facility] Work Phone: Comment on above: PATIENT NOT FASTINGP ERFORMED BY: LEANDRO [facility] [address] [place] [id number] Information: 138893,[id number] Platelets (Bld) [#/Vol] 275 {x10E3/uL} Normal 155-379 [facility] Work Phone: Comment on above: PATIENT NOT FASTINGP ERFORMED BY: LEANDRO Zaidi63Maryam RoyBothwell Regional [facility] [id number] Information: [id number] Platelets (Bld) [#/Vol] 275 10*3/uL Normal 155-379 [facility]; [facility] Work Phone: Comment on above: PATIENT NOT FASTINGP ERFORMED BY: LEANDRO Zaidi6370 [facility] [id number] Information: [id number] RBC (Bld) [#/Vol] 4.21 {x10E6/uL} Normal 3.77-5.28 [facility] Work Phone: Comment on above: PATIENT NOT FASTINGP ERFORMED BY: LEANDRO Monahan Hirgcz9186 [facility] [id number] Information: [id number] RBC (Bld) [#/Vol] 4.21 10*6/uL Normal 3.77-5.28 [facility]; [facility] Work Phone: Comment on above: PATIENT NOT FASTINGP ERFORMED BY: LEANDRO Monahan Olbrqd5899 [facility] [id number] Information: [id number] WBC (Bld) [#/Vol] 6.9 {x10E3/uL} Normal 3.4-10.8 [facility] Work Phone: Comment on above: PATIENT NOT FASTINGP ERFORMED BY: LEANDRO Monahan Lxrzdt5377 [facility] [id number] Information: 306392,[id number] WBC (Bld) [#/Vol] 6.9 10*3/uL Normal 3.4-10.8 [facility]; [facility] Work Phone: Comment on above: PATIENT NOT FASTINGP ERFORMED BY: LEANDRO [facility] Trqina4344 [facility] [id number] Information: 549777,[id number] CBC WITH MANUAL DIFF (66070) Ordered By: Licensed Acupuncturist on 11-29-2013 Basophils (Bld) [#/Vol] 0.0 {x10E3/uL} Normal 0.0-0.2 [facility] Work Phone: Comment on above: PATIENT NOT FASTINGP ERFORMED BY: LEANDRO [facility]CoAncora Psychiatric HospitalJpqxqr5782 [facility] [id number] Information: [id number] Basophils (Bld) [#/Vol] 0.0 10*3/uL Normal 0.0-0.2 [facility]; [facility] Work Phone: Comment on above: PATIENT NOT FASTINGP ERFORMED BY: LEANDRO AlmanzaLafayette Regional Health Center Tfwyec1180 [facility] [id number] Information: [id number] Basophils/100 WBC (Bld) 0 % Normal 0-3 [facility] Work Phone: Comment on above: PATIENT NOT FASTINGP ERFORMED BY: LEANDRO Monahan Znxcbt7697 [facility] [id number] Information: 482104,[id number] Eosinophils (Bld) [#/Vol] 0.5 {x10E3/uL} Abnormal 0.0-0.4 [facility] Work Phone: Comment on above: PATIENT NOT FASTINGP ERFORMED BY: [facility]6370 [facility] [id number] Information: [id number] Eosinophils (Bld) [#/Vol] 0.5 10*3/uL Abnormal 0.0-0.4 [facility]; [facility] Work Phone: Comment on above: PATIENT NOT FASTINGP ERFORMED BY: LabFore[facility]6370 [facility] [id number] Information: 070672,[id number] Eosinophils/100 WBC (Bld) 5 % Normal 0-5 [facility] Work Phone: Comment on above: PATIENT NOT FASTINGP ERFORMED BY: LEANDRO Duenaslin6370 [facility] [id number] Information: [id number] Erythrocyte distribution width (RBC) [Ratio] 13.4 % Normal 12.3-15.4 [facility] Work Phone: Comment on above: PATIENT NOT FASTINGP ERFORMED BY: [address] [id number] Information: [id number] Hematocrit (Bld) [Volume fraction] 46.9 % Abnormal 34.0-46.6 [facility] Work Phone: Comment on above: PATIENT NOT FASTINGP ERFORMED BY: [address] [id number] Information: [id number] Hemoglobin (Bld) [Mass/Vol] 16.2 g/dL Abnormal 11.1-15.9 [facility] Work Phone: Comment on above: PATIENT NOT FASTINGP ERFORMED BY: [address] [id number] Information: [id number] Immature granulocytes (Bld) [#/Vol] 0.0 {x10E3/uL} Normal 0.0-0.1 [facility] Work Phone: Comment on above: PATIENT NOT FASTINGP ERFORMED BY: [address] [id number] Information: [id number] Immature granulocytes (Bld) [#/Vol] 0.0 10*3/uL Normal 0.0-0.1 [facility]; [facility] Work Phone: Comment on above: PATIENT NOT FASTINGP ERFORMED BY: [address] [id number] Information: [id number],[id number] Immature granulocytes/100 WBC (Bld) 0 % Normal 0-2 [facility] Work Phone: Comment on above: PATIENT NOT FASTINGP ERFORMED BY: LEANDRO AlmanzaCo Sycuye7565 [facility] [id number] Information: [id number] Lymphocytes (Bld) [#/Vol] 2.4 {x10E3/uL} Normal 0.7-3.1 [facility] Work Phone: Comment on above: PATIENT NOT FASTINGP ERFORMED BY: LabLaurie [place] 0505470 [facility] [id number] Information: [id number] Lymphocytes (Bld) [#/Vol] 2.4 10*3/uL Normal 0.7-3.1 [facility]; [facility] Work Phone: Comment on above: PATIENT NOT FASTINGP ERFORMED BY: LabCoYolanda Ville 7345770 [facility] [id number] Information: [id number] Lymphocytes/100 WBC (Bld) 25 % Normal 14-46 [facility] Work Phone: Comment on above: PATIENT NOT FASTINGP ERFORMED BY: LabCoYolanda Ville 7345770 [facility] [id number] Information: [id number],[id number] MCH (RBC) [Entitic mass] 33.8 pg Abnormal 26.6-33.0 [facility] Work Phone: Comment on above: PATIENT NOT FASTINGP ERFORMED BY: LabCoAncora Psychiatric HospitalVnwltv0287 [facility] [id number] Information: [id number] MCHC (RBC) [Mass/Vol] 34.5 g/dL Normal 31.5-35.7 [facility] Work Phone: Comment on above: PATIENT NOT FASTINGP ERFORMED BY: LabCoYolanda [place] 7345770 [facility] [id number] Information: 074424,[id number] MCV (RBC) [Entitic vol] 98 fL Abnormal 79-97 [facility] Work Phone: Comment on above: PATIENT NOT FASTINGP ERFORMED BY: LEANDRO Herocarmel DuenasZhtlqp0781 [facility] [id number] Information: [id number] Monocytes (Bld) [#/Vol] 0.8 {x10E3/uL} Normal 0.1-0.9 [facility] Work Phone: Comment on above: PATIENT NOT FASTINGP ERFORMED BY: LEANDRO [facility] Readingcarmel DuenasNaoczp0568 [facility] [id number] Information: [id number],[id number] Monocytes (Bld) [#/Vol] 0.8 10*3/uL Normal 0.1-0.9 [facility]; [facility] Work Phone: Comment on above: PATIENT NOT FASTINGP ERFORMED BY: [facility]DRO [facility] Johudl5776 [facility] [id number] Information: [id number] Monocytes/100 WBC (Bld) 8 % Normal 4-12 [facility] Work Phone: Comment on above: PATIENT NOT FASTINGP ERFORMED BY: LEANDRO [address] [id number] Information: [id number] Neutrophils (Bld) [#/Vol] 5.9 {x10E3/uL} Normal 1.4-7.0 [facility] Work Phone: Comment on above: PATIENT NOT FASTINGP ERFORMED BY: LEANDRO [place] [id number] [facility] [id number] Information: [id number] Neutrophils (Bld) [#/Vol] 5.9 10*3/uL Normal 1.4-7.0 [facility]; [facility] Work Phone: Comment on above: PATIENT NOT FASTINGP ERFORMED BY: LEANDRO Zaidi6370 Jesica EricksonUNC Health Johnston [id number] Information: [id number] Neutrophils/100 WBC (Bld) 62 % Normal 40-74 [facility] Work Phone: Comment on above: PATIENT NOT FASTINGP ERFORMED BY: LEANDRO Zaidi[address] LiamFormerly [facility] [id number] Information: [id number] Platelets (Bld) [#/Vol] 313 {x10E3/uL} Normal 155-379 [facility] Work Phone: Comment on above: PATIENT NOT FASTINGP ERFORMED BY: LEANDRO Zaidi6370 [facility] [id number] Information: [id number] Platelets (Bld) [#/Vol] 313 10*3/uL Normal 155-379 [facility]; [facility] Work Phone: Comment on above: PATIENT NOT FASTINGP ERFORMED BY: LEANDRO Duenaslin6370 [facility] [id number] Information: [id number] RBC (Bld) [#/Vol] 4.80 {x10E6/uL} Normal 3.77-5.28 [facility] Internal Medicine Work Phone: Comment on above: PATIENT NOT FASTINGP ERFORMED BY: LEANDRO Duenaslin6370 [facility] [id number] Information: [id number] RBC (Bld) [#/Vol] 4.80 10*6/uL Normal 3.77-5.28 [facility] Medicine; [facility] Work Phone: Comment on above: PATIENT NOT FASTINGP ERFORMED BY: LEANDRO Duenaslin6370 [facility] [id number] Information: [id number] WBC (Bld) [#/Vol] 9.6 {x10E3/uL} Normal 3.4-10.8 [facility] Internal Medicine Work Phone: Comment on above: PATIENT NOT FASTINGP ERFORMED BY: LEANDRO Zaidi6[address] RoadDublin [place] [id number] Information: [id number] WBC (Bld) [#/Vol] 9.6 10*3/uL Normal 3.4-10.8 [facility]; [facility] Work Phone: Comment on above: PATIENT NOT FASTINGP ERFORMED BY: LEANDRO Zaidi6370 [address] RoadDublin [place] [id number] Information: [id number] METABOLIC PANEL, COMPREHENSI VE ([id number])Ordered By: Licensed Acupuncturist on 11-29-2013 Albumin [Mass/Vol] 4.7 g/dL Normal 3.5-5.5 [facility] Internal Medicine Work Phone: Comment on above: PATIENT NOT FASTINGP ERFORMED BY: LEANDRO Zaidi6370 [address] Roadblin [place] [id number] Albumin/Globulin [Mass ratio] 2.0 {ratio} Normal 1.1-2.5 [facility] Work Phone: Comment on above: PATIENT NOT FASTINGP ERFORMED BY: LEANDRO Zaidi6370 [address] RoadDublin [place] [id number] ALP [Catalytic activity/Vol] 64 [iU]/L Normal 39-117 [facility] Work Phone: Comment on above: PATIENT NOT FASTINGP ERFORMED BY: LEANDRO LabCocarmel DuenasGbqrfb9946 Mooney RoadDublin [place] [id number] ALP [Catalytic activity/Vol] 64 U/L Normal 39-117 [facility]; [facility] Work Phone: Comment on above: PATIENT NOT FASTINGP ERFORMED BY: LEANDRO [facility] Dnpyqm0045 [address] RoadDublin [place] [id number] ALT [Catalytic activity/Vol] 15 [iU]/L Normal 0-32 [facility] Work Phone: Comment on above: PATIENT NOT FASTINGP ERFORMED BY: LEANDRO [facility] Ppeelu1223 [address] RoadDublin [place] [id number] ALT [Catalytic activity/Vol] 15 U/L Normal 0-32 [facility]; [facility] Work Phone: Comment on above: PATIENT NOT FASTINGP ERFORMED BY: CB [facility] Bzvdcl2622 [address] RoadDublin [place] [id number] AST [Catalytic activity/Vol] 21 [iU]/L Normal 0-40 [facility] Work Phone: Comment on above: PATIENT NOT FASTINGP ERFORMED BY: CB [facility] Goydxo6545 [address] RoadDublin [place] [id number] AST [Catalytic activity/Vol] 21 U/L Normal 0-40 [facility]; [facility] Work Phone: Comment on above: PATIENT NOT FASTINGP ERFORMED BY: CB [facility] Svsbvd3090 [address] RoadDublin [place] [id number] Bilirubin [Mass/Vol] 0.6 mg/dL Normal 0.0-1.2 [facility] Internal Medicine Work Phone: Comment on above: PATIENT NOT FASTINGP ERFORMED BY: [facility] Mixdzm7559 [address] RoadDublin [place] [id number] Calcium [Mass/Vol] 10.1 mg/dL Normal 8.7-10.2 [facility] Internal Medicine Work Phone: Comment on above: PATIENT NOT FASTINGP ERFORMED BY: [facility] Hiobxj1219 [address] RoadDublin [place] [id number] Chloride [Moles/Vol] 92 mmol/L Abnormal 97-108 [facility] Internal Medicine Work Phone: Comment on above: PATIENT NOT FASTINGP ERFORMED BY: CB [facility] Mhrsce5641 [address] RoadDublin [place] [id number] CO2 [Moles/Vol] 29 mmol/L Abnormal 19-28 [facility] Internal Medicine Work Phone: Comment on above: PATIENT NOT FASTINGP ERFORMED BY: CB [facility] Wobyol8581 [address] RoadDublin [place] [id number] Creatinine [Mass/Vol] 0.84 mg/dL Normal 0.57-1.00 [facility] Work Phone: Comment on above: PATIENT NOT FASTINGP ERFORMED BY: CB [facility] Tirgnf2711 [address] RoadDublin [place] [id number] GFR/1.73 sq M predicted among blacks CKD-EPI (S/P/Bld) [Vol rate/Area] 98 mL/min/1.73 Normal [facility] Work Phone: Comment on above: PATIENT NOT FASTINGP ERFORMED BY: CB [facility] Kpsvge9271 [address] RoadDublin [place] [id number] GFR/1.73 sq M predicted among non-blacks CKD-EPI (S/P/Bld) [Vol rate/Area] 85 mL/min/1.73 Normal [facility] Work Phone: Comment on above: PATIENT NOT FASTINGP ERFORMED BY: LEANDRO [facility] Imkqbr9328 [address] RoadDublin [place] [id number] Globulin (S) [Mass/Vol] 2.4 g/dL Normal 1.5-4.5 [facility] Work Phone: Comment on above: PATIENT NOT FASTINGP ERFORMED BY: LEANDRO [facility] Ywgxhb1907 [address] RoadDublin [place] [id number] Glucose [Mass/Vol] 88 mg/dL Normal 65-99 [facility] Internal Medicine Work Phone: Comment on above: PATIENT NOT FASTINGP ERFORMED BY: CB [facility] Xoitrv8108 [address] RoadDublin [place] [id number] Potassium [Moles/Vol] 4.0 mmol/L Normal 3.5-5.2 [facility] Work Phone: Comment on above: PATIENT NOT FASTINGP ERFORMED BY: CB [facility] Vphbad4353 [address] RoadDublin [place] [id number] Protein [Mass/Vol] 7.1 g/dL Normal 6.0-8.5 [facility] Internal Medicine Work Phone: Comment on above: PATIENT NOT FASTINGP ERFORMED BY: CB [facility] Ertdly3844 [address] RoadDublin [place] [id number] Sodium [Moles/Vol] 136 mmol/L Normal 134-144 [facility] Internal [facility] Work Phone: Comment on above: PATIENT NOT FASTINGP ERFORMED BY: LEANDRO AlmanzaCocarmel DuenasGflygq5095 [address] Roadblin [place] [id number] Urea nitrogen [Mass/Vol] 18 mg/dL Normal 6-24 [facility] Work Phone: Comment on above: PATIENT NOT FASTINGP ERFORMED BY: LEANDRO [facility] Dtmdmu8698 [address] RoadScotland Memorial Hospitalin [place] [id number] Urea nitrogen/Creatinin e [Mass ratio] 21 mg/mg Normal 9- [facility] Work Phone: Comment on above: PATIENT NOT FASTINGP ERFORMED BY: LEANDRO AlmanzaCorp Apelmp3941 [address] RoadFormerly [facility] [id number] URINE LAZARO CULTURE-HAKEEM COL C OUNT ([id number])Ordered By: Licensed Acupuncturist on 12-04-2012 Bacteria identified Cx Nom (U) Escherichia coli Normal [facility] Work Phone: Comment on above: Greater than 100,000 colony forming units per mL PATIENT NOT FASTINGP ERFORMED BY: LEANDRO [facility] Zmjfop[address] [facility]in [place] [id number] Information: SRC:UR [id number] Bacteria identified Cx Nom (U) Final report Normal [facility] Work Phone: Comment on above: PATIENT NOT FASTINGP ERFORMED BY: LEANDRO [facility] Ramzhb[address] [facility] [id number] Information: SRC:UR [id number] Other Antibiotic [Susc] MIHEAD Normal [facility] Work Phone: Comment on above: S = Susceptibl e; I = Intermediate; R = Resistant P = Positive; N = Negative MICS are expressed in micrograms per mL Antibiotic RSLT#1 RSLT#2 RSLT#3 RSLT#4Amoxicillin/Clavulanic Acid SAmpicillin SCefazolin SCefepime SCeftriaxone SCefuroxime SCephalothin SCiprofloxacin SESBL NErtapenem SGentamicin SImipenem SLevofloxacin SNitrofurantoin SPiperacillin STetracycline STobramycin STrimethoprim/Sulfa S PATIENT NOT FASTINGP ERFORMED BY: LEANDRO [facility] Fsgsik74[address] Martinez [place] [id number] Information: SRC:SMITA [id number] Urinalysis, Office ([id number])Or dered By: Anila Choe on 12-04-2012 Bilirubin Ql (U) Negative Normal Comprehe nsive [facility] Medicine Work Phone: Bilirubin Ql (U) Negative Normal Comprehe nsive [facility]; [facility] Work Phone: Glucose Test strip (U) [Mass/Vol] Negative Normal [facility] Work Phone: Glucose Test strip (U) [Mass/Vol] Negative Normal [facility]; [facility] Work Phone: Hemoglobin Ql (U) Non Hemolyzed Trace Normal [facility] Work Phone: Ketones Ql (U) Negative Normal Comprehens richard [facility] Work Phone: Ketones Ql (U) Negative Normal Comprehens [facility]; [facility] Work Phone: Leukocyte esterase Test strip Ql (U) Moderate Normal [facility] Work Phone: Nitrite Ql (U) Negative Normal Comprehens [facility] Work Phone: Nitrite Ql (U) Negative Normal Comprehens [facility]; [facility] Work Phone: pH (U) 6.5 [pH] Normal [facility] Work Phone: Protein Ql (U) Negative Normal Comprehens [facility] Work Phone: Protein Ql (U) Negative Normal Comprehens [facility]; [facility] Work Phone: Specific gravity (U) [Rel density] 1.025 1 Normal [facility] Work Phone: Urobilinogen (24H U) [Mass/Time] Normal Normal [facility] Work Phone: Urinalysis, Office ([id number])Or dered By: Anila Choe on 10-06-2010 Bilirubin Ql (U) Negative Normal Comprehe nsive [facility] Work Phone: Bilirubin Ql (U) Negative Normal Comprehe nsive [facility]; [facility] Work Phone: Glucose Test strip (U) [Mass/Vol] Negative Normal [facility] Work Phone: Glucose Test strip (U) [Mass/Vol] Negative Normal [facility]; [facility] Work Phone: Hemoglobin Ql (U) Non Hemolyzed Trace Normal [facility] Work Phone: Ketones Ql (U) Negative Normal Comprehens [facility] Work Phone: Ketones Ql (U) Negative Normal Comprehens [facility]; [facility] Work Phone: Leukocyte esterase Test strip Ql (U) Trace Normal [facility] Work Phone: Nitrite Ql (U) Negative Normal Comprehens [facility] Work Phone: Nitrite Ql (U) Negative Normal Comprehens [facility]; [facility] Work Phone: pH (U) 8.5 [pH] Normal [facility] Work Phone: Protein Ql (U) Negative Normal Comprehens [facility] Work Phone: Protein Ql (U) Negative Normal Comprehens [facility]; [facility] Work Phone: Specific gravity (U) [Rel density] 1.020 1 Normal [facility] Work Phone: Urobilinogen (24H U) [Mass/Time] Normal Normal [facility] Work Phone: Metabolic Panel, Basic ([phone])Ordered By: Licensed Acupuncturist on 10-02-2009 Calcium [Mass/Vol] 9.9 mg/dL Normal 8.7-10.2 Compre hensive [facility] Work Phone: Comment on above: PATIENT NOT FASTINGP ERFORMED BY: LEADNRO LabCoAncora Psychiatric HospitalNnedfy9365 [facility] [id number] Information: [id number] Chloride [Moles/Vol] 101 mmol/L Normal 97-108 [facility] Work Phone: Comment on above: PATIENT NOT FASTINGP ERFORMED BY: CB [facility] Fqbzdo0434 [facility] [id number] Information: [id number] CO2 [Moles/Vol] 24 mmol/L Normal 20-32 [facility] Internal Medicine Work Phone: Comment on above: PATIENT NOT FASTINGP ERFORMED BY: LEANDRO [facility] Iiutey8971 [facility] [id number] Information: [id number] Creatinine [Mass/Vol] 0.86 mg/dL Normal 0.57-1.00 [facility] Work Phone: Comment on above: PATIENT NOT FASTINGP ERFORMED BY: LEANDRO [facility] Gjviae4879 [facility] [id number] Information: [id number] GFR/1.73 sq M predicted among blacks MDRD (S/P/Bld) [Vol rate/Area] mL/min/{1.73_m2} Normal [facility] Work Phone: Comment on above: Note: Persistent red uction for 3 months or more in an eGFR<60 mL/min/1.73 m2 defines CKD. Patients with eGFR values>/=60 mL/min/1.73 m2 may also have CKD if evidence of persistentproteinuria is present. Additional information may be found [email or web address]. PATIENT NOT FASTINGP ERFORMED BY: [facility] Albhyo8066 [facility] [id number] Information: [id number] GFR/1.73 sq M.predicted MDRD (S/P/Bld) [Vol rate/Area] mL/min/{1.73_m2} Normal [facility] Work Phone: Comment on above: PATIENT NOT FASTINGP ERFORMED BY: LEANDRO [facility] Qpychh[address] [facility] [id number] Information: [id number] Glucose [Mass/Vol] 70 mg/dL Normal 65-99 [facility] Internal Medicine Work Phone: Comment on above: PATIENT NOT FASTINGP ERFORMED BY: CB [facility] Gjdmmz[address] [facility] [id number] Information: [id number] Potassium [Moles/Vol] 5.2 mmol/L Normal 3.5-5.2 [facility] Work Phone: Comment on above: PATIENT NOT FASTINGP ERFORMED BY: CB [facility] Euqpii3982 [facility] [id number] Information: [id number] Sodium [Moles/Vol] 139 mmol/L Normal 135-145 [facility] Internal Medicine Work Phone: Comment on above: PATIENT NOT FASTINGP ERFORMED BY: CB [facility] Idbwsz9811 [facility] [id number] Information: [id number] Urea nitrogen [Mass/Vol] 19 mg/dL Normal 5-26 [facility] Work Phone: Comment on above: PATIENT NOT FASTINGP ERFORMED BY: CB [facility] Qlaykz9837 [facility] [id number] Information: [id number] Urea nitrogen/Creatinin e [Mass ratio] 22 mg/mg Normal 8-27 [facility] Work Phone: Comment on above: PATIENT NOT FASTINGP ERFORMED BY: [facility] Pjpdrc2239 [facility] [id number] Information: [id number] Vital Signs Date Time Vital Sign Value Performing Clinician Facility 12-10-2024 09:02-0400 Body height 157.[address] Neeta Smart DO Work Phone: [facility] 12-10-2024 09:00-0400 Body mass index (BMI) [Ratio] 28.3 kg/m2 Dr. Neeta Smart DO Work Phone: [facility] 12-10-2024 09:00-0400 Body weight 70.[address] Neeta Smart DO Work Phone: [facility] 12-10-2024 09:00-0400 Diastolic blood pressure 84 mm[Hg] Dr. Neeta Smart DO Work Phone: [facility] 12-10-2024 09:00-0400 Systolic blood pressure 124 mm[Hg] Dr. Neeta Smart DO Work Phone: [facility] 10-24-2024 01:00-0400 Body height 160.02 cm Herminia Jessicamirnar [place] [facility] 10-24-2024 01:00-0400 Body mass index (BMI) [Ratio] 27.5 kg/m2 Herminia [place] [facility] 10-24-2024 01:00-0400 Body surface area Derived from formula 1.77 m2 [facility] [place] [facility]-24-2024 01:00-0400 Body weight 70.53 kg Herminia Hermiller [place] [facility] 10-24-2024 01:00-0400 Diastolic blood pressure 85 mm[Hg] Herminia Herm[place] [facility] 10-24-2024 01:00-0400 Heart rate 71 /min Herminia Hermiller [place] [facility] 10-24-2024 01:00-0400 Respiratory rate 16 /min Herminia Hermiller [place] [facility] 10-24-2024 01:00-0400 Systolic blood pressure 129 mm[Hg] Herminia Ruiz [place] [facility] 05-01-2023 13:15-0400 Body height 157.[address] Neeta Smart Work Phone: [facility] 05-01-2023 13:15-0400 Body mass index (BMI) [Ratio] 26.6 kg/m2 Dr. Neeta Smart Work Phone: [facility] 05-01-2023 13:15-0400 Body weight 65.[address] Neeta Smart Work Phone: [facility] 05-01-2023 13:15-0400 Diastolic blood pressure 80 mm[Hg] Dr. Neeta Smart Work Phone: [facility] 05-01-2023 13:15-0400 Systolic blood pressure 130 mm[Hg] Dr. Neeta Smart Work Phone: [facility] 01-23-2023 10:20-0400 Body height 160.02 cm [facility]; [facility] Work Phone: 01-23-2023 10:20-0400 Body mass index (BMI) [Ratio] 26.75 kg/m2 [facility]; [facility] Work Phone: 01-23-2023 10:20-0400 Body surface area Derived from formula 1.72 m2 [facility]; [facility] Work Phone: 01-23-2023 10:20-0400 Body temperature 97.1 [degF] [facility]; [facility] Work Phone: 01-23-2023 10:20-0400 Body weight 68.49 kg [facility]; [facility] Work Phone: 01-23-2023 10:20-0400 Diastolic blood pressure 60 mm[Hg] [facility]; [facility] Work Phone: Comment on above: Patient Position: Sitting; Cuff Location : Left Arm; Cuff Size: Standard 01-23-2023 10:20-0400 Heart rate 56 /min [facility]; [facility] Work Phone: Comment on above: Pattern: Regular 01-23-2023 10:20-0400 SaO2% (BldA) [Mass fraction] 99 % [facility]; [facility] Work Phone: Comment on above: Room air 01-23-2023 10:20-0400 Systolic blood pressure 132 mm[Hg] [facility]; [facility] Work Phone: Comment on above: Patient Position: Sitting; Cuff Location : Left Arm; Cuff Size: Standard 03-30-2022 15:57-0400 Body height 160.[address] [facility]; [facility] Work Phone: 03-30-2022 15:57-0400 Body mass index (BMI) [Ratio] 25.51 kg/m2 Trina Byrnes [facility]; [facility] Work Phone: 03-30-2022 15:57-0400 Body surface area Derived from formula 1.[address] [facility]; [facility] Work Phone: 03-30-2022 15:57-0400 Body temperature 97.3 [degF] Trina Byrnes [facility]; [facility] Work Phone: Comment on above: Method: Temporal 03-30-2022 15:57-0400 Body weight 65.[address] [facility]; [facility] Work Phone: 03-30-2022 15:57-0400 Diastolic blood pressure 60 mm[Hg] Trina Byrnes [facility]; [facility] Work Phone: Comment on above: Patient Position: Sitting; Cuff Location : Left Arm; Cuff Size: Standard 03-30-2022 15:57-0400 Heart rate 78 /min Trina Byrnes [facility]; [facility] Work Phone: Comment on above: Pattern: Regular 03-30-2022 15:57-0400 Respiratory rate 16 /min Trina Byrnes [facility]; [facility] Work Phone: Comment on above: Pattern: Unlabored 03-30-2022 15:57-0400 SaO2% (BldA) [Mass fraction] 98 % Trina Byrnes [facility]; [facility] Work Phone: Comment on above: Room air 03-30-2022 15:57-0400 Systolic blood pressure 110 mm[Hg] Trina Byrnes [facility]; [facility] Work Phone: Comment on above: Patient Position: Sitting; Cuff Location : Left Arm; Cuff Size: Standard 02-26-2022 08:02-0400 Body temperature 99.2 [degF] Dr. Neeta Smart Work Phone: [facility] Work Phone: 02-26-2022 08:02-0400 Diastolic blood pressure 62 mm[Hg] Dr. Neeta Smart Work Phone: [facility] Work Phone: 02-26-2022 08:02-0400 Heart rate 76 /min Dr. Neeta Smart Work Phone: [facility] Work Phone: 02-26-2022 08:02-0400 Respiratory rate 18 /min Dr. Neeta Smart Work Phone: [facility] Work Phone: 02-26-2022 08:02-0400 SaO2% (BldA) [Mass fraction] 100 % Dr. Neeta Smart Work Phone: [facility] Work Phone: 02-26-2022 08:02-0400 Systolic blood pressure 95 mm[Hg] Dr. Neeta Smart Work Phone: [facility] Work Phone: 02-25-2022 17:22-0400 Inhaled oxygen flow rate 2 L/min Dr. Neeta Smart Work Phone: [facility] Work Phone: 02-25-2022 08:04-0400 Body height 157.[address] Neeta Smart Work Phone: [facility] Work Phone: 02-25-2022 08:04-0400 Body mass index (BMI) [Ratio] 27.8 kg/m2 Dr. Neeta Smart Work Phone: [facility] Work Phone: 02-25-2022 08:04-0400 Body weight 68.[address] Neeta Smart Work Phone: [facility] Work Phone: 02-24-2022 15:20-0400 Body temperature 98.9 [degF] Dr. Neeta Smart Work Phone: [facility] Work Phone: 02-24-2022 15:20-0400 Diastolic blood pressure 67 mm[Hg] Dr. Neeta Smart Work Phone: [facility] Work Phone: 02-24-2022 15:20-0400 Heart rate 86 /min Dr. Neeta Smart Work Phone: [facility] Work Phone: 02-24-2022 15:20-0400 Respiratory rate 14 /min Dr. Neeta Smart Work Phone: [facility] Work Phone: 02-24-2022 15:20-0400 SaO2% (BldA) [Mass fraction] 100 % Dr. Neeta Smart Work Phone: [facility] Work Phone: 02-24-2022 15:20-0400 Systolic blood pressure 107 mm[Hg] Dr. Neeta Smart Work Phone: [facility] Work Phone: 02-24-2022 10:57-0400 Body height 157.[address] Neeta Smart Work Phone: [facility] Work Phone: 02-24-2022 10:57-0400 Body mass index (BMI) [Ratio] 27.8 kg/m2 Dr. Neeta Smart Work Phone: [facility] Work Phone: 02-24-2022 10:57-0400 Body weight 68.[address] Neeta Smart Work Phone: [facility] Work Phone: 02-24-2022 10:20-0400 Body temperature 98 [degF] Dr. Neeta Smart Work Phone: [facility] Work Phone: 02-24-2022 10:20-0400 Diastolic blood pressure 82 mm[Hg] Dr. Neeta Smart Work Phone: [facility] Work Phone: 02-24-2022 10:20-0400 Heart rate 67 /min Dr. Neeta Smart Work Phone: [facility] Work Phone: 02-24-2022 10:20-0400 Respiratory rate 11 /min Dr. Neeta Smart Work Phone: [facility] Work Phone: 02-24-2022 10:20-0400 SaO2% (BldA) [Mass fraction] 97 % Dr. Neeta Smart Work Phone: [facility] Work Phone: 02-24-2022 10:20-0400 Systolic blood pressure 141 mm[Hg] Dr. Neeta Smart Work Phone: [facility] [facility] Work Phone: 02-24-2022 07:08-0400 Body height 157.[address] Neeta Smart Work Phone: [facility] Work Phone: 02-24-2022 07:08-0400 Body mass index (BMI) [Ratio] 27.4 kg/m2 Dr. Neeta Smart Work Phone: [facility] Work Phone: 02-24-2022 07:08-0400 Body weight 68.[address] Neeta Smart Work Phone: [facility] Work Phone: 02-15-2022 14:19-0400 Body height 157.[address] Neeta Smart Work Phone: [facility] Work Phone: 01-26-2022 10:20-0400 Body height 157.[address] Neeta Smart Work Phone: [facility] Work Phone: 01-26-2022 10:20-0400 Body mass index (BMI) [Ratio] 27.6 kg/m2 Dr. Neeta Smart Work Phone: [facility] Work Phone: 01-26-2022 10:20-0400 Body weight 68.[address] Neeta Smart Work Phone: [facility] Work Phone: 01-26-2022 10:20-0400 Diastolic blood pressure 72 mm[Hg] Dr. Neeta Smart Work Phone: [facility] Work Phone: 01-26-2022 10:20-0400 Systolic blood pressure 118 mm[Hg] Dr. Neeta Smart Work Phone: [facility] Work Phone: 11-20-2020 12:02-0400 BMI (Body Mass Index) 27.99 kg/m2 Neeta Smart Compre[facility]; [facility] Work Phone: 11-20-2020 12:02-0400 BMI (Body Mass Index) 18.6 kg/m2 Luz Flores LPN Comprehen sive [facility]; [facility] Work Phone: 11-20-2020 12:02-040 Body Temperature 97.6 [degF] [facility]; [facility] Work Phone: Comment on above: Method: Thermal Scan 11-20-2020 12:02-0400 Body weight 71.69 kg Neeta Smart [facility]; [facility] Work Phone: 11-20-2020 12:020400 Body weight 47.63 kg [facility]; [facility] Work Phone: 11-20-2020 12:02-0400 BP Diastolic 72 mm[Hg] [facility]; [facility] Work Phone: Comment on above: Patient Position: Sitting; Cuff Location : Left Arm; Cuff Size: Standard 11-20-2020 12:02-0400 BP Systolic 118 mm[Hg] Luz [facility]; [facility] Work Phone: Comment on above: Patient Position: Sitting; Cuff Location : Left Arm; Cuff Size: Standard 11-20-2020 12:02-0400 BSA (Body Surface Area) 1.75 m2 Neeta Smart [facility]; [facility] Work Phone: 11-20-2020 12:02-0400 BSA (Body Surface Area) 1.47 m2 [facility]; [facility] Work Phone: 11-20-2020 12:02-0400 Height 160.02 cm Luz Flores [employer] [facility]; [facility] Work Phone: 11-20-2020 12:02-0400 Pulse (Heart Rate) 69 /min Luz Flores [employer] Comprehensiv e [facility]; [facility] Work Phone: Comment on above: Pattern: Regular 11-20-2020 12:02-0400 Pulse Oximetry 98 % Neeta Smart [facility]; [facility] Work Phone: Comment on above: Room air 11-20-2020 12:02-0400 Respiratory Rate 16 /min Luz Flores [facility]; [facility] Work Phone: Comment on above: Pattern: Unlabored 11-20-2020 12:02-0400 SaO2% (BldA) [Mass fraction] 98 % Luz Flores [facility]; [facility] Work Phone: Comment on above: Room air 03-18-2020 10:44-0400 BMI (Body Mass Index) 27.99 kg/m2 Luz Flores [facility] Comprehen sive Internal Medicine Work Phone: 03-18-2020 10:44-0400 Body weight 71.69 kg Luz Flores [facility] Work Phone: 03-18-2020 10:44-0400 BSA (Body Surface Area) 1.75 m2 Luz Mark [facility] Work Phone: 03-18-2020 10:44-0400 Height 160.02 cm Luz Flores [facility] Work Phone: 01-27-2020 14:26-0400 BMI (Body Mass Index) 27.99 kg/m2 Marquis Wills LPN Comprehen sive [facility] Work Phone: 01-27-2020 14:26-0400 Body Temperature 97.1 [degF] Marquis Wills [employer] [facility] Work Phone: Comment on above: Method: Temporal 01-27-2020 14:26-0400 Body weight 71.69 kg Marquis Wills LPN [facility] Work Phone: 01-27-2020 14:26-0400 BP Diastolic 72 mm[Hg] Marquis Wills LPN [facility] Work Phone: Comment on above: Patient Position: Sitting; Cuff Location : Left Arm; Cuff Size: Standard 01-27-2020 14:26-0400 BP Systolic 122 mm[Hg] Marquis Wills LPN [facility] Work Phone: Comment on above: Patient Position: Sitting; Cuff Location : Left Arm; Cuff Size: Standard 01-27-2020 14:26-0400 BSA (Body Surface Area) 1.75 m2 Marquis Wills LPN [facility] Work Phone: 01-27-2020 14:26-0400 Height 160.02 cm Marquis Wills LPN [facility] Work Phone: 01-27-2020 14:26-0400 Pulse (Heart Rate) 83 /min Marquis Wills LPN Comprehensiv e [facility] Medicine Work Phone: Comment on above: Pattern: Regular 01-27-2020 14:26-0400 Pulse Oximetry 99 % Neeta Bing [facility] Medicine Work Phone: Comment on above: Room air 01-27-2020 14:26-0400 Respiratory Rate 16 /min Marquis Wills LPN [facility] Work Phone: Comment on above: Pattern: Unlabored 01-27-2020 14:26-0400 SaO2% (BldA) [Mass fraction] 99 % Marquis Wills LPN [facility]; [facility] Work Phone: Comment on above: Room air 11-26-2019 09:01-0400 BMI (Body Mass Index) 28.08 kg/m2 Patricia Pickard [facility] Comprehen sive Internal Medicine Work Phone: 11-26-2019 09:01-0400 Body Temperature 98.9 [degF] Patricia Pickard LPN [facility] Work Phone: 11-26-2019 09:01-0400 Body weight 71.9 kg Patricia Pickard [facility] Work Phone: 11-26-2019 09:01-0400 BP Diastolic 70 mm[Hg] Patricia Slarb [employer] [facility] Work Phone: Comment on above: Patient Position: Sitting; Cuff Location : Left Arm; Cuff Size: Standard 11-26-2019 09:01-0400 BP Systolic 116 mm[Hg] Patricia Slarb [employer] [facility] Work Phone: Comment on above: Patient Position: Sitting; Cuff Location : Left Arm; Cuff Size: Standard 11-26-2019 09:01-0400 BSA (Body Surface Area) 1.75 m2 Patricia Slarb [employer] [facility] Work Phone: 11-26-2019 09:01-0400 Height 160.02 cm Patricia Slarb [employer] [facility] Work Phone: 11-26-2019 09:01-0400 Pulse (Heart Rate) 69 /min Patricia Slarb [employer] Comprehensiv e [facility] Medicine Work Phone: Comment on above: Pattern: Regular 11-26-2019 09:01-0400 Pulse Oximetry 98 % Neeta Gómezon [facility] Work Phone: Comment on above: Room air 11-26-2019 09:01-0400 Respiratory Rate 16 /min Patricia Slarb [employer] [facility] Work Phone: Comment on above: Pattern: Unlabored 11-26-2019 09:01-0400 SaO2% (BldA) [Mass fraction] 98 % Patricia Slarb [employer] [facility]; [facility] Work Phone: Comment on above: Room air 08-31-2015 13:52-0500 BMI (Body Mass Index) 26.75 kg/m2 Anila Choe [facility]hen [facility] Internal Medicine Work Phone: 08-31-2015 13:52-0500 Body Temperature 99.3 [degF] Anila Choe [facility] Work Phone: Comment on above: Method: Temporal 08-31-2015 13:52-0500 Body weight 68.49 kg Anila Choe [facility] Work Phone: 08-31-2015 13:52-0500 BP Diastolic 70 mm[Hg] Anila Southleatha [facility] Work Phone: Comment on above: Patient Position: Sitting; Cuff Location : Left Arm; Cuff Size: Standard 08-31-2015 13:52-0500 BP Systolic 110 mm[Hg] Anila Southleatha [facility] Work Phone: Comment on above: Patient Position: Sitting; Cuff Location : Left Arm; Cuff Size: Standard 08-31-2015 13:52-0500 BSA (Body Surface Area) 1.72 m2 Anila Daija [facility] Internal Medicine Work Phone: 08-31-2015 13:52-0500 Height 160.02 cm Anila Daija [facility] Work Phone: 08-31-2015 13:52-0500 Pulse (Heart Rate) 80 /min Anila Southleatha [facility] Internal Medicine Work Phone: Comment on above: Pattern: Regular 08-31-2015 13:52-0500 Pulse Oximetry 97 % Neeta Smart [facility] Internal Medicine Work Phone: Comment on above: Room air 08-31-2015 13:52-0500 Respiratory Rate 16 /min Anila Daija [facility] Work Phone: Comment on above: Pattern: Unlabored 08-31-2015 13:52-0500 SaO2% (BldA) [Mass fraction] 97 % Anila Choe [facility]; [facility] Work Phone: Comment on above: Room air 11-05-2014 08:16-0400 BMI (Body Mass Index) 24.45 kg/m2 Justina Stout LPN [facility] Work Phone: 11-05-2014 08:16-0400 Body Temperature 98.6 [degF] Justina Stout LPN [facility] Internal [facility] Work Phone: Comment on above: Method: Oral 11-05-2014 08:16-0400 Body weight 62.6 kg Justina Stout LPN [facility] Work Phone: 11-05-2014 08:16-0400 BP Diastolic 70 mm[Hg] Justina Stout LPN [facility] Work Phone: Comment on above: Patient Position: Sitting; Cuff Location : Left Arm; Cuff Size: Standard 11-05-2014 08:16-0400 BP Systolic 106 mm[Hg] Justina Stout LPN [facility] Work Phone: Comment on above: Patient Position: Sitting; Cuff Location : Left Arm; Cuff Size: Standard 11-05-2014 08:16-0400 BSA (Body Surface Area) 1.65 m2 Justina Stout LPN [facility] Work Phone: 11-05-2014 08:16-0400 Height 160.02 cm Justina Stout LPN [facility] Work Phone: 11-05-2014 08:16-0400 Pulse (Heart Rate) 70 /min Justina Stout LPN [facility] Work Phone: Comment on above: Pattern: Regular 11-05-2014 08:16-0400 Pulse Oximetry 99 % Neeta Bing [facility] Work Phone: Comment on above: Room air 11-05-2014 08:16-0400 Respiratory Rate 16 /min Justina Stout LPN [facility] Work Phone: 11-05-2014 08:16-0400 SaO2% (BldA) [Mass fraction] 99 % Justina Stout [employer] [facility]; [facility] Work Phone: Comment on above: Room air 12-23-2013 09:23-0400 BMI (Body Mass Index) 24.45 kg/m2 Anila Choe [facility] Internal Medicine Work Phone: 12-23-2013 09:23-0400 Body Temperature 97.6 [degF] Anila Choe [facility] Work Phone: 12-23-2013 09:23-0400 Body weight 62.6 kg Anila Choe [facility] Work Phone: 12-23-2013 09:23-0400 BP Diastolic 70 mm[Hg] Anila Daija [facility] Work Phone: Comment on above: Patient Position: Sitting; Cuff Location : Left Arm; Cuff Size: Large 12-23-2013 09:23-0400 BP Systolic 100 mm[Hg] Anila Daija [facility] Work Phone: Comment on above: Patient Position: Sitting; Cuff Location : Left Arm; Cuff Size: Large 12-23-2013 09:23-0400 BSA (Body Surface Area) 1.65 m2 Anila Daija [facility] Work Phone: 12-23-2013 09:23-0400 Height 160.02 cm Anila Daija [facility] Work Phone: 12-23-2013 09:23-0400 Pulse (Heart Rate) 80 /min [facility] Work Phone: Comment on above: Pattern: Regular 12-23-2013 09:23-0400 Respiratory Rate 16 /min Anila Daija [facility] Work Phone: Comment on above: Pattern: Unlabored 11-29-2013 07:30-0400 BMI (Body Mass Index) 24.45 kg/m2 Anila Daija Comprehen sive Internal Medicine Work Phone: 11-29-2013 07:30-0400 Body Temperature 98.4 [degF] Anila Choe [facility] Work Phone: 11-29-2013 07:30-0400 Body weight 62.6 kg Anila Daija [facility] Work Phone: 11-29-2013 07:30-0400 BP Diastolic 76 mm[Hg] Anila Daija [facility] Work Phone: Comment on above: Patient Position: Sitting; Cuff Location : Left Arm; Cuff Size: Large 11-29-2013 07:30-0400 BP Systolic 101 mm[Hg] Anila Choe [facility] Work Phone: Comment on above: Patient Position: Sitting; Cuff Location : Left Arm; Cuff Size: Large 11-29-2013 07:30-0400 BSA (Body Surface Area) 1.65 m2 Anila Choe [facility] Work Phone: 11-29-2013 07:30-0400 Height 160.02 cm Anila Choe [facility] Work Phone: 11-29-2013 07:30-0400 Pulse (Heart Rate) 88 /min [facility] Work Phone: Comment on above: Pattern: Regular 11-29-2013 07:30-0400 Respiratory Rate 16 /min Anila Choe [facility] Internal Medicine Work Phone: Comment on above: Pattern: Unlabored 10-07-2013 08:59-0500 BMI (Body Mass Index) 24.45 kg/m2 [facility] Work Phone: 10-07-2013 08:59-0500 Body Temperature 97.4 [degF] [facility] Work Phone: Comment on above: Method: Oral 10-07-2013 08:59-0500 Body weight 62.6 kg [place] Medicine Work Phone: 10-07-2013 08:59-0500 BP Diastolic 64 mm[Hg] [place]VA [facility] Medicine Work Phone: Comment on above: Patient Position: Sitting; Cuff Location : Left Arm; Cuff Size: Standard 10-07-2013 08:59-0500 BP Systolic 102 mm[Hg] [place]VA [facility] Internal Medicine Work Phone: Comment on above: Patient Position: Sitting; Cuff Location : Left Arm; Cuff Size: Standard 10-07-2013 08:59-0500 BSA (Body Surface Area) 1.65 m2 [place] [facility] Internal Medicine Work Phone: 10-07-2013 08:59-0500 Height 160.02 cm Albania Flores [facility] Internal Medicine Work Phone: 10-07-2013 08:59-0500 Pulse (Heart Rate) 75 /min Albania Flores [facility] Internal Medicine Work Phone: Comment on above: Pattern: Regular 10-07-2013 08:59-0500 Pulse Oximetry 99 % Neeta Smart [facility] Internal Medicine Work Phone: Comment on above: Room air 10-07-2013 08:59-0500 Respiratory Rate 18 /min Albania Flores [facility] Work Phone: Comment on above: Pattern: Unlabored 10-07-2013 08:59-0500 SaO2% (BldA) [Mass fraction] 99 % Albania Flores [facility]; [facility] Work Phone: Comment on above: Room air 03-22-2013 07:38-0400 BMI (Body Mass Index) 24.45 kg/m2 Justina Stout LPN [facility] Medicine Work Phone: 03-22-2013 07:38-0400 Body Temperature 98.5 [degF] Justina Stout [employer] [facility] Work Phone: Comment on above: Method: Oral 03-22-2013 07:38-0400 Body weight 62.6 kg Justina Stout LPN [facility] Work Phone: 03-22-2013 07:38-0400 BP Diastolic 84 mm[Hg] Justina Stout [employer] [facility] Work Phone: Comment on above: Patient Position: Sitting; Cuff Location : Left Arm; Cuff Size: Standard 03-22-2013 07:38-0400 BP Systolic 138 mm[Hg] Justina Stout LPN [facility] Internal Medicine Work Phone: Comment on above: Patient Position: Sitting; Cuff Location : Left Arm; Cuff Size: Standard 03-22-2013 07:38-0400 BSA (Body Surface Area) 1.65 m2 Justina Stout LPN [facility] Work Phone: 03-22-2013 07:38-0400 Height 160.02 cm Justina Stout [facility] Internal Medicine Work Phone: 03-22-2013 07:38-0400 Pulse (Heart Rate) 98 /min Justina Stout [facility] Internal Medicine Work Phone: Comment on above: Pattern: Regular 03-22-2013 07:38-0400 Pulse Oximetry 96 % Neeta Smart [facility] Medicine Work Phone: Comment on above: Room air 03-22-2013 07:38-0400 Respiratory Rate 18 /min Justina Stout [facility] Internal Medicine Work Phone: 03-22-2013 07:38-0400 SaO2% (BldA) [Mass fraction] 96 % Justina Stout [employer] [facility]; [facility] Work Phone: Comment on above: Room air 12-04-2012 15:23-0400 BMI (Body Mass Index) 24.45 kg/m2 Anila Choe [facility] Internal Medicine Work Phone: 12-04-2012 15:23-0400 Body Temperature 97.9 [degF] Anila Choe [facility] Internal Medicine Work Phone: 12-04-2012 15:23-0400 Body weight 62.6 kg Anila Choe [facility] Work Phone: 12-04-2012 15:23-0400 BP Diastolic 74 mm[Hg] Anila Choe [facility] Internal Medicine Work Phone: Comment on above: Patient Position: Sitting; Cuff Location : Left Arm; Cuff Size: Large 12-04-2012 15:23-0400 BP Systolic 102 mm[Hg] Anila Choe [facility] Work Phone: Comment on above: Patient Position: Sitting; Cuff Location : Left Arm; Cuff Size: Large 12-04-2012 15:23-0400 BSA (Body Surface Area) 1.65 m2 Anila Choe [facility] Internal Medicine Work Phone: 12-04-2012 15:23-0400 Height 160.02 cm Anila Choe [facility] Medicine Work Phone: 12-04-2012 15:23-0400 Pulse (Heart Rate) 68 /min Anila Choe [facility] Internal Medicine Work Phone: Comment on above: Pattern: Regular 12-04-2012 15:23-0400 Respiratory Rate 16 /min Anila Choe [facility] Work Phone: Comment on above: Pattern: Unlabored 10-06-2010 11:53-0500 BMI (Body Mass Index) 24.27 kg/m2 Anila Choe Comprehen sive Internal Medicine Work Phone: 10-06-2010 11:53-0500 Body Temperature 97.7 [degF] Anila Choe [facility] Work Phone: 10-06-2010 11:53-0500 Body weight 62.14 kg Anila Choe [facility] Work Phone: 10-06-2010 11:53-0500 BP Diastolic 80 mm[Hg] Anila Choe [facility] Internal Medicine Work Phone: Comment on above: Patient Position: Sitting; Cuff Location : Left Arm; Cuff Size: Standard 10-06-2010 11:53-0500 BP Systolic 100 mm[Hg] Anila Choe [facility] Internal Medicine Work Phone: Comment on above: Patient Position: Sitting; Cuff Location : Left Arm; Cuff Size: Standard 10-06-2010 11:53-0500 BSA (Body Surface Area) 1.65 m2 Anila Choe [facility] Internal Medicine Work Phone: 10-06-2010 11:53-0500 Height 160.02 cm Anila Choe [facility] Work Phone: 10-06-2010 11:53-0500 Pulse (Heart Rate) 76 /min Anila Choe Comprehensiv e Internal Medicine Work Phone: Comment on above: Pattern: Regular 10-06-2010 11:53-0500 Respiratory Rate 16 /min Anila Choe [facility] Internal Medicine Work Phone: Comment on above: Pattern: Unlabored 08-30-2010 12:36-0500 Body Temperature 98.1 [degF] Anila Choe [facility] Medicine Work Phone: 08-30-2010 12:36-0500 BP Diastolic 80 mm[Hg] Anila Choe [facility] Internal Medicine Work Phone: Comment on above: Patient Position: Sitting; Cuff Location : Left Arm; Cuff Size: Large 08-30-2010 12:36-0500 BP Systolic 116 mm[Hg] Anila Choe [facility] Internal Medicine Work Phone: Comment on above: Patient Position: Sitting; Cuff Location : Left Arm; Cuff Size: Large 08-30-2010 12:36-0500 Pulse (Heart Rate) 72 /min Anila Choe Comprehensiv e Internal Medicine Work Phone: Comment on above: Pattern: Regular 08-30-2010 12:36-0500 Respiratory Rate 16 /min [facility] Work Phone: Comment on above: Pattern: Unlabored 02-19-2010 12:35-0400 BP Diastolic 76 mm[Hg] [facility] Work Phone: Comment on above: Patient Position: Sitting; Cuff Location : Left Arm; Cuff Size: Standard 02-19-2010 12:35-0400 BP Systolic 102 mm[Hg] Anila Choe [facility] Internal Medicine Work Phone: Comment on above: Patient Position: Sitting; Cuff Location : Left Arm; Cuff Size: Standard 02-19-2010 12:35-0400 Pulse (Heart Rate) 80 /min Anila Choe [facility]prehens[facility] Internal Medicine Work Phone: Comment on above: Pattern: Regular 02-19-2010 12:35-0400 Respiratory Rate 18 /min [facility] Work Phone: Comment on above: Pattern: Unlabored 01-18-2010 08:04-0400 Body Temperature 97.7 [degF] Justina Stout LPN [facility] Internal Medicine Work Phone: Comment on above: Method: Oral 01-18-2010 08:04-0400 Body weight 68.49 kg Justina Stout [facility] Internal Medicine Work Phone: 01-18-2010 08:04-0400 BP Diastolic 70 mm[Hg] Justina Stout [facility] Internal Medicine Work Phone: Comment on above: Patient Position: Sitting; Cuff Location : Left Arm; Cuff Size: Standard 01-18-2010 08:04-0400 BP Systolic 110 mm[Hg] Justina Stout [facility] Internal Medicine Work Phone: Comment on above: Patient Position: Sitting; Cuff Location : Left Arm; Cuff Size: Standard 01-18-2010 08:04-0400 Pulse (Heart Rate) 82 /min Justina Stout [facility] Internal Medicine Work Phone: Comment on above: Pattern: Regular 01-18-2010 08:04-0400 Respiratory Rate 16 /min Justina Stout [facility] Internal Medicine Work Phone: Comment on above: Pattern: Unlabored 10-02-2009 09:20-0500 Body Temperature 97.8 [degF] Anila Choe [facility] Work Phone: 10-02-2009 09:20-0500 Body weight 68.49 kg Anila Choe [facility] Work Phone: 10-02-2009 09:20-0500 BP Diastolic 64 mm[Hg] Anila Choe [facility] Work Phone: Comment on above: Patient Position: Sitting; Cuff Location : Left Arm; Cuff Size: Large 10-02-2009 09:20-0500 BP Systolic 94 mm[Hg] Anila Choe [facility] Work Phone: Comment on above: Patient Position: Sitting; Cuff Location : Left Arm; Cuff Size: Large 10-02-2009 09:20-0500 Pulse (Heart Rate) 78 /min Anila Choe [facility] Work Phone: Comment on above: Pattern: Regular 10-02-2009 09:20-0500 Respiratory Rate 18 /min Anila Daija [facility] Work Phone: Comment on above: Pattern: Unlabored 06-09-2008 09:24-0500 BMI (Body Mass Index) 28.44 kg/m2 Justina Stout LPN [facility] Work Phone: 06-09-2008 09:24-0500 Body Temperature 97.6 [degF] Justina Stout [employer] [facility] Work Phone: Comment on above: Method: Oral 06-09-2008 09:24-0500 Body weight 70.53 kg Justina Stout LPN [facility] Work Phone: 06-09-2008 09:24-0500 BP Diastolic 70 mm[Hg] Justina Stout [employer] [facility] Work Phone: Comment on above: Patient Position: Sitting; Cuff Location : Left Arm; Cuff Size: Standard 06-09-2008 09:24-0500 BP Systolic 118 mm[Hg] Justina Stout LPN [facility] Work Phone: Comment on above: Patient Position: Sitting; Cuff Location : Left Arm; Cuff Size: Standard 06-09-2008 09:24-0500 BSA (Body Surface Area) 1.72 m2 Justina Stout [employer] [facility] Work Phone: 06-09-2008 09:24-0500 Head Circumference 0 cm Neeta Smart [facility] Work Phone: 06-09-2008 09:24-0500 Head Occipital-frontal circumference 0 cm Justina Stout [employer] [facility]; [facility] Work Phone: 06-09-2008 09:24-0500 Height 157.48 cm Justina Stout [employer] [facility] Work Phone: 06-09-2008 09:24-0500 Pulse (Heart Rate) 66 /min Justina Stout [employer] [facility] Work Phone: Comment on above: Pattern: Regular 06-09-2008 09:24-0500 Respiratory Rate 16 /min Justina Stout CHEN [facility] Work Phone: Comment on above: Pattern: Unlabored 05-30-2008 07:57-0400 BMI (Body Mass Index) 28.44 kg/m2 Carmen Maldonado RN [facility] Work Phone: 05-30-2008 07:57-0400 Body weight 70.53 kg Carmen Maldonado RN [facility] Work Phone: 05-30-2008 07:57-0400 BP Diastolic 70 mm[Hg] Carmen Maldonado RN [facility] Work Phone: Comment on above: Patient Position: Sitting; Cuff Location : Left Arm; Cuff Size: Standard 05-30-2008 07:57-0400 BP Systolic 122 mm[Hg] Carmen Maldonado RN [facility] Work Phone: Comment on above: Patient Position: Sitting; Cuff Location : Left Arm; Cuff Size: Standard 05-30-2008 07:57-0400 BSA (Body Surface Area) 1.72 m2 Carmen Maldonado RN [facility] Work Phone: 05-30-2008 07:57-0400 Head Circumference 0 cm Neeta Smart [facility] Work Phone: 05-30-2008 07:57-0400 Head Occipital-frontal circumference 0 cm Carmen Maldonado RN [facility]; [facility] Work Phone: 05-30-2008 07:57-0400 Height 157.48 cm Carmen Maldonado RN [facility] Work Phone: 05-30-2008 07:57-0400 Pulse (Heart Rate) 60 /min Carmen Maldonado RN [facility] Work Phone: Comment on above: Pattern: Regular 05-30-2008 07:57-0400 Respiratory Rate 16 /min Carmen Maldonado RN [facility] Work Phone: Comment on above: Pattern: Unlabored 11-09-2007 08:59-0400 Body Temperature 98.8 [degF] Anila Choe [facility] Work Phone: Comment on above: Method: Undefined 11-09-2007 08:59-0400 Body weight 0 kg Anila Choe [facility] Work Phone: 11-09-2007 08:59-0400 BP Diastolic 78 mm[Hg] Anila Choe [facility] Work Phone: Comment on above: Patient Position: Sitting; Cuff Location : Right Arm; Cuff Size: Standard 11-09-2007 08:59-0400 BP Systolic 112 mm[Hg] Anila Choe [facility] Work Phone: Comment on above: Patient Position: Sitting; Cuff Location : Right Arm; Cuff Size: Standard 11-09-2007 08:59-0400 Head Circumference 0 cm Neeta Smart [facility] Work Phone: 11-09-2007 08:59-0400 Head Occipital-frontal circumference 0 cm Anila Choe [facility]; [facility] Work Phone: 11-09-2007 08:59-0400 Height 0 cm Anila Choe [facility] Work Phone: 11-09-2007 08:59-0400 Pulse (Heart Rate) 72 /min Anila Choe [facility] Work Phone: Comment on above: Pattern: Regular 11-09-2007 08:59-0400 Respiratory Rate 16 /min Anila Choe [facility] Work Phone: Comment on above: Pattern: Undefined 04-25-2007 14:40-0400 Body Temperature 98.6 [degF] Anila Choe [facility] Work Phone: Comment on above: Method: Oral 04-25-2007 14:40-0400 Body weight 0 kg Anila Choe [facility] Work Phone: 04-25-2007 14:40-0400 BP Diastolic 70 mm[Hg] Anila Choe [facility] Work Phone: Comment on above: Patient Position: Sitting; Cuff Location : Left Arm; Cuff Size: Standard 04-25-2007 14:40-0400 BP Systolic 102 mm[Hg] Anila Southleatha [facility] Work Phone: Comment on above: Patient Position: Sitting; Cuff Location : Left Arm; Cuff Size: Standard 04-25-2007 14:40-0400 Head Circumference 0 cm Neeta Smart [facility] Work Phone: 04-25-2007 14:40-0400 Head Occipital-frontal circumference 0 cm Anila Choe [facility]; [facility] Work Phone: 04-25-2007 14:40-0400 Height 0 cm Anila Daija [facility] Work Phone: 04-25-2007 14:40-0400 Pulse (Heart Rate) 80 /min [facility] Work Phone: Comment on above: Pattern: Regular 09-27-2006 09:13-0500 Body Temperature 98.6 [degF] Neeta Smart [facility] Work Phone: Comment on above: Method: Undefined 09-27-2006 09:13-0500 Body weight 0 kg Neeta Smart [facility] Work Phone: 09-27-2006 09:13-0500 BP Diastolic 70 mm[Hg] Neeta Smart [facility] Work Phone: Comment on above: Patient Position: Undefined; Cuff Locati on: Undefined; Cuff Size: Undefined 09-27-2006 09:13-0500 BP Systolic 130 mm[Hg] Neeta Smart [facility] Work Phone: Comment on above: Patient Position: Undefined; Cuff Locati on: Undefined; Cuff Size: Undefined 09-27-2006 09:13-0500 Head Circumference 0 [facility] Work Phone: 09-27-2006 09:13-0500 Head Occipital-frontal circumference 0 cm Neeta Smart Work Phone: [facility]; [facility] Work Phone: 09-27-2006 09:13-0500 Height 0 cm Neeta Smart [facility] Work Phone: 09-27-2006 09:13-0500 Pulse (Heart Rate) 72 /min Neeta Smart [facility] Work Phone: Comment on above: Pattern: Regular 09-27-2006 09:13-0500 Respiratory Rate 16 /min Neeta Smart [facility] Work Phone: Comment on above: Pattern: Undefined 09-18-2006 12:40-0500 Body Temperature 98.3 [degF] Anila Daija [facility] Work Phone: Comment on above: Method: Oral 09-18-2006 12:40-0500 Body weight 0 kg Anila Choe [facility] Work Phone: 09-18-2006 12:40-0500 BP Diastolic 76 mm[Hg] Anila Choe [facility] Work Phone: Comment on above: Patient Position: Sitting; Cuff Location : Left Arm; Cuff Size: Standard 09-18-2006 12:40-0500 BP Systolic 108 mm[Hg] Anila Choe [facility] Work Phone: Comment on above: Patient Position: Sitting; Cuff Location : Left Arm; Cuff Size: Standard 09-18-2006 12:40-0500 Head Circumference 0 cm Neeta Smart [facility] Work Phone: 09-18-2006 12:40-0500 Head Occipital-frontal circumference 0 cm Anila Choe [facility]; [facility] Work Phone: 09-18-2006 12:40-0500 Height 0 cm Anila Choe [facility] Work Phone: 09-18-2006 12:40-0500 Pulse (Heart Rate) 68 /min Anila Choe [facility] Work Phone: Comment on above: Pattern: Regular Encounters Encounter Date Encounter Type Care Provider Facility Start: 03-14-2025 ambulatory Neeta Smart [facility]ilit [facility] Start: 01-15-2025 ambulatory Bre Moffett Facility:[facility] Start: 01-15-2025 Non-patient / Non-visit Dr. Zach Mcleod MD -[facility]- Start: 01-15-2025 End: 01-15-[address] Neeta Smart DO Work Phone: [facility] Work Phone: Start: 01-15-2025 End: 01-15-[address] Bre Moffett DPM -Pulmonary Services/Neurology Work Phone: Start: 01-15-2025 End: 01-15-2025 ambulatory Bre Moffett Facility:[facility] Start: 12-10-2024 End: 12-10-[address] Anila Rodriguez DO -[facility] Work Phone: Start: 12-10-2024 End: 12-10-2024 ambulatory Neeta Smart Facility:[facility] Start: 10-24-2024 Herminia keith [place] [facility] Start: 08-16-2024 End: 08-16-2024 ambulatory Anila Rodriguez Facility:[facility] Start: 07-18-2024 End: 07-18-2024 ambulatory Neeta Smart Facility:[facility] Start: 07-15-2024 ambulatory Neeta Smart Facilit y:[facility] Start: 06-06-2024 End: 06-06-2024 ambulatory Neetanoel Smart Facility:[facility] Start: 05-06-2024 End: 05-06-2024 ambulatory Neeta Smart Facility:[facility] Start: 08-14-2023 End: 08-14-[address] Neeta Smart Work Phone: [facility] Work Phone: Start: 08-14-2023 End: 08-14-[address] Neeta Smart Work Phone: [facility]-Outpatient Breast Imaging Work Phone: Start: 07-07-2023 End: 07-07-2023 ambulatory [facility] Ambulatory Start: 05-01-2023 End: 05-01-[address] Neeta Smart Work Phone: [facility] Work Phone: Start: 02-03-2023 End: 02-03-2023 ambulatory [facility] Work Phone: Start: 02-03-2023 End: 02-03-2023 Patient encounter procedure [facility] Work Phone: Start: 01-23-2023 End: 01-23-2023 Office outpatient visit 15 minutes Neeta Smart DO Work Phone: [facility] Start: 12-30-2022 ambulatory MsZhane Dodge Luis E Reij acility:[id number] Start: 11-03-2022 ambulatory MsZhane Dodge Luis E Mendoza acility:[id number] Start: 10-19-2022 ambulatory Ms. Arvind Augustno Facility:[id number] Start: 09-02-2022 ambulatory MsZhane Dodge Luis E Mendoza acility:[id number] Start: 06-23-2022 ambulatory Ms. Natalie Dodge Luis E Reji acility:[id number] Start: 03-30-2022 End: 03-30-2022 Office outpatient visit 15 minutes Neeta Smart DO Work Phone: [facility] Start: 02-26-2022 Non-patient / Non-visit Dr. Neeta Smart Work Phone: [facility] Start: 02-25-2022 Non-patient / Non-visit Dr. Neeta Smart Work Phone: [facility] Start: 02-24-2022 End: 02-26-2022 Evaluation and management of inpatient Dr. Neeta Smart Work Phone: [facility]-Medical Surgical 3 Start: 02-24-2022 Non-patient / Non-visit Dr. Neeta Smart Work Phone: [facility] Start: 02-24-2022 Evaluation and management of inpatient Dr. Neeta Smart Work Phone: [facility]-Medical Surgical 3 Start: 02-21-2022 End: 02-21-[address] Neeta Smart Work Phone: [facility]-MRI - [facility] Start: 02-15-2022 End: 02-15-[address] Neeta Smart Work Phone: [facility]-Laboratory, Specimen Start: 02-15-2022 End: 02-15-[address] Neeta Smart Work Phone: [facility] Start: 02-08-2022 End: 02-08-[address] Neeta Smart Work Phone: [facility] [place] Start: 01-26-2022 End: 01-26-[address] Neeta Smart Work Phone: [facility]-Laboratory, Specimen Start: 01-26-2022 End: 01-26-[address] Neeta Smart Work Phone: [facility] Start: 11-20-2020 End: 11-20-2020 Office outpatient visit 10 minutes Neeta Smart [facility] Start: 11-20-2020 Review Neeta Smart Compreh ensive Internal Medicine Start: 03-18-2020 End: 03-18-2020 Office outpatient visit 10 minutes Neeta Smart [facility] Start: 03-18-2020 Review Neeta Smart Compreh ensive [facility] Start: 01-27-2020 End: 01-27-2020 Office outpatient visit 15 minutes Neeta Nguyen [facility] Start: 11-26-2019 End: 11-26-2019 Office outpatient new 30 minutes Neeta Nguyen [facility] Start: 04-11-2018 End: 04-11-2018 Patient encounter ARINA NIDIA [facility] Start: 08-31-2015 End: 08-31-2015 Office outpatient visit 15 minutes Neeta Nguyen [facility] Start: 11-05-2014 End: 11-05-2014 Office outpatient visit 15 minutes Neeta Nguyen [facility] Start: 12-23-2013 End: 12-23-2013 Patient encounter procedure Neeta Nguyen [facility] Start: 12-09-2013 End: 12-09-2013 Phone Encounter Neeta Nguyen [employer] Medicine Start: 11-29-2013 End: 12-01-2013 Patient encounter procedure Neeta Nguyen [facility] Start: 10-07-2013 End: 10-07-2013 Patient encounter procedure Neeta Nguyen [facility] Start: 04-01-2013 End: 04-01-2013 Phone Encounter Neeta Nguyen [employer] al Medicine Start: 03-22-2013 End: 03-25-2013 Patient encounter procedure Neeta Nguyen [facility] Start: 12-07-2012 End: 12-07-2012 Annotation/Addendum Neeta Smart [facility] [employer] Aud[employer] al Medicine Start: 12-04-2012 End: 12-04-2012 Patient encounter procedure Neeta Nguyen [facility] Start: 10-06-2010 End: 10-06-2010 Patient encounter procedure Neeta Nguyen [facility] Start: 08-30-2010 End: 08-30-2010 Patient encounter procedure Neeta Nguyen [facility] Start: 02-19-2010 End: 02-22-2010 Patient encounter procedure Neeta Nguyen [facility] Start: 01-18-2010 End: 01-18-2010 Patient encounter procedure Neeta Nguyen [facility] Start: 10-02-2009 End: 10-02-2009 Patient encounter procedure Neeta Nguyen [facility] Start: 06-09-2008 End: 06-09-2008 Patient encounter procedure Neeta Nguyen [facility] Start: 05-30-2008 End: 05-30-2008 Office outpatient visit 25 minutes Neeta Nguyen [facility] Start: 11-09-2007 End: 11-09-2007 Patient encounter procedure Neeta Nguyen [facility] Start: 04-25-2007 End: 04-25-2007 Patient encounter procedure Neeta Smart [facility] Start: 09-27-2006 End: 09-27-2006 Patient encounter procedure Neeta Bing [facility] Start: 09-21-2006 End: 09-21-2006 Historical Summary Neeta Bing Nguyen [employer] al Medicine Start: 09-18-2006 End: 09-18-2006 Patient encounter procedure Neeta Bing [facility] Procedures Date Procedure Procedure Detail Performing Clinician Start: 08-14-[address] Neeta Smart Work Phone: Start: 08-14-[address] Neeta Smart Work Phone: Start: 02-03-2023 Ultrasonography of abdomen Start: 04-07-2022 End: 04-07-2022 Radar Systems Engineer Office Visit Report Procedure Note: See Note; NOTES: [facility] [address] [place] [address] OFFICE VISIT Date of Service: 04/07/22 MR#: [id number] Acct: [id number] Name: ELVIA GALAVIZ Rep #: [id number] 3 : 1970 Provider: Dr. Anila Diggs DO Age/Sex: 51/F Location[place] [facility] Status: Signed Intake Vital Signs 04/07/22 09:49 04/07/22 09:49 Height 5 ft 2 in 5 ft 2 in Weight: 144 lb 4 oz BMI 26.4 BP 146/82 H Intake Visit Reasons: 6 WK POST OP Lathe Mechanic Required: No Is patient in pain?: No Allergies No Known Allergies Allergy (Verified 04/07/22 09:49) Is last menstrual period known: No Post menopausal: No Patient : No : No PFSH Surgical History Hx of tubal ligation Status post hysterectomy Social History household members: spouse current occupational status: employed current occupation: [employer] history of recent travel: No Smoking Status: Never smoker alcohol intake: current alcohol intake frequency: a few times a week Alcohol type: wine substance use type: does not use diet: other what type of physical activity do you participate in: yoga frequency: 1-2 times per week seatbelt use: always do you feel safe at home: Yes additional social history: - Vasquez HPI 6 WK POST OP Details: ELVIA GALAVIZ is a 51 year old who presents for post op TRH visit. She still has some pressure and tenderness over her lower abdomen, but only hurts with tight fitting clothing. She denies vaginal bleeding. History 3 Elective abortions Hx Para 3 Spontaneous abortions Hx # Term Pregnancies Ectopic pregnancies Hx # Pregnancies Multiple births # of living children 3 Past Pregnancies Del. Date Name GA/Weeks Outcome Route Bth Weight Infant Gen Labor Lgth Anesthesia Del Locatn Provider FOB Unknown Misael 1989 Unknown Mala 1989 Unknown Reyna 1994 ROS ENT ENT: Reports system reviewed and no additional complaints, except as documented Cardio Card: Reports system reviewed and no additional complaints, except as documented Resp Resp: Denies cough, dyspnea or dyspnea on exertion GI GI: Denies abdominal pain, bloating or change in bowel habits : Denies vaginal odor or vaginal pruritus Details: lochia is mild Musc Musc: Reports system reviewed and no additional complaints, except as documented Exam Const General: cooperative, healthy appearing and comfortable Resp Effort Inspection: normal respiratory effort GI Palpation: soft and nontender Rectal Exam: other Other: cuff is intact and suture is dissolving. no bleeding or signs of infection Extrem General: no edema Coding Level of Care Code No Charge Diagnoses Status post hysterectomy Z90.710 Assessment and Plan Assessment and Plan (1) Status post hysterectomy: Status: Acute Comment: total robotic for 700gram uterus, ureteral catheter used during surgery. - 02/25/22- JV Plan: doing very well. recommend estrogen vaginal cream and no sex for 2 more weeks. HRT discussed. pt will call back if decides to proceed. 04/07/22 1018 <Electronically signed by Anila Rodriguez DO> Date Anila Rodriguez DO Cosigner Signature: Date (if applicable) CC: Neeta Smart Work Phone: Start: 03-10-2022 End: 03-10-2022 Radar Systems Engineer Office Visit Report Procedure Note: See Note; NOTES: [facility] [address] [place] [address] OFFICE VISIT Date of Service: 03/10/22 MR#: [id number] Acct: [id number] Name: ELVIA GALAVIZ Rep #: [id number] : 1970 Provider: Dr. Anila Diggs DO Age/Sex: 51/F Location: [facility] [place] Status: Signed Intake Vital Signs 02/25/22 08:04 03/10/22 11:17 03/10/22 11:20 Height 5 ft 2 in 5 ft 2 in 5 ft 2 in Weight: 144 lb BMI 26.3 BP 110/64 Intake Visit Reasons: 2 WK POST OP Chief Complaint: 2w incision check Is patient in pain?: No Allergies No Known Allergies Allergy (Verified 03/10/22 11:16) Medications multivitamin 1 tab PO DAILY SUPPLEMENT 03/24/21 [History Confirmed 03/10/22] docusate sodium 100 mg capsule (Colace) 100 mg PO DAILY 14 days #14 caps 02/25/22 [Rx Confirmed 03/10/22] ondansetron 4 mg disintegrating tablet 4 mg PO Q8H PRN nausea and vomiting #30 tabs 02/25/22 [Rx Confirmed 03/10/22] Post menopausal: Yes PFSH Surgical History (Updated 03/10/22 @ 12:[address] Anila Rodriguez DO) Hx of tubal ligation Status post hysterectomy Social History household members: spouse current occupational status: employed current occupation: [employer] history of recent travel: No Smoking Status: Never smoker alcohol intake: current alcohol intake frequency: a few times a week Alcohol type: wine substance use type: does not use diet: other what type of physical activity do you participate in: yoga frequency: 1-2 times per week seatbelt use: always do you feel safe at home: Yes additional social history: - Vasquez HPI 2 WK POST OP Details: ELVIA GALAVIZ is a 51 year old who presents for 2 week post op visit. she complains of constipation. Pain is well controlled and she wants to go back to work next week. Pregancy History 3 Elective abortions Hx Para 3 Spontaneous abortions Hx # Term Pregnancies Ectopic pregnancies Hx # Pregnancies Multiple births # of living children 3 Past Pregnancies Del. Date Name GA/Weeks Outcome Route Bth Weight Gen Labor Lgth Anesthesia Del Locatn Provider FOB Unknown Misael 1989 Unknown Mala 1989 Unknown Reyna 1994 ROS ENT ENT: Reports system reviewed and no additional complaints, except as documented Cardio Card: Reports system reviewed and no additional complaints, except as documented Resp Resp: Denies cough, dyspnea or dyspnea on exertion GI GI: Denies abdominal pain, bloating or change in bowel habits : Denies vaginal odor or vaginal pruritus Details: lochia is mild Musc Musc: Reports system reviewed and no additional complaints, except as documented Exam Const General: cooperative, healthy appearing and comfortable Resp Effort Inspection: normal respiratory effort GI Palpation: soft and nontender Rectal Exam: other Other: incision is clean, dry, intact Other: exam deferred today Extrem General: no edema Coding Level of Care Code No Charge Diagnoses Pelvic pain R10.2 Intramural uterine fibroid D25.1 Status post hysterectomy Z90.710 Assessment and Plan Assessment and Plan (1) Pelvic pain: Status: Acute (2) Intramural uterine fibroid: Status: Acute (3) Status post hysterectomy: Status: Acute Comment: total robotic for 700gram uterus, ureteral catheter used during surgery. - 02/25/22- JV Plan: ok to return to work next week but restrictions discussed. return in 4 weeks pathology results reviewed. 03/10/22 1254 <Electronically signed by Anila Rodriguez DO> Date Anila Rodriguez DO Cosigner Signature: Date (if applicable) CC: Neeta Smart DO Work Phone: Start: 02-25-2022 Computed tomography of abdomen and pelvis with intravenous contrast Dr. Neeta Smart Work Phone: Start: 02-25-[address] Neeta Smart Work Phone: Start: 02-24-2022 End: 02-24-2022 Emergency Department Summary Comments: See Note; NOTES: [facility] Medical Records Department [address] [place] [address] Emergency Department Summary 02/24/22 MR#: [id number] Acct: [id number] Name: ELVIA GALAVIZ Rep #: [id number] : 1970 51 From: Fortino Avendano MD PCP: Dr. Neeta Smart, Status:REG ER Location: ED HPI HPI - Female History of Present Illness Chief Complaint: Vag Bleeding Detail of Chief Complaint: Vaginal bleeding for approximately 4 months Informant: patient, spouse/S.O. and other (Review of prior records and images) Pain Pain: Positive for Pelvic Pain Onset: Days Context: Gradual Onset (Pain has gotten significantly worse since Monday.) Timing: Continuous and Waxes and wanes Quality: Positive for Cramping (Compares to significant labor pain) Location: Suprapubic and Back Current Severity: Severe Maximum Severity: Severe Worsened by: - (Nothing specific) Relieved by: Remaining Still (Nothing) Bleeding Issue: Positive for Vaginal bleeding and Passing clots; Negative for Passing tissue Onset: Days and Weeks Context: Sudden Onset Timing: Continuous and Waxes and wanes Current Severity: Heavy Current pads/hr: 13 Maximum Severity: Heavy Associated Symptoms Associated Symptoms: Positive for Irregular Period; Negative for Dysuria, Frequency, Urgency, Hematuria or Missed Period Test: Negative Sexually: Positive for Active Narrative Narrative: Patient is a 53-year-old woman who is under the care of Dr. Bates who presents because of severe pain. She had an appointment to see Dr. Brenda Bates this morning however states the pain was unbearable. She states she is gone through 13 pads with passage of clots. She denies orthostatic symptoms. She denies urologic symptoms. She has not on anticoagulant. She informed that she had ultrasound which revealed a mass. She was informed that the MRI revealed that the mass is a fibroid. She denies bruising easily. She denies any other symptoms. Prior similar symptoms: Yes Recent Illness/Hospitalization: Yes PFSH PFSH Home Medications multivitamin 1 tab PO DAILY 03/24/21 [History Last Taken Unknown] psyllium husk 0.4 gram capsule (Daily Fiber) 0.4 g PO DAILY 03/24/21 [History Last Taken Unknown] megestrol 40 mg tablet 40 mg PO BID #60 tabs 01/27/22 [Rx Last Taken Unknown] Allergy/AdvReac Type Severity Reaction Status Date / Time No Known Allergies Allergy Verified 02/24/22 07:10 Surgical History Hx of tubal ligation Social History household members: spouse current occupational status: employed current occupation: [employer] history of recent travel: No Smoking Status: Never smoker alcohol intake: current alcohol intake frequency: a few times a week Alcohol type: wine substance use type: does not use diet: other what type of physical activity do you participate in: yoga frequency: 1-2 times per week seatbelt use: always do you feel safe at home: Yes additional social history: - Vasquez JOSE DAMON ED Constitutional Constitutional ED: Denies chills, fever(s), subjective or sweats Eyes Eyes: Denies blurry vision, change in vision or diplopia ENT ENT ED: Denies ear pain, rhinorrhea or sore throat Cardiovascular Cardiovascular: Denies chest pain or palpitations Respiratory/Chest Respiratory/Chest: Denies cough, dyspnea or dyspnea on exertion Gastrointestinal Gastrointestinal: Reports abdominal pain; Denies constipation, diarrhea, melena, nausea or vomiting Genitourinary Genitourinary ED: Denies dysuria, hematuria or urinary frequency Musculoskeletal Musculoskeletal: Reports other Details: Central low back pain ; Denies arthralgias, myalgias or neck pain Integumentary Denies abscess, Abrasions or rash Neurologic Neurologic: Denies headache(s), paresthesias or weakness Hematologic/Lymphatic Hematologic/Lymphatic: Denies easy bleeding, easy bruising or lymphadenopathy EXAM Physical Exam Const Vital Signs: 02/24/22 07:08 Temperature 98.2 F Temperature Source Temporal Pulse Rate 96 Respiratory Rate 20 H Blood Pressure 137/92 H Blood Pressure Mean 107 Pulse Ox 99 Oxygen Delivery Method Room Air Positive well nourished and well developed Constitutional Narrative: Patient is in obvious discomfort dressed. Patient is grimacing. Hips are flexed and patient slightly rotated on her right side. General Appearance ED: well developed; Negative for NAD or pallor HEENT Reports moist mucous membranes HEENT Narrative: Ears normal. Nares patent. Mucosa moist. Eyes PERRL and EOMs intact bilaterally General Eye ED: Yes pale conjunctiva and scleral icterus Neck no lymphadenopathy, supple and no JVD Resp normal respiratory effort and clear to auscultation bilaterally Cardio regular rate, regular rhythm, S1 normal heart sound, no murmurs and no JVD GI soft to palpation and non-distended; Negative for normal to inspection, nondistended, normoactive bowel sounds or non-tender Auscultation: hypoactive bowel sounds Palpation: tender suprapubic and guarding other (Suprapubic/pelvic region) Back/Spine no CVA tenderness Thoracic Spine / Upper Back: thoracic spinal tenderness Lumbar Spine / Lower Back: lumbar spinal tenderness Extremity normal to inspection and full ROM Neuro oriented x3, CN's II-XII intact bilaterally and no sensory deficits noted Sensorium / Orientation: alert Motor Exam: strength 5/5 throughout Psych Psych Narrative: Patient appears anxious. Affect is flat. Skin no rashes or lesions noted and no wounds General Skin Exam: Negative for jaundice or pallor MDM MDM MDM Narrative Medical decision making narrative: Patient with abnormal vaginal bleeding suspect secondary to fibroids. CBC was obtained to assess H H and platelet count. Patient was medicated with IV morphine and Toradol and Zofran for pain and nausea. Will contact Dr. Brenda Bates regarding patient. Patient was reassessed at 0744. Pain has improved. Patient required more pain medicine. She was given additional dose of morphine. Case was discussed with Dr. Anila Kirby. Plan is observation for pain management. She will consult Dr. Brenda Bates after reviewing ultrasound and MRI to determine if patient requires surgery. Lab Data Attestation: I reviewed the patient's lab results. Lab results narrative: White count is elevated with evidence of demargination consistent with stress/pain. H H is unchanged. MCV is elevated and is baseline for patient Labs: Laboratory Results - last 24 hr 02/24/22 07:24 WBC 18.1 H RBC 4.26 Hgb 14.7 Hct 43.4 MCV 101.9 H MCH 34.5 H MCHC 33.9 RDW Std Deviation 49.9 H RDW Coeff of Cecilia 13.2 Plt Count 161 MPV 10.0 Immature Gran % (Auto) 0.400 Neut % (Auto) 86.3 H Lymph % (Auto) 6.7 L [place] % (Auto) 6.1 Eos % (Auto) 0.2 Baso % (Auto) 0.3 Absolute Neuts (auto) 15.7 H Absolute Lymphs (auto) 1.21 Nucleated RBC % 0 Discharge Plan Triage Chief Complaint: Vag Bleeding ED Provider: Fortino Avendano Dx/Rx/DC Orders Clinical Impression: Pelvic pain, Intramural uterine fibroid, Leukocytosis Prescriptions: No Action multivitamin Tablet 1 tab PO DAILY psyllium husk [Daily Fiber] 0.4 gram capsule 0.4 g PO DAILY megestrol 40 mg tablet 40 mg PO BID Qty: 60 6RF Primary Care Provider: Neeta Smart Referrals: Neeta Smart DO [Primary Care Provider] - Disposition Disposition: Acute Care Hospital [facility] What to do if you have Problems For any increased pain, shortness of breath, bleeding, nausea or vomiting, chest pain, or any unexpected problems, contact your Primary Care Provider. Call [facility] ([phone]) or report to the closest Emergency Room. Call 911 if necessary. 02/24/22 0945 <Electronically signed by Fortino Avendano MD> Cosigner Signature (if applicable): CC: Dr. Neeta Smart DO Signed Neeta Smart DO Work Phone: Start: 02-21-2022 MRI of pelvis with contrast Dr. Neeta Smart Work Phone: Start: 02-21-2022 End: 02-21-2022 Pelvis W/WO Contrast Comments: See Note; NOTES: [facility] Imaging Services [address] [place] [id number] Pelvis W/WO Contrast MR#: [id number] Acct: [id number] Name: ELVIA GALAVIZ Rep #: [id number] : 1970 F 51 From: Turner Law PCP: Dr. Neeta Smart DO Status: REG CLI Study: Pelvis W/WO Contrast Date of Exam: 02/21/22 Exam# [id number] Ordering Dr: Brenda Bates EXAM: MR PELVIS WITHOUT AND WITH INTRAVENOUS CONTRAST CLINICAL INDICATION: cervical mass, F/U PRIOR ABNORMAL office coordinator Notes HEAVY MENSES LASTING 2-3 WEEKS TECHNIQUE: Multiplanar and multisequence MR images of the pelvis without and with intravenous contrast. This report was created using Capical report Orthocon technology. CONTRAST: IV 14 CC DOTAREM COMPARISON: CT 03/22/2013 and US Feb 08 2022 3:44pm FINDINGS: APPENDIX: No evidence of acute appendicitis. INTRAPERITONEAL SPACE: Unremarkable. No ascites or other fluid collection. BLADDER: Unremarkable. REPRODUCTIVE: Enlarged uterus with a fibroid. The mass noted on US correlates with a posterior uterine fibroid. There is endometrial thickening and abnormal MRI signal in the endometrium. Multiple cystic areas in the endometrial junctional zone can represent microcysts. There is diffuse distribution. This can represent adenomyosis. There is a low T2 signal mass along the posterior lower uterine segment. This is 61 x 56 mm. 27mm low T2 signal fibroid in the anterior uterine body. BONES/JOINTS: Unremarkable. No suspicious lytic or blastic abnormality. SOFT TISSUES: Unremarkable. No pelvic wall hernia. LYMPH NODES: Unremarkable. No enlarged lymph nodes. MRI/Pelvis W/WO Contrast IMPRESSION: 1. Enlarged uterus with fibroids. The mass noted on US correlates with a posterior uterine fibroid. 2. There is endometrial thickening. Multiple cystic areas in the endometrial junctional zone can represent microcysts. There is diffuse distribution. This can represent adenomyosis. Electronically Signed: Turner Villanueva MD at 20:41 EDT , CC: Dr. Neeta Smart DO; Dr. Brenda Bates MD Philosophy Professor: Signed Neeta Smart DO Work Phone: Start: 02-15-2022 End: 02-15-2022 Radar Systems Engineer Office Visit Report Comments: See Note; NOTES: [facility] [address] [place] [address] OFFICE VISIT Date of Service: 02/15/22 MR#: [id number] Acct: [id number] Name: ELVIA GALAVIZ Rep #: [id number] : 1970 Provider: SALVATORE pillai Age/Sex: 51/F [place] [facility] [place] Signed Intake Vital Signs 02/15/22 14:19 Height 5 ft 2 in Intake Visit Reasons: repeat pap Allergies No Known Allergies Allergy (Verified 01/26/22 10:18) PFSH Surgical History Hx of tubal ligation Social History household members: spouse current occupational status: employed current occupation: [employer] history of recent travel: No Smoking Status: Never smoker alcohol intake: current alcohol intake frequency: a few times a week Alcohol type: wine substance use type: does not use diet: other what type of physical activity do you participate in: yoga frequency: 1-2 times per week seatbelt use: always do you feel safe at home: Yes additional social history: - Vasquez CHENG repeat pap Details: ELVIA GALAVIZ is a 51 year old who presents for repeat pap after one done 01/26 was unsatisfactory, lack of cells. Her HPV was negative. She did have EMB due to heavy menses at that time and aygestin and US were ordered. EMB returned disordered proliferative endometrium with hyperplasia and without atypia Ultrasound indicated 16cm uterus, lining 30mm and cervical mass that could not be definitively identified due to position. An MRI with contrast is ordered and awaiting PA from insurance. She is still on aygestin and has no bleeding since on this. Pregancy History 3 Elective abortions Hx Para 3 Spontaneous abortions Hx # Term Pregnancies Ectopic pregnancies Hx # Pregnancies Multiple births # of living children 3 Past Pregnancies Del. Date Name GA/Weeks Outcome Route Bth Weight Gen Labor Lgth Anesthesia Del Locatn Provider FOB Unknown Misael 1989 Unknown Mala 1989 Unknown Reyna 1994 Exam External Female Exam: normal external appearance Speculum Exam - Vagina: normal appearance of the vagina and normal vaginal discharge Speculum Exam - Cervix: normal appearance of the cervix (smooth, pink), no lesions and nontender Bimanual Exam- Vagina Uterus: No tender and enlarged (nodular mass low anteriorly) Bimanual Exam- Adnexa, other: normal adnexae, no masses and non-tender Coding Level of Care Code No Charge Diagnoses Cervical mass N88.8 Menorrhagia with irregular cycle N92.1 Unsatisfactory cytology of cervical Papanicolaou smear R87.615 Assessment and Plan Assessment and Plan (1) Cervical mass: Status: Acute (2) Menorrhagia with irregular cycle: Status: Acute (3) Unsatisfactory cytology of cervical Papanicolaou smear: Orders: Orders PAP IG HPV APTIMA 16/18,45 Today Plan thin prep pap only Reviewed US results and plan MRI She would like definitive therapy Finish aygestin, allow 5 day menses then start megestrol bid. Management dependent on MRI results. 02/15/22 1425 <Electronically signed by Carri Gaming NP, NP-C> Date Carri Gaming NP, NP-C Cosigner Signature: Date (if applicable) CC: Neeta Smart DO Work Phone: Start: 02-08-[address] Neeta Smart Work Phone: Start: 02-08-[address] Neeta Smart Work Phone: Start: 02-08-2022 End: 02-08-2022 Pelvic (Non ) Comments: See Note; NOTES: [facility] Imaging Services [address] [place] [address] Pelvic (Non ) MR#: [id number] Acct: [id number] Name: ELVIA GALAVIZ Rep #: [id number] : 1970 F 51 From: Turner Law PCP: Dr. Neeta Smart, DO Status: REG CLI Study: Pelvic (Non ) Date of Exam: 02/08/22 Exam# [id number] Ordering Dr: Carri Gaming LIME MIXER LIME MIXER -C STUDY: ULTRASOUND OF THE FEMALE PELVIS - COMPLETE REASON FOR EXAM: Female, 51 years old. menorrhagia TECHNIQUE: Endovaginal. Transvaginal US was obtained to better visualized the ovaries. COMPARISON: CT 03/22/2013 FINDINGS: The uterus is retroverted and is in a midline position. The uterus measures 16.5 x 12.1 cm. There is appearance of a mass of the cervix which is hypervascular. The endometrium measures 30 mm in thickness, and is hyperechoic. There is no demonstrated endometrial mass. Fibroids. These measure 34 mm. I.U.D. - The patient does not have an I.U.D. The right ovary is visualized. The right ovary measures 2.5 x 1.8 cm. There is no right ovarian cyst or ovarian mass. There is no visualized right adnexal mass or complex lesion. There is normal arterial and normal venous vascularity. The left ovary is visualized. The left ovary measures 3.2 x 2.1 cm. There is no left ovarian cyst or ovarian mass. There is no visualized left adnexal mass or complex lesion. There is normal arterial and normal venous vascularity. There is no fluid in the cul-de-sac. Urinary bladder volume is 364 cc. US/Pelvic (Non ) IMPRESSION: There is endometrial thickening. This is abnormal for the patient''s age if she is postmenopausal. Direct visualization is recommended to exclude an underlying mass. Diffusely enlarged uterus consistent for fibroid uterus. There is a mass at the level of the cervix which may be a fibroid. However cervical neoplasm cannot be excluded. Recommend Direct visualization Electronically Signed: Turner Villanueva MD at 19:39 EDT , CC: SALVATORE Gaming; Dr. Neeta Smart DO Philosophy Professor: Signed Neeta Smart DO Work Phone: Start: 02-08-2022 End: 02-08-2022 Transvaginal Non- Comments: See Note; NOTES: [facility] Imaging Services [address] [facility] [place] [place] [address] Transvaginal Non- MR#: [id number] Acct: [id number] Name: ANASTACIAELVIA WALTER Rep #: [id number] : 1970 F 51 From: Turner Law PCP: Dr. Neeta Smart DO Status: REG CLI Study: Transvaginal Non- Date of Exam: Exam# [id number] Ordering Dr: Carri Gaming NP, NP STUDY: ULTRASOUND OF THE FEMALE PELVIS - COMPLETE REASON FOR EXAM: Female, 51 years old. menorrhagia TECHNIQUE: Endovaginal. Transvaginal US was obtained to better visualized the ovaries. COMPARISON: CT 03/22/2013 FINDINGS: The uterus is retroverted and is in a midline position. The uterus measures 16.5 x 12.1 cm. There is appearance of a mass of the cervix which is hypervascular. The endometrium measures 30 mm in thickness, and is hyperechoic. There is no demonstrated endometrial mass. Fibroids. These measure 34 mm. I.U.D. - The patient does not have an I.U.D. The right ovary is visualized. The right ovary measures 2.5 x 1.8 cm. There is no right ovarian cyst or ovarian mass. There is no visualized right adnexal mass or complex lesion. There is normal arterial and normal venous vascularity. The left ovary is visualized. The left ovary measures 3.2 x 2.1 cm. There is no left ovarian cyst or ovarian mass. There is no visualized left adnexal mass or complex lesion. There is normal arterial and normal venous vascularity. There is no fluid in the cul-de-sac. Urinary bladder volume is 364 cc. US/Transvaginal Non- IMPRESSION: There is endometrial thickening. This is abnormal for the patient''s age if she is postmenopausal. Direct visualization is recommended to exclude an underlying mass. Diffusely enlarged uterus consistent for fibroid uterus. There is a mass at the level of the cervix which may be a fibroid. However cervical neoplasm cannot be excluded. Recommend Direct visualization Electronically Signed: Turner Villanueva MD at 19:39 EDT Reading Location ID and State: [facility] / [place] , Service support , CC: SALVATORE Gaming; Dr. Neeta Smart DO Philosophy Professor: Signed Neeta Smart DO Work Phone: Start: 01-26-2022 End: 01-26-2022 Radar Systems Engineer Office Visit Report Comments: See Note; NOTES: [facility] [address] [place] [address] OFFICE VISIT Date of Service: 01/26/22 MR#: [id number] Acct: [id number] Name: ANASTACIANOVEMBER Thanh Rep #: [id number] : 1970 Provider: SALVATORE pillai Age/Sex: 51/F [place] [facility] [place] Status: Signed Intake Vital Signs 01/26/22 10:18 01/26/22 10:20 Height 5 ft 2 in 5 ft 2 in Weight: 151 lb 6 oz BMI 27.6 BP 118/72 Intake Visit Reasons: discuss heavy periods Allergies No Known Allergies Allergy (Verified 01/26/22 10:18) Medications multivitamin 1 tab PO DAILY 03/24/21 [History Confirmed 01/26/22] psyllium husk 0.4 gram capsule (Daily Fiber) 0.4 g PO DAILY 03/24/21 [History Confirmed 01/26/22] Is last menstrual period known: Yes Last Menstral Period: 01/13/22 Nurse's Note: had menses 01/13-01/24, very heavy. pt felt weak, light headed at times PFSH Surgical History Hx of tubal ligation Social History household members: spouse current occupational status: employed current occupation: [employer] history of recent travel: No Smoking Status: Never smoker alcohol intake: current alcohol intake frequency: a few times a week Alcohol type: wine substance use type: does not use diet: other what type of physical activity do you participate in: yoga frequency: 1-2 times per week seatbelt use: always do you feel safe at home: Yes additional social history: - Vasquez [facility] discuss heavy periods Details: ELVIA GALAVIZ is a 51 year old who presents for last 3 months menses heavy, lasting up to 2 weeks. Changing protection every hour, 2 pads and tampon. Female Reproductive History Last Menstral Period: 01/13/22 Pregancy History 3 Elective abortions Hx Para 3 Spontaneous abortions Hx # Term Pregnancies Ectopic pregnancies Hx # Pregnancies Multiple births # of living children 3 Past Pregnancies Del. Date Name GA/Weeks Outcome Route Bth Weight Gen Labor Lgth Anesthesia Del Locatn Provider FOB Unknown Misael 1989 Unknown Mala 1989 Unknown Reyna 1994 ROS Const Constitutional: Reports system reviewed and no additional complaints, except as documented Eyes Eyes: Reports system reviewed and no additional complaints, except as documented GI GI: Denies abdominal pain or change in bowel habits : Reports as per HPI Exam Const General: cooperative and no acute distress Nutritional Appearance: well nourished Orientation: oriented x3 General: bladder normal to palpation External Female Exam: normal external appearance and normal appearance of the urethra Urethra: normal appearance of the urethra Speculum Exam - Vagina: normal appearance of the vagina, normal vaginal discharge, no lesions and nontender Speculum Exam - Cervix: normal appearance of the cervix and other (smooth, nonfriable) Bimanual Exam- Vagina Uterus: normal bimanual exam, bladder normal to palpation, uterine shape normal, uterine mobility normal, non-tender and enlarged Bimanual Exam- Adnexa, other: normal adnexae, no masses and non-tender Office Procedures Endometrial Biopsy Endometrial Biopsy Consent Signed: Yes Time out checklist: patient, procedure, site marked/identified, positioning of patient, supplies available, allergies confirmed and team agrees on procedure Time out time: 10:33 tenaculum used: Yes dilator used: No Details: Cervix prepped with betadine and syringe pipelle inserted into uterus 9cm without complication. Specimen obtained and sent to lab for analysis. All instruments removed from vagina without c omplications. Excellent hemostasis noted. Bleeding noted as soon as pipelle inserted and is malodorous Coding Level of Care Code Attention Glassware Selector Diagnoses Menorrhagia with irregular cycle N92.1 CPT Codes Endometrial Biopsy (01756) Assessment and Plan Assessment and Plan (1) Menorrhagia with irregular cycle: Status: Acute Plan: EMB pending, US ordered, aygestin Orders: Orders Endometrial Biopsy Today Plan Reviewed S S infection, written information given Ultrasound Rx aygestin Management dependent on above 01/26/22 1044 <Electronically signed by Carri Gaming NP LIME MIXER-C> Date Carri Gaming NP, NP-C Cosigner Signature: Date (if applicable) CC: Neeta Smart DO Work Phone: Start: 03-24-2021 End: 03-24-2021 Radar Systems Engineer Office Visit Report Comments: See Note; NOTES: [facility] [place] [address] [place], [place] [id number] OFFICE VISIT Date of Service: 03/24/21 MR#: [id number] Acct: [id number] Name: ELVIA GALAVIZ Rep #: [id number] : 1970 Provider: SALVATORE pillai Age/Sex: 50/F [place] [facility] [place]: Signed Intake Vital Signs 03/01/21 14:48 03/24/21 09:21 03/24/21 09:48 Height 5 ft 2 in 5 ft 2 in Weight: 154 lb BMI 28.1 28.1 BP 120/70 120/70 Intake Visit Reasons: Consult for menapause Allergies No Known Allergies Allergy (Verified 03/24/21 09:23) Medications multivitamin 1 tab PO DAILY 03/24/21 [History Confirmed 03/24/21] psyllium husk 0.4 gram capsule 0.4 g PO DAILY 03/24/21 [History Confirmed 03/24/21] PFSH Surgical History Hx of tubal ligation Social History (Updated 03/24/21 @ 09:27 by Andreea Winters) household members: spouse current occupational status: employed current occupation: [employer] history of recent travel: No Smoking Status: Never smoker alcohol intake: current alcohol intake frequency: a few times a week Alcohol type: wine substance use type: does not use diet: other what type of physical activity do you participate in: yoga frequency: 1-2 times per week seatbelt use: always do you feel safe at home: Yes additional social history: - Vasquez Pregancy History 3 Elective abortions Hx Para 3 Spontaneous abortions Hx # Term Pregnancies Ectopic pregnancies Hx # Pregnancies Multiple births # of living children 3 Past Pregnancies Del. Date Name GA/Weeks Outcome Route Bth Weight Infant Gen Labor Lgth Anesthesia Del Locatn Provider FOB Unknown Misael 1989 Unknown Mala 1989 Unknown Reyna 1994 HPI Consult for menapause : Details: ELVIA GALAVIZ is a 50 year old who presents for new patient annual exam. Last exam per Dr Dora Machado >1 year ago. Has noted that menses irregular, occuring every 3-4 months, last one in February was very light, has had some heavy menses. Most of concern is lack of libido, no longer sexually aroused by nipple stimulation, difficult to achieve orgasm. Was has some hot flashes but have now stopped. Denies other family/emotional stressors. Last PAP: 2016 History of abnormal PAP: no Last mammogram: 08/2020 History of abnormal mammogram: no Colon cancer screening: almost 10 yr ago, IBS Other preventative health care screenings: Ami Details: ELVIA GALAVIZ is a 50 year old who presents for annual exam. Last PAP: [] History of abnormal PAP: [] Last mammogram: [] History of abnormal mammogram: [] Colon cancer screening: [] Other preventative health care screenings: [] Female Reproductive History Questions: metorrhagia: No, sexually active: Yes, dyspareunia: No and PCB: No Menopausal Symptoms: Yes change in libido Menopausal Treatment: No HRT, No Vaginal Estrogen, No Osphena, No OTC treatments and No prescription non-hormonal treatment ROS Const Constitutional: Denies fatigue, weight gain or weight loss Cardio Card: Denies chest pain Resp Resp: Denies cough or dyspnea on exertion GI GI: Denies abdominal pain, bloating, change in stool character, constipation or vomiting : Reports as per HPI; Denies difficulty voiding, pelvic pain, urinary frequency, urinary incontinence, urinary urgency, vaginal discharge or vaginal pruritus Psych Psych: Reports change in libido Exam Const General: cooperative, healthy appearing, no acute distress and well developed Orientation: alert, oriented to person and oriented to place [facility] Head: normal to inspection Neck Neck: normal visual inspection Thyroid: thyroid normal Lymphatic: no lymphadenopathy noted Chest Breast inspection: normal inspection of the breasts and normal inspection of the axillae Breast palpation: normal palpation of the breasts, normal palpation of the axillae and no axillary lymphadenopathy Resp Effort Inspection: normal respiratory effort GI Palpation: soft, no masses and nontender Rectal Exam: deferred External Female Exam: normal external appearance and normal appearance of the urethra Urethra: normal appearance of the urethra and normal palpation Speculum Exam - Vagina: normal appearance of the vagina and normal vaginal discharge Speculum Exam - Cervix: normal appearance of the cervix Bimanual Exam- Vagina Uterus: normal bimanual exam, uterine size normal, uterine shape normal and non-tender Bimanual Exam- Adnexa, other: normal adnexae, no masses, normal and non-tender Pelvic Support: normal Neuro General: patient alert and patient oriented x3 Psych Affect: normal affect Coding Level of Care Code Off vis,new,prev 40-64yrs Exam Problem Focused Diagnoses Routine gynecological examination Z01.411 Gynecological examination findings: abnormal findings PRESENT Climacteric N95.1 Lack of libido F52.0 Assessment and Plan Assessment and Plan (1) Routine gynecological examination: Qualifiers: Gynecological examination findings: abnormal findings PRESENT Qualified Code(s): Z01.411 - Encounter for gynecological examination (general) (routine) with abnormal findings (2) Climacteric: Status: Acute (3) Lack of libido: Status: Acute 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 Discussed symptoms of menopause, handout given. Consider OTC DHEAS. Reviewed abnormal bleeding patterns to report Colonoscopy enc to check when due with PCP RTO 1 year, prn with problems [employer] Plan Details Other Orders: Orders: SCRN MAMM (CAD)W/KELLI BILAT Today 03/24/21 1006 <Electronically signed by [employer] NP LIME MIXER-C> Date [employer] NP [employer] Cosigner Signature: Date (if applicable) CC: Neeta Smart DO Work Phone: Start: 12-04-2019 End: 12-04-2019 Foot min 3 Views Comments: See Note; NOTES: [facility] Imaging Services [address] [place] [address] Foot min 3 Views MR#: [id number] Acct: [id number] Name: ANASTACIAELVIA Thanh Rep #: [id number] : 1970 F 49 From: Guicho leung MD PCP: Dr. Jorden Mueller MD Status: REG CLI Study: Foot min 3 Views Date of Exam: 12/04/19 Exam# [id number] Ordering Dr: Neeta Smart DO STUDY: X-RAY - LEFT FOOT CLINICAL: Female, 49 years old. Pain in the toes, no injury TECHNIQUE: 3 view(s) of the foot. COMPARISON: None. FINDINGS: Normal talus, calcaneus, and tarsal bones. Normal visualized subtalar, talonavicular, calcaneocuboid, tarsal and tarsometatarsal articulations. Normal metatarsi. Normal metatarsophalangeal joint of the great toe. Normal tibial and fibular sesamoid bones. Normal interphalangeal joint of the great toe. Normal phalanges of the great toe. Normal second through fifth metatarsophalangeal joints. Normal interphalangeal joints and phalanges of the lesser toes. The soft tissue structures are unremarkable. RAD/Foot min 3 Views IMPRESSION: Normal x-ray examination of the foot. Electronically Signed: Guicho Oglesby, at 16:17 EDT , Service support , CC: Dr. Jorden Mueller MD; Neeta Smart DO Philosophy Professor: Signed Neeta Smart Work Phone: Start: 12-04-2019 End: 12-04-2019 Hand Min 3 Views Comments: See Note; NOTES: [facility] Imaging Services [address] [place] [address] Hand Min 3 Views MR#: [id number] Acct: [id number] Name: ANASTACIANovember Rep #: [id number] : 1970 F 49 From: Guicho leung MD PCP: Dr. Jorden Mueller MD Status: REG CLI Study: Hand Min 3 Views Date of Exam: 12/04/19 Exam# [id number] Ordering Dr: Neeta Smart DO STUDY: X-RAY - LEFT HAND REASON FOR EXAM: Female, 49 years old. Pain in the fingers, no injury TECHNIQUE: 3 view(s) of the hand. COMPARISON: None. FINDINGS: Normal radiocarpal articulation. Normal distal radioulnar joint. Normal visualized carpal bones. Normal carpal articulations Normal carpometacarpal articulation of the thumb. Normal second through fifth carpometacarpal joints. Normal metacarpi. Normal metacarpophalangeal joint of the thumb. Normal interphalangeal joint of the thumb. Normal proximal and distal phalanges of the thumb. Normal metacarpophalangeal joints of the second through fifth fingers. Normal proximal and distal interphalangeal joints of the second through fifth fingers. Normal phalanges of the second through fifth fingers. The soft tissue structures are unremarkable. RAD/Hand Min 3 Views IMPRESSION: Normal x-ray examination of the hand. Electronically Signed: Guicho Oglesby, at 16:17 EDT , Service support , CC: Dr. Jorden Mueller MD; Neeta Smart DO Philosophy Professor: Signed Neeta Gómezon Work Phone: Start: 12-04-2019 End: 12-04-2019 Shoulder min 2 Views Comments: See Note; NOTES: [facility] Imaging Services [address] [place] [address] Shoulder min 2 Views MR#: [id number] Acct: [id number] Name: ANASTACIANovember Rep #: [id number] : 1970 F 49 From: Thierry damon MD PCP: Dr. Jorden Mueller MD Status: REG CLI Study: Shoulder min 2 Views Date of Exam: 12/04/19 Exam# [id number] Ordering Dr: Neeta Smart DO STUDY: X-RAY - LEFT SHOULDER REASON FOR EXAM: Female, 49 years old. Pain TECHNIQUE: 4 view(s) of the shoulder. COMPARISON: None. FINDINGS: Normal glenohumeral articulation. Normal acromioclavicular joint. Normal acromion. Normal humeral head and visualized proximal humerus. The soft tissue structures are unremarkable. There is no demonstrated fracture. Normal visualized pulmonary apex. RAD/Shoulder min 2 Views IMPRESSION: Normal x-ray examination of the shoulder. Electronically Signed: Thierry Enciso MD at 16:07 EDT , Service support , CC: Dr. Jorden Mueller MD; Neeta Smart DO Philosophy Professor: Signed Neeta Smart Work Phone: Start: 06-29-2016 End: 06-29-2016 Bilat Scrn Digital AND CAD Comments: See Note; NOTES: [facility] Imaging Services [address] [place] [address] Verdana 4d Bilat Scrn Digital AND CAD MR#: [id number] Acct: [id number] Name: STEVENOVEMBER Rep #: [id number] : 1970 F 46 From: Guicho Oglesby MD PCP: Jeane Mcdonald DO Status: [facility] CLI Study: Bilat Scrn Digital AND CAD Date of Exam: 06/29/16 Exam# [id number] Ordering Dr: Celeste Juarez MD MAMMOGRAPHY - BILATERAL SCREENING REASON FOR EXAM: Female, 46 years old. Routine annual screening examination. PERTINENT HISTORY: Aunt with breast cancer. TECHNIQUE: Digital bilateral breast kelli (3D mammographic acquisition) in the CC and MLO projections. 2-D mediolateral oblique (MLO) and craniocaudad (CC) views of both breasts were obtained. CAD: Full Field Digital Mammography with Computer Added Detection was performed. COMPARISON: Comparison is made with prior study dated June 11, 2015. FINDINGS: Breast Composition: There are scattered areas of fibroglandular density. There are no dominant masses or suspicious calcifications. No other significant abnormalities are identified. There has been no significant change since the prior study. HPBI/Bilat Scrn Digital AND CAD IMPRESSION: Stable bilateral screening mammogram. Yearly follow-up mammogram recommended. (A) ASSESSMENT CATEGORY: BIRADS Category 1: Negative. A letter regarding these results will be sent to the patient by the facility within 30 days. Approximately 10% of breast cancers are not detected by mammography. A normal mammogram should not delay biopsy of a clinically suspicious abnormality. [id number] Electronically Signed: Guicho Oglesby MD at 9:37 EST Tel [phone], Service support [phone], CC: Jeane Mcdonald DO; Celeste Juarez MD Philosophy Professor: Signed Neeta Smart Start: 06-11-2015 End: 06-11-2015 Bilat Scrn Digital AND CAD Comments: See Note; NOTES: [facility] Imaging Services [address] [place] [address] Verdana 4d Bilat Scrn Digital AND CAD MR#: [id number] Acct: [id number] Name: STEVENOVEMBER Rep #: [id number] : 1970 F 45 From: Guicho Oglesby MD PCP: Jeane Mcdonald DO Status: REG CLI Study: Bilat Scrn Digital AND CAD Date of Exam: 06/11/15 Exam# [id number] Ordering Dr: Celeste Juarez MD MAMMOGRAPHY - BILATERAL SCREENING REASON FOR EXAM: Female, 45 years old. Routine annual screening examination. PERTINENT HISTORY: Aunt with breast cancer. TECHNIQUE: Digital examination. Mediolateral oblique (MLO) and craniocaudad (CC) views of both breasts were obtained. CAD: CAD was performed on this study. COMPARISON: Comparison is made with prior study dated June 29, 2009. FINDINGS: Breast Composition: There are scattered areas of fibroglandular density. There are no dominant masses or suspicious calcifications. No other significant abnormalities are identified. There has been no significant change since the prior study. IMPRESSION: Stable bilateral screening mammogram. Yearly follow-up recommended. (A) ASSESSMENT CATEGORY: BIRADS Category 1: Negative. A letter regarding these results will be sent to the patient by the facility within 30 days. Approximately 10% of breast cancers are not detected by mammography. A normal mammogram should not delay biopsy of a clinically suspicious abnormality. Electronically Signed: Guicho Oglesby MD at 10:59 EST Tel [phone], Service support [phone], CC: Jeane Mcdonald DO; Celeste Juarez MD Philosophy Professor: Signed Jeane Mcdonald Work Phone: Start: 12-16-2013 End: 12-16-2013 Hepatobilliary Imaging Comments: See Note; NOTES: [facility] Imaging Services [address] [place] [address] Nuclear Medicine Report MR#: [id number] Acct: [id number] Name: STEVE Rep #: [id number] : 1970 F 43 From: Chavez Oliveira DO PCP: Jeane Mcdonald DO Status: REG CLI Study: Hepatobilliary Imaging Date of Exam: 12/16/13 Exam# [id number] Ordering Dr: Jeane Mcdonald DO CLINICAL: 43-year-old female with reported history of right upper quadrant abdominal pain and nausea. RADIONUCLIDE HEPATOBILIARY SCINTIGRAPHY COMPARISON: Abdominal ultrasound report 12/02/13 FINDINGS: Following the intravenous administration of 5.2 mCi of Tc Mebrofenin, hepatobiliary images reveal: 1. Relatively prompt and homogeneous radiopharmaceutical concentration is noted by a normal sized liver. No parenchymal defects are identified. 2. Gallbladder activity is identified at 15 minutes post radiopharmaceutical administration. 3. Small intestinal tract is observed at 45 minutes following tracer injection. 4. Washout of the radiopharmaceutical by the hepatic parenchyma appears qualitatively normal. Cholecystokinin (0.02 ug/kg) was administered intravenously over a 30-minute period. The post CCK gallbladder ejection fraction calculated at 20 minutes following Cholecystokinin administration was noted to be 74.4 % (normal greater than 35%). During 30 minutes of post CCK imaging, there is no scintigraphic evidence of reflux of the radiotracer into the common hepatic duct or refilling of the gallbladder. IMPRESSION: 1. NORMAL 99m Tc Mebrofenin hepatobiliary imaging examination with Cholecystokinin. A. A gallbladder ejection fraction calculated to be greater than 35% following the administration of Cholecystokinin makes the probability of functional hepatobiliary disease (gallbladder and/or sphincter of Oddi dyskinesia) and/or organic hepatobiliary disease (chronic acalculous cholecystitis and/or cystic duct syndrome) to be low. (Tra Reagan et al, Journal of Nuclear Medicine 32:1695, 1990). Electronically Signed: Chavez Oliveira DO at 20:50 EDT Tel [phone], Service support [phone], CLINICAL: 43-year-old female with reported history of right upper quadrant abdominal pain and nausea. RADIONUCLIDE HEPATOBILIARY SCINTIGRAPHY COMPARISON: Abdominal ultrasound report 12/02/13 FINDINGS: Following the intravenous administration of 5.2 mCi of Tc Mebrofenin, hepatobiliary images reveal: 1. Relatively prompt and homogeneous radiopharmaceutical concentration is noted by a normal sized liver. No parenchymal defects are identified. 2. Gallbladder activity is identified at 15 minutes post radiopharmaceutical administration. 3. Small intestinal tract is observed at 45 minutes following tracer injection. 4. Washout of the radiopharmaceutical by the hepatic parenchyma appears qualitatively normal. Cholecystokinin (0.02 ug/kg) was administered intravenously over a 30-minute period. The post CCK gallbladder ejection fraction calculated at 20 minutes following Cholecystokinin administration was noted to be 74.4 % (normal greater than 35%). During 30 minutes of post CCK imaging, there is no scintigraphic evidence of reflux of the radiotracer into the common hepatic duct or refilling of the gallbladder. IMPRESSION: 1. NORMAL 99m Tc Mebrofenin hepatobiliary imaging examination with Cholecystokinin. A. A gallbladder ejection fraction calculated to be greater than 35% following the administration of Cholecystokinin makes the probability of functional hepatobiliary disease (gallbladder and/or sphincter of Oddi dyskinesia) and/or organic hepatobiliary disease (chronic acalculous cholecystitis and/or cystic duct syndrome) to be low. (Tra Reagan et al, Journal of Nuclear Medicine 32:1695, 1990). Electronically Signed: Chavez Oliveira DO at 20:51 EDT Tel [phone], Service support [phone], CC: Jeane Mcdonald DO Philosophy Professor: Signed Jeane Mcdonald Work Phone: Start: 12-02-2013 End: 12-02-2013 Gallbladder Comments: See Note; NOTES: [facility] Imaging Services [address] [place] [address] Ultrasound Report MR#: [id number] Acct: [id number] Name: STEVE Rep #: [id number] : 1970 F 43 From: Guicho Oglesby MD PCP: Jeane Mcdonald DO Status: REG CLI Study: Gallbladder Date of Exam: 12/02/13 Exam# [id number] Ordering Dr: Jeane Mcdonald DO STUDY: ABDOMINAL ULTRASOUND - RIGHT UPPER QUADRANT REASON FOR VISIT: Female, 43 years old. Epigastric pain. TECHNIQUE: Ultrasound evaluation of the right upper quadrant was performed with real-time and static garza-scale imaging. TECHNICAL QUALITY: Adequate. COMPARISON: None. FINDINGS: Liver: The liver measures 12.5 cm. There is normal echogenicity of the liver. The bile ducts are within normal limits. There is hepatic color flow. The direction of portal flow is hepatopetal. There is no demonstrated mass lesion. Gallbladder: Normal distended gallbladder. The gallbladder wall measures 2.5 mm. There is a negative sonographic Sales's sign. There is no pericholecystic fluid. There are no gallstones. Common Bile Duct (C.B.D.): The common bile duct measures 4.2 mm. Pancreas: Normal size of the head, body and tail of the pancreas. There is normal echogenicity of the pancreas. There is no demonstrated pancreatic mass or cyst. Right Kidney: Normal size of the right kidney. The right kidney measures 9.4 cm. Normal renal cortex. The right cortex measures 1.4 cm. There is no demonstrated renal mass or cyst. There is no right hydronephrosis. IMPRESSION: Normal right upper quadrant ultrasound examination. Electronically Signed: Guicho Oglesby MD at 9:18 EDT Tel [phone], Service support [phone], CC: Jeane Mcdonald DO Philosophy Professor: Signed Jeane Mcdonald Work Phone: Start: 11-29-2013 End: 11-29-2013 Abd Inc Decub and/or Erect Comments: See Note; NOTES: [facility] Imaging Services [address] [place] [address] Radiology Report MR#: [id number] Acct: [id number] Name: WILSON Rep #: [id number] : 1970 F 43 From: Fidencio Velez MD PCP: Status: REG CLI Study: Abd Inc Decub and/or Erect Date of Exam: 11/29/13 Exam# [id number] Ordering Dr: Jeane Mcdonald DO STUDY: X-RAY - ABDOMEN/PELVIS REASON FOR EXAM: Female, 43 years old. Abdominal pain for 2 months. TECHNIQUE: AP supine and upright views of the abdomen and pelvis. COMPARISON: None. FINDINGS: Normal visualized lung bases. There is an unremarkable bowel gas pattern. There is no demonstrated free abdominal air. The visualized liver, spleen and kidneys are grossly normal in size and morphology. Tubal ligation clips are noted bilaterally. Normal visualized osseous structures. IMPRESSION: Normal x-ray examination of the abdomen and pelvis. Electronically Signed: Fidencio Velez MD at 22:10 EDT Tel [phone], Service support [phone], RAD/Abd Inc Decub and/or Erect IMPRESSION: Normal x-ray examination of the abdomen and pelvis. Electronically Signed: Fidencio Velez MD at 22:10 EDT Tel [phone], Service support [phone], CC: Jeane Mcdonald DO Philosophy Professor: Signed Jeane Mcdonald Work Phone: Start: 10-07-2013 End: 10-07-2013 Humerus min 2 Views Comments: See Note; NOTES: [facility] Imaging Services [address] [place] [address] Radiology Report MR#: [id number] Acct: [id number] Name: STEVENOVEMBER Rep #: [id number] : 1970 F 43 From: Guicho Oglesby MD PCP: Status: REG CLI Study: Humerus min 2 Views Date of Exam: 10/07/13 Exam# [id number] Ordering Dr: Jeane Mcdonald DO STUDY: X-RAY - LEFT HUMERUS REASON FOR EXAM: Female, 43 years old. Pain. TECHNIQUE: 2 views of the humerus. COMPARISON: None. FINDINGS: Normal visualized humerus. There is no demonstrated fracture or osseous destructive process. There is no demonstrated soft tissue abnormality. IMPRESSION: Normal x-ray examination of the humerus. Electronically Signed: Guicho Oglesby M.D. at 9:59 EST , Service support [phone], CC: Jeane Mcdonald DO Philosophy Professor: Signed Jeane Mcdonald Work Phone: H/O: hysterectomy Status post hysterectom y Dr. Neeta Smart Work Phone: Comment on above: total robotic for 700gram uterus, ureter al catheter used during surgery. 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 Comment on above: with dr mancuso at [facility] had a [place] rine mass the size of an orange - path came back benign Total hysterectomy Adriano Pr yor [employer] Comment on above: with dr mancuso at [facility] had a [place] rine mass the size of an orange - path came back benign Plan of Treatment Date Care Activity Detail Author Start: 10-24-2024 Glucose [Mass/volume] in Serum or Plasma [facility] ([place]) Start: 10-24-2024 Lipid 1996 panel - Serum or Plasma [facility] ([place]) Start: 10-24-2024 Nursing evaluation of patient and report InPerson; Nurse Visit [place] - [facility] Start: 01-23-2023 Procedure Education Eprescribed prescriptions (G8553) [facility]; [facility] Work Phone: Start: 01-23-2023 Provider Instructions for Treatment *Abd Pain Red Flags [facility]; [facility] Work Phone: Start: 01-23-2023 Assay of gammaglobulin iga igd igg igm each Celiac Disease Comphrehensive Profile (83721) [facility]; [facility] Work Phone: Start: 01-23-2023 Assay of amylase Amylase (22505) [facility]; [facility] Work Phone: Start: 01-23-2023 Assay of lipase Lipase (12516) [facility]; [facility] Work Phone: Start: 01-23-2023 Sedimentation rate rbc non-automated Sed Rate Erythrocyte (37583) [facility]; [facility] Work Phone: Start: 01-23-2023 Comprehensive metabolic panel Metabolic Panel, Comprehensive (43674) [facility]; [facility] Work Phone: Start: 01-23-2023 Blood count complete automated CBC (Auto) (42560) [facility]; [facility] Work Phone: Start: 03-30-2022 Lipid panel LIPID PANEL (13080) [facility]; [facility] Work Phone: Start: 03-30-2022 Procedure Education Eprescribed prescriptions (G8553) [facility]; [facility] Work Phone: Start: 02-26-2022 Patient discharge [facility] Work Phone: Start: 02-26-2022 Removal of urinary catheter [facility] Work Phone: Start: 02-25-2022 Following clinical pathway protocol [facility] Work Phone: Start: 02-25-2022 Ambulation therapy management [facility] Work Phone: Start: 02-25-2022 Elevation of head of bed [facility] Work Phone: Start: 02-25-2022 Incentive spirometry [facility] Work Phone: Start: 02-25-2022 Measuring intake and output [facility] Work Phone: Start: 02-25-2022 Notification of physician [facility] Work Phone: Start: 02-25-2022 Oxygen therapy [facility] Work Phone: Start: 02-25-2022 Patient education [facility] Work Phone: Start: 02-25-2022 Procedures relating to eating and drinking [facility] Work Phone: Start: 02-25-2022 Taking patient vital signs [facility] Work Phone: Start: 02-25-2022 Wound care [facility] Work Phone: Start: 02-25-2022 [facility] Work Phone: Start: 02-25-2022 Introduction of urinary catheter [facility] Work Phone: Start: 02-25-2022 Total abdominal hysterectomy [facility] Work Phone: Start: 02-25-2022 Electrocardiographic procedure [facility] Work Phone: Start: 02-25-2022 Collection of urine and strain for calculus [facility] Work Phone: Start: 02-24-2022 Admission procedure [facility] Work Phone: Start: 02-24-2022 Application of intermittent pneumatic compression device [facility] Work Phone: Start: 02-24-2022 Measuring intake and output [facility] Work Phone: Start: 02-24-2022 [facility] Work Phone: Start: 02-24-2022 Vital signs measurements [facility] Work Phone: Start: 02-24-2022 Following clinical pathway protocol [facility] Work Phone: Start: 02-15-2022 Liquid based cervical cytology screening [facility] Work Phone: Start: 11-20-2020 Procedure Education Eprescribed prescriptions (G8553) [facility]; [facility] Work Phone: Start: 11-20-2020 Provider Instructions for Treatment COVID SCREENING FORM [facility]; [facility] Work Phone: Start: 03-18-2020 Procedure Education Eprescribed prescriptions (G8553) [facility] Work Phone: Start: 01-27-2020 Procedure Education Eprescribed prescriptions (G8553) [facility] Work Phone: Start: 01-27-2020 Provider Instructions for Treatment [facility] Work Phone: Start: 11-26-2019 Procedure Education Eprescribed prescriptions (G8553) [facility] Work Phone: Start: 08-31-2015 Procedure Education Eprescribed prescriptions (G8553) [facility] Work Phone: Start: 11-05-2014 Patient Education Water in diet, brief version [facility] Work Phone: Start: 11-05-2014 Provider Instructions for Treatment [facility] Work Phone: Start: 03-22-2013 Urnls dip stick/tablet reagent auto microscopy URINALYSIS, W/ MICRO (47168) [facility] Work Phone: Start: 03-22-2013 Gonadotropin chorionic quantitative HCG Quantitative (05833) [facility] Work Phone: Start: 03-22-2013 Blood count complete auto&auto difrntl wbc CBC, Platelets & Auto Diff (22966) [facility] Work Phone: Start: 03-22-2013 Assay of lipase Lipase (78499) [facility] Work Phone: Start: 03-22-2013 Amylase [Catalytic activity/Vol] Amylase (59957) [facility] Work Phone: Start: 03-22-2013 Assay of amylase Amylase (30979) [facility]; [facility] Work Phone: Start: 03-22-2013 Comprehensive metabolic panel Metabolic Panel, Comprehensive (50240) [facility] Work Phone: Start: 12-19-2012 Culture bct isol&prsmptv id isolate ea urine URINE LAZARO CULTURE-IDENTIFICATN (96329) [facility] Work Phone: Start: 12-04-2012 Provider Instructions for Treatment *Antibiotic Usage Education - Female [facility] Work Phone: Start: 10-06-2010 Provider Instructions for Treatment *Antibiotic Usage Education - Female [facility] Work Phone: Start: 10-06-2010 Culture bacterial quanttative colony count urine URINE LAZARO CULTURE-HAKEEM COL COUNT (39311) [facility] Work Phone: Start: 10-02-2009 Provider Instructions for Treatment *Antibiotic Usage Education - Female [facility] Work Phone: Start: 06-09-2008 Potassium [Moles/Vol] Potassium Serum (98622) [facility] Work Phone: Start: 06-09-2008 Potassium serum plasma/whole blood Potassium Serum (07973) [facility]; [facility] Work Phone: Start: 06-09-2008 Assay of magnesium Magnesium (01959) [facility]; [facility] Work Phone: Comment on above: do in 2 weeks Start: 06-09-2008 Magnesium [Mass/Vol] Magnesium (41175) [facility] Work Phone: Comment on above: do in 2 weeks Start: 05-30-2008 Assay of magnesium Magnesium (09979) [facility]; [facility] Work Phone: Start: 05-30-2008 Magnesium [Mass/Vol] Magnesium (12844) [facility] Work Phone: Start: 05-30-2008 Basic metabolic panel calcium total Metabolic Panel, Basic (19210) [facility] Work Phone: Comment on above: do lab on monday Start: 09-27-2006 Provider Instructions for Treatment [facility] Work Phone: Path report.final Dx Spec Wo rk [facility] Work Phone: Patient referral [facility] Work Phone: US Pelvis [facility] Work Phone: [place] Pelvis transvaginal [place] [facility] Work Phone: [facility] Work Phone: [facility] Work Phone: [facility] Work Phone: [facility] Work Phone: [facility] Work Phone: [facility] Work Phone[facility] Work Phone[facility] Work Phone: [facility] Work Phone: [facility]; [facility] Work Phone: [facility]; [facility] Work Phone: Immunizations Immunization Date Immunization Notes Care Provider [facility] 05-30-2008 influenza, seasonal, injectable [employer] [facility] Work Phone: Comment on above: 0.5cc given im lt ar m lot [id number] exp 01-13 Payers Date Payer Category Payer Self-pay 2023 Private Health Insurance [id number] 1970 Unknown [id number] 1970 Unknown [id number] 1970 Unknown [id number] 1970 Unknown [id number] 1970 Unknown [id number] Private Health Insurance [id number] Self-pay [id number] Unknown [id number] Unknown Unknown [facility] WES [id number] 5 Unknown [id number] Unknown [id number] Unknown [id number] Unknown [id number] Unknown [id number] Unknown [id number] Unknown [id number] Unknown [id number] Unknown [id number] Social History Date Type Detail Facility Most Recent Primary Occupation Most Recent 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 Start: 06-06-2024 Tobacco smoking stat us UTIS Never smoked tobacco (finding) [facility] Medical Equipment Procedure Code Equipment Code Equipment Original Text Equi pment Identifier Dates Procedure Implant ([id number]) Goals Date Patient Goal Desired Activity /State Functional Status Date Assessment Result Facility 02-26-2022 Functional status Ambulates;Bathroom Priv ilege [facility] Work Phone: 02-24-2022 Functional status Ambulates [facility] Work Phone: Mental Status Date Assessment Result Facility 02-26-2022 Cognitive function Level Of Cons ciousness Awake;Alert;Appropriate;Follow s Commands [facility] Work Phone: 02-25-2022 Cognitive function Voice/Name [facility] Work Phone: 02-25-2022 Cognitive function Appropriate;Cooperativ e [facility] Work Phone: Clinical Notes 02-15-2022 to 01-15-2025 Note Date & Type Note Facility 01-15-2025 Procedure note [facility] 12-10-2024 Evaluation note Diagnosis Onset Date Resolution Climacteric acute December 10, 2024 8:49am Lack of libido acute December 10, 025 8:49am Mood swings acute December 10, 2024 8:49am [facility] Work Phone: 1(221) 778-253407-12-2022 NotePap Smear Specimen AdequacyJuly 2021 11:59pmComment.Satisfactory for evaluation. Endocervical and/or squamous metaplasticcells (endocervical component)are present.[facility] INTERFACED A#[id number] Work Phone: Comment on above:Satisfactory for evaluation. Endocervical and/or squamous metaplasticcells (endocervical component)are present.02-15-2022 NotePap Smear Specimen AdequacyJuly 2021 11:59pmComment .Satisfactory for evaluation. Endocervical and/or squamous metaplasticcells (endocervical component)are present.[facility] INTERFACED A#[id number] Work Phone: Comwwfw on above:Satisfactory for evaluation. Endocervical and/or squamous metaplasticcells (endocervical component)are present.02-15-2022 NotePap Smear Specimen AdequacyJuly 2021 11:59pmComment .Satisfactory for evaluation. Endocervical and/or squamous metaplasticcells (endocervical component)are present.[facility]CO[facility] INTERFACED A#[id number] Work Phone: Comtxdx on above:Satisfactory for evaluation. Endocervical and/or squamous metaplasticcells (endocervical component)are present.Evaluation note* Diagnosis Onset Date Resolution Status Menorrhagia with irregular cycle acute [facility] Work Phone: Evaluation note* Diagnosis Onset Date Resolution Status Menorrhagia with irregular cycle acute Cervical mass acute Menorrhagia with irregular cycle acute Unsatisfactory cytology of c ervical Papanicolaou smear noneactive [facility] Work Phone: Evaluation note* Diagnosis Onset Date Resolution Status Menorrhagia with irregular cycle acute Cervical mass acute Menorrhagia with irregular cycle acute Unsatisfactory cytology of c ervical Papanicolaou smear noneactive Intramural uterine fibroid a cute Leukocytosis acute Pelvic pain acute [facility] Work Phone: Evaluation note* Diagnosis Onset Date Resolution Status Menorrhagia with irregular cycle acute Cervical mass acute Menorrhagia with irregular cycle acute Unsatisfactory cytology of c ervical Papanicolaou smear noneactive Climacteric acute Intramural uterine fibroid a cute Leukocytosis acute Menorrhagia with irregular cycle acute Pelvic pain acute Status post hysterectomy acu te [facility] Work Phone: Evaluation noteNo assessment information available [facility] Work Phone: evaluation note* Diagnosis Onset Date Resolution Status Encounter for routine gynecological examination noneactive [facility] Work Phone: evaluation note No assessment recorded. [place] History general Narrative - ReportedNo medical history recorded. Gynecological HistoryNo gynecological history recorded. Obstetrics History GPAL:G 0 P 0 0 0 0 [place] [facility] Name Dates Details How to Access Health Informa tion Online using Patient Portal and [employer] Apps Indication:Nonsmoker Start:20-Nov-2020 Instruction Type:Patient Education Patient Instructions Indication:Nonsmoker Start:20-Nov-2020 Instruction Type:Provider Instructions for Treatment How to access health informa tion online Indication:BMI 27.0-27.9,adult Start:18-Mar-2020 Instruction Type:Patient Education How to access health informa tion online - Detail Indication:BMI 27.0-27.9,adult Start:18-Mar-2020 Instruction Type:Patient Education Patient Instructions Indication:BMI 27.0-27.9,adult Start:18-Mar-2020 Instruction Type:Provider Instructions for Treatment How to access health informa tion online Indication:BMI 27.0-27.9,adult Start:27-Jan-2020 Instruction Type:Patient Education How to access health informa tion online - Detail Indication:BMI 27.0-27.9,adult Start:27-Jan-2020 Instruction Type:Patient Education Patient Instructions Indication:BMI 27.0-27.9,adult Start:27-Jan-2020 Instruction Type:Provider Instructions for Treatment How to access health informa tion online Indication:Nonsmoker Start:26-Nov-2019 Instruction Type:Patient Education How to access health informa tion online - Detail Indication:Nonsmoker Start:26-Nov-2019 Instruction Type:Patient Education Patient Instructions Indication:Nonsmoker Start:26-Nov-2019 Instruction Type:Provider Instructions for Treatment How to access health informa tion online Indication:Pharyngitis, acute Start:31-Aug-2015 Instruction Type:Patient Education How to access health informa tion online - Detail Indication:Pharyngitis, acute Start:31-Aug-2015 Instruction Type:Patient Education Patient Instructions Indication:Pharyngitis, acute Start:31-Aug-2015 Instruction Type:Provider Instructions for Treatment Patient Instructions Indication:Abdominal pain, acute, right lower quadrant Start:23-Dec-2013 Instruction Type:Provider Instructions for Treatment Patient Instructions Indication:Irritable bowel syndrome Start:29-Nov-2013 Instruction Type:Provider Instructions for Treatment Patient Instructions Indication:Pain of upper extremity, unspecified laterality Start:07-Oct-2013 Instruction Type:Provider Instructions for Treatment Patient Instructions Indication:Urinary frequency Start:04-Dec-2012 Instruction Type:Provider Instructions for Treatment [facility]; [facility] Work Phone: Instructions* Name Dates Details How to Access Health Informa tion Online using Patient Portal and [employer] Apps Indication:Nonsmoker Start:20-Nov-2020 Instruction Type:Patient Education Patient Instructions Indication:Nonsmoker Start:20-Nov-2020 Instruction Type:Provider Instructions for Treatment How to access health informa tion online Indication:BMI 27.0-27.9,adult Start:18-Mar-2020 Instruction Type:Patient Education How to access health informa tion online - Detail Indication:BMI 27.0-27.9,adult Start:18-Mar-2020 Instruction Type:Patient Education Patient Instructions Indication:BMI 27.0-27.9,adult Start:18-Mar-2020 Instruction Type:Provider Instructions for Treatment How to access health informa tion online Indication:BMI 27.0-27.9,adult Start:27-Jan-2020 Instruction Type:Patient Education How to access health informa tion online - Detail Indication:BMI 27.0-27.9,adult Start:27-Jan-2020 Instruction Type:Patient Education Patient Instructions Indication:BMI 27.0-27.9,adult Start:27-Jan-2020 Instruction Type:Provider Instructions for Treatment How to access health informa tion online Indication:Nonsmoker Start:26-Nov-2019 Instruction Type:Patient Education How to access health informa tion online - Detail Indication:Nonsmoker Start:26-Nov-2019 Instruction Type:Patient Education Patient Instructions Indication:Nonsmoker Start:26-Nov-2019 Instruction Type:Provider Instructions for Treatment How to access health informa tion online Indication:Pharyngitis, acute Start:31-Aug-2015 Instruction Type:Patient Education How to access health informa tion online - Detail Indication:Pharyngitis, acute Start:31-Aug-2015 Instruction Type:Patient Education Patient Instructions Indication:Pharyngitis, acute Start:31-Aug-2015 Instruction Type:Provider Instructions for Treatment Patient Instructions Indication:Abdominal pain, acute, right lower quadrant Start:23-Dec-2013 Instruction Type:Provider Instructions for Treatment Patient Instructions Indication:Irritable bowel syndrome Start:29-Nov-2013 Instruction Type:Provider Instructions for Treatment Patient Instructions Indication:Pain of upper extremity, unspecified laterality Start:07-Oct-2013 Instruction Type:Provider Instructions for Treatment Patient Instructions Indication:Urinary frequency Start:04-Dec-2012 Instruction Type:Provider Instructions for Treatment [facility]; [facility] Work Phone: Instructions* Name Dates Details How to Access Health Informa tion Online using Patient Portal and [employer] Apps Indication:Nonsmoker Start:20-Nov-2020 Instruction Type:Patient Education Patient Instructions Indication:Nonsmoker Start:20-Nov-2020 Instruction Type:Provider Instructions for Treatment How to access health informa tion online Indication:BMI 27.0-27.9,adult Start:18-Mar-2020 Instruction Type:Patient Education How to access health informa tion online - Detail Indication:BMI 27.0-27.9,adult Start:18-Mar-2020 Instruction Type:Patient Education Patient Instructions Indication:BMI 27.0-27.9,adult Start:18-Mar-2020 Instruction Type:Provider Instructions for Treatment How to access health informa tion online Indication:BMI 27.0-27.9,adult Start:27-Jan-2020 Instruction Type:Patient Education How to access health informa tion online - Detail Indication:BMI 27.0-27.9,adult Start:27-Jan-2020 Instruction Type:Patient Education Patient Instructions Indication:BMI 27.0-27.9,adult Start:27-Jan-2020 Instruction Type:Provider Instructions for Treatment How to access health informa tion online Indication:Nonsmoker Start:26-Nov-2019 Instruction Type:Patient Education How to access health informa tion online - Detail Indication:Nonsmoker Start:26-Nov-2019 Instruction Type:Patient Education Patient Instructions Indication:Nonsmoker Start:26-Nov-2019 Instruction Type:Provider Instructions for Treatment How to access health informa tion online Indication:Pharyngitis, acute Start:31-Aug-2015 Instruction Type:Patient Education How to access health informa tion online - Detail Indication:Pharyngitis, acute Start:31-Aug-2015 Instruction Type:Patient Education Patient Instructions Indication:Pharyngitis, acute Start:31-Aug-2015 Instruction Type:Provider Instructions for Treatment Patient Instructions Indication:Abdominal pain, acute, right lower quadrant Start:23-Dec-2013 Instruction Type:Provider Instructions for Treatment Patient Instructions Indication:Irritable bowel syndrome Start:29-Nov-2013 Instruction Type:Provider Instructions for Treatment Patient Instructions Indication:Pain of upper extremity, unspecified laterality Start:07-Oct-2013 Instruction Type:Provider Instructions for Treatment Patient Instructions Indication:Urinary frequency Start:04-Dec-2012 Instruction Type:Provider Instructions for Treatment [facility]; [facility] Work Phone: Instructions* Name Dates Details How to Access Health Informa tion Online using Patient Portal and [employer] Apps Indication:Nonsmoker Start:20-Nov-2020 Instruction Type:Patient Education Patient Instructions Indication:Nonsmoker Start:20-Nov-2020 Instruction Type:Provider Instructions for Treatment How to access health informa tion online Indication:BMI 27.0-27.9,adult Start:18-Mar-2020 Instruction Type:Patient Education How to access health informa tion online - Detail Indication:BMI 27.0-27.9,adult Start:18-Mar-2020 Instruction Type:Patient Education Patient Instructions Indication:BMI 27.0-27.9,adult Start:18-Mar-2020 Instruction Type:Provider Instructions for Treatment How to access health informa tion online Indication:BMI 27.0-27.9,adult Start:27-Jan-2020 Instruction Type:Patient Education How to access health informa tion online - Detail Indication:BMI 27.0-27.9,adult Start:27-Jan-2020 Instruction Type:Patient Education Patient Instructions Indication:BMI 27.0-27.9,adult Start:27-Jan-2020 Instruction Type:Provider Instructions for Treatment How to access health informa tion online Indication:Nonsmoker Start:26-Nov-2019 Instruction Type:Patient Education How to access health informa tion online - Detail Indication:Nonsmoker Start:26-Nov-2019 Instruction Type:Patient Education Patient Instructions Indication:Nonsmoker Start:26-Nov-2019 Instruction Type:Provider Instructions for Treatment How to access health informa tion online Indication:Pharyngitis, acute Start:31-Aug-2015 Instruction Type:Patient Education How to access health informa tion online - Detail Indication:Pharyngitis, acute Start:31-Aug-2015 Instruction Type:Patient Education Patient Instructions Indication:Pharyngitis, acute Start:31-Aug-2015 Instruction Type:Provider Instructions for Treatment Patient Instructions Indication:Abdominal pain, acute, right lower quadrant Start:23-Dec-2013 Instruction Type:Provider Instructions for Treatment Patient Instructions Indication:Irritable bowel syndrome Start:29-Nov-2013 Instruction Type:Provider Instructions for Treatment Patient Instructions Indication:Pain of upper extremity, unspecified laterality Start:07-Oct-2013 Instruction Type:Provider Instructions for Treatment Patient Instructions Indication:Urinary frequency Start:04-Dec-2012 Instruction Type:Provider Instructions for Treatment [facility]; [facility] Work Phone: Instructions* Name Dates Details Patient Instructions Indication:BMI 25.0-25.9,adult Start:30-Mar-2022 Instruction Type:Provider Instructions for Treatment How to Access Health Informa tion Online using Patient Portal and [employer] Apps Indication:BMI 25.0-25.9,adult Start:30-Mar-2022 Instruction Type:Patient Education How to Access Health Informa tion Online using Patient Portal and [employer] Apps Indication:Nonsmoker Start:20-Nov-2020 Instruction Type:Patient Education Patient Instructions Indication:Nonsmoker Start:20-Nov-2020 Instruction Type:Provider Instructions for Treatment How to access health informa tion online Indication:BMI 27.0-27.9,adult Start:18-Mar-2020 Instruction Type:Patient Education How to access health informa tion online - Detail Indication:BMI 27.0-27.9,adult Start:18-Mar-2020 Instruction Type:Patient Education Patient Instructions Indication:BMI 27.0-27.9,adult Start:18-Mar-2020 Instruction Type:Provider Instructions for Treatment How to access health informa tion online Indication:BMI 27.0-27.9,adult Start:27-Jan-2020 Instruction Type:Patient Education How to access health informa tion online - Detail Indication:BMI 27.0-27.9,adult Start:27-Jan-2020 Instruction Type:Patient Education Patient Instructions Indication:BMI 27.0-27.9,adult Start:27-Jan-2020 Instruction Type:Provider Instructions for Treatment How to access health informa tion online Indication:Nonsmoker Start:26-Nov-2019 Instruction Type:Patient Education How to access health informa tion online - Detail Indication:Nonsmoker Start:26-Nov-2019 Instruction Type:Patient Education Patient Instructions Indication:Nonsmoker Start:26-Nov-2019 Instruction Type:Provider Instructions for Treatment How to access health informa tion online Indication:Pharyngitis, acute Start:31-Aug-2015 Instruction Type:Patient Education How to access health informa tion online - Detail Indication:Pharyngitis, acute Start:31-Aug-2015 Instruction Type:Patient Education Patient Instructions Indication:Pharyngitis, acute Start:31-Aug-2015 Instruction Type:Provider Instructions for Treatment Patient Instructions Indication:Abdominal pain, acute, right lower quadrant Start:23-Dec-2013 Instruction Type:Provider Instructions for Treatment Patient Instructions Indication:Irritable bowel syndrome Start:29-Nov-2013 Instruction Type:Provider Instructions for Treatment Patient Instructions Indication:Pain of upper extremity, unspecified laterality Start:07-Oct-2013 Instruction Type:Provider Instructions for Treatment Patient Instructions Indication:Urinary frequency Start:04-Dec-2012 Instruction Type:Provider Instructions for Treatment [facility]; [facility] Work Phone: Instructions* Name Dates Details Patient Instructions Indication:Nonsmoker Start:23-Jan-2023 Instruction Type:Provider Instructions for Treatment How to Access Health Informa tion Online using Patient Portal and [employer] Apps Indication:Nonsmoker Start:23-Jan-2023 Instruction Type:Patient Education Patient Instructions Indication:BMI 25.0-25.9,adult Start:30-Mar-2022 Instruction Type:Provider Instructions for Treatment How to Access Health Informa tion Online using Patient Portal and [employer] Apps Indication:BMI 25.0-25.9,adult Start:30-Mar-2022 Instruction Type:Patient Education How to Access Health Informa tion Online using Patient Portal and [employer] Apps Indication:Nonsmoker Start:20-Nov-2020 Instruction Type:Patient Education Patient Instructions Indication:Nonsmoker Start:20-Nov-2020 Instruction Type:Provider Instructions for Treatment How to access health informa tion online Indication:BMI 27.0-27.9,adult Start:18-Mar-2020 Instruction Type:Patient Education How to access health informa tion online - Detail Indication:BMI 27.0-27.9,adult Start:18-Mar-2020 Instruction Type:Patient Education Patient Instructions Indication:BMI 27.0-27.9,adult Start:18-Mar-2020 Instruction Type:Provider Instructions for Treatment How to access health informa tion online Indication:BMI 27.0-27.9,adult Start:27-Jan-2020 Instruction Type:Patient Education How to access health informa tion online - Detail Indication:BMI 27.0-27.9,adult Start:27-Jan-2020 Instruction Type:Patient Education Patient Instructions Indication:BMI 27.0-27.9,adult Start:27-Jan-2020 Instruction Type:Provider Instructions for Treatment How to access health informa tion online Indication:Nonsmoker Start:26-Nov-2019 Instruction Type:Patient Education How to access health informa tion online - Detail Indication:Nonsmoker Start:26-Nov-2019 Instruction Type:Patient Education Patient Instructions Indication:Nonsmoker Start:26-Nov-2019 Instruction Type:Provider Instructions for Treatment How to access health informa tion online Indication:Pharyngitis, acute Start:31-Aug-2015 Instruction Type:Patient Education How to access [employer] online - Detail Indication:Pharyngitis, acute Start:31-Aug-2015 Instruction Type:Patient Education Patient Instructions Indication:Pharyngitis, acute Start:31-Aug-2015 Instruction Type:Provider Instructions for Treatment Patient Instructions Indication:Abdominal pain, acute, right lower quadrant Start:23-Dec-2013 Instruction Type:Provider Instructions for Treatment Patient Instructions Indication:Irritable bowel syndrome Start:29-Nov-2013 Instruction Type:Provider Instructions for Treatment Patient Instructions Indication:Pain of upper extremity, unspecified laterality Start:07-Oct-2013 Instruction Type:Provider Instructions for Treatment Patient Instructions Indication:Urinary frequency Start:04-Dec-2012 Instruction Type:Provider Instructions for Treatment [facility] Work Phone: reason for referral (narrative)No reason for [facility]: Summary Purpose Family History No Family History Records FoundUnknown Family Member Name Dates Details First Degree Relatives Comments:Aunt on dialysis fo r kidney stones Status:Active Mother Comments:kidney stones Status:Active Unknown Family Member Name Dates Details First Degree Relatives Comments:Aunt on dialysis fo r kidney stones Status:Active Mother Comments:kidney stones Status:Active Unknown Family Member Name Dates Details First Degree Relatives Comments:Aunt on dialysis fo r kidney stones Status:Active Mother Comments:kidney stones Status:Active Unknown Family Member Name Dates Details First Degree Relatives Comments:Aunt on dialysis fo r kidney stones Status:Active Mother Comments:kidney stones Status:Active Unknown Family Member Name Dates Details First Degree Relatives Comments:Aunt on dialysis fo r kidney stones Status:Active Mother Comments:kidney stones Status:Active Unknown Family Member Name Dates Details First Degree Relatives Comments:Aunt on dialysis fo r kidney stones Status:Active Mother Comments:kidney stones Status:Active Unknown Family Member Name Dates Details First Degree Relatives Comments:Aunt on dialysis fo r kidney stones Status:Active Mother Comments:kidney stones Status:Active Unknown Family Member Name Dates Details First Degree Relatives Comments:Aunt on dialysis fo r kidney stones Status:Active Mother Comments:kidney stones Status:Active Unknown Family Member Name Dates Details First Degree Relatives Comments:Aunt on dialysis fo r kidney stones Status:Active Mother Comments:kidney stones Status:Active Advance Directives No Advanced Directives Records Found Advance Directive Response Recorded Date/ Time Living Will No February 24, 2022 7:24am Power of Organization Development Consultant No February 24 7:24am Advance Directive Response Recorded Date/ Time Living Will No February 24, 2022 10:38am Power of Organization Development Consultant No February 24 10:38am Advance Directive Response Recorded Date/ Time Living Will No February 24, 2022 9:38am Power of Organization Development Consultant No February 24 9:38am Instructions Name Dates Details How to access health informa tion online Indication:BMI 27.0-27.9,adult Start:18-Mar-2020 Instruction Type:Patient Education How to access health informa tion online - Detail Indication:BMI 27.0-27.9,adult Start:18-Mar-2020 Instruction Type:Patient Education Patient Instructions Indication:BMI 27.0-27.9,adult Start:18-Mar-2020 Instruction Type:Provider Instructions for Treatment How to access health informa tion online Indication:BMI 27.0-27.9,adult Start:27-Jan-2020 Instruction Type:Patient Education How to access health informa tion online - Detail Indication:BMI 27.0-27.9,adult Start:27-Jan-2020 Instruction Type:Patient Education Patient Instructions Indication:BMI 27.0-27.9,adult Start:27-Jan-2020 Instruction Type:Provider Instructions for Treatment How to access health informa tion online Indication:Nonsmoker Start:26-Nov-2019 Instruction Type:Patient Education How to access health informa tion online - Detail Indication:Nonsmoker Start:26-Nov-2019 Instruction Type:Patient Education Patient Instructions Indication:Nonsmoker Start:26-Nov-2019 Instruction Type:Provider Instructions for Treatment How to access health informa tion online Indication:Pharyngitis, acute Start:31-Aug-2015 Instruction Type:Patient Education How to access health informa tion online - Detail Indication:Pharyngitis, acute Start:31-Aug-2015 Instruction Type:Patient Education Patient Instructions Indication:Pharyngitis, acute Start:31-Aug-2015 Instruction Type:Provider Instructions for Treatment Patient Instructions Indication:Abdominal pain, acute, right lower quadrant Start:23-Dec-2013 Instruction Type:Provider Instructions for Treatment Patient Instructions Indication:Irritable bowel syndrome Start:29-Nov-2013 Instruction Type:Provider Instructions for Treatment Patient Instructions Indication:Pain of upper extremity, unspecified laterality Start:07-Oct-2013 Instruction Type:Provider Instructions for Treatment Patient Instructions Indication:Urinary frequency Start:04-Dec-2012 Instruction Type:Provider Instructions for Treatment Name Dates Details How to access health informa tion online Indication:BMI 27.0-27.9,adult Start:18-Mar-2020 Instruction Type:Patient Education How to access health informa tion online - Detail Indication:BMI 27.0-27.9,adult Start:18-Mar-2020 Instruction Type:Patient Education Patient Instructions Indication:BMI 27.0-27.9,adult Start:18-Mar-2020 Instruction Type:Provider Instructions for Treatment How to access health informa tion online Indication:BMI 27.0-27.9,adult Start:27-Jan-2020 Instruction Type:Patient Education How to access health informa tion online - Detail Indication:BMI 27.0-27.9,adult Start:27-Jan-2020 Instruction Type:Patient Education Patient Instructions Indication:BMI 27.0-27.9,adult Start:27-Jan-2020 Instruction Type:Provider Instructions for Treatment How to access health informa tion online Indication:Nonsmoker Start:26-Nov-2019 Instruction Type:Patient Education How to access health informa tion online - Detail Indication:Nonsmoker Start:26-Nov-2019 Instruction Type:Patient Education Patient Instructions Indication:Nonsmoker Start:26-Nov-2019 Instruction Type:Provider Instructions for Treatment How to access health informa tion online Indication:Pharyngitis, acute Start:31-Aug-2015 Instruction Type:Patient Education How to access health informa tion online - Detail Indication:Pharyngitis, acute Start:31-Aug-2015 Instruction Type:Patient Education Patient Instructions Indication:Pharyngitis, acute Start:31-Aug-2015 Instruction Type:Provider Instructions for Treatment Patient Instructions Indication:Abdominal pain, acute, right lower quadrant Start:23-Dec-2013 Instruction Type:Provider Instructions for Treatment Patient Instructions Indication:Irritable bowel syndrome Start:29-Nov-2013 Instruction Type:Provider Instructions for Treatment Patient Instructions Indication:Pain of upper extremity, unspecified laterality Start:07-Oct-2013 Instruction Type:Provider Instructions for Treatment Patient Instructions Indication:Urinary frequency Start:04-Dec-2012 Instruction Type:Provider Instructions for Treatment Name Dates Details How to Access Health Informa tion Online using Patient Portal and 3rd [employer] Apps Indication:Nonsmoker Start:20-Nov-2020 Instruction Type:Patient Education Patient Instructions Indication:Nonsmoker Start:20-Nov-2020 Instruction Type:Provider Instructions for Treatment How to access health informa tion online Indication:BMI 27.0-27.9,adult Start:18-Mar-2020 Instruction Type:Patient Education How to access health informa tion online - Detail Indication:BMI 27.0-27.9,adult Start:18-Mar-2020 Instruction Type:Patient Education Patient Instructions Indication:BMI 27.0-27.9,adult Start:18-Mar-2020 Instruction Type:Provider Instructions for Treatment How to access health informa tion online Indication:BMI 27.0-27.9,adult Start:27-Jan-2020 Instruction Type:Patient Education How to access health informa tion online - Detail Indication:BMI 27.0-27.9,adult Start:27-Jan-2020 Instruction Type:Patient Education Patient Instructions Indication:BMI 27.0-27.9,adult Start:27-Jan-2020 Instruction Type:Provider Instructions for Treatment How to access health informa tion online Indication:Nonsmoker Start:26-Nov-2019 Instruction Type:Patient Education How to access health informa tion online - Detail Indication:Nonsmoker Start:26-Nov-2019 Instruction Type:Patient Education Patient Instructions Indication:Nonsmoker Start:26-Nov-2019 Instruction Type:Provider Instructions for Treatment How to access health informa tion online Indication:Pharyngitis, acute Start:31-Aug-2015 Instruction Type:Patient Education How to access health informa tion online - Detail Indication:Pharyngitis, acute Start:31-Aug-2015 Instruction Type:Patient Education Patient Instructions Indication:Pharyngitis, acute Start:31-Aug-2015 Instruction Type:Provider Instructions for Treatment Patient Instructions Indication:Abdominal pain, acute, right lower quadrant Start:23-Dec-2013 Instruction Type:Provider Instructions for Treatment Patient Instructions Indication:Irritable bowel syndrome Start:29-Nov-2013 Instruction Type:Provider Instructions for Treatment Patient Instructions Indication:Pain of upper extremity, unspecified laterality Start:07-Oct-2013 Instruction Type:Provider Instructions for Treatment Patient Instructions Indication:Urinary frequency Start:04-Dec-2012 Instruction Type:Provider Instructions for Treatment Name Dates Details How to Access Health Informa tion Online using Patient Portal and [employer] Apps Indication:Nonsmoker Start:20-Nov-2020 Instruction Type:Patient Education Patient Instructions Indication:Nonsmoker Start:20-Nov-2020 Instruction Type:Provider Instructions for Treatment How to access health informa tion online Indication:BMI 27.0-27.9,adult Start:18-Mar-2020 Instruction Type:Patient Education How to access health informa tion online - Detail Indication:BMI 27.0-27.9,adult Start:18-Mar-2020 Instruction Type:Patient Education Patient Instructions Indication:BMI 27.0-27.9,adult Start:18-Mar-2020 Instruction Type:Provider Instructions for Treatment How to access health informa tion online Indication:BMI 27.0-27.9,adult Start:27-Jan-2020 Instruction Type:Patient Education How to access health informa tion online - Detail Indication:BMI 27.0-27.9,adult Start:27-Jan-2020 Instruction Type:Patient Education Patient Instructions Indication:BMI 27.0-27.9,adult Start:27-Jan-2020 Instruction Type:Provider Instructions for Treatment How to access health informa tion online Indication:Nonsmoker Start:26-Nov-2019 Instruction Type:Patient Education How to access health informa tion online - Detail Indication:Nonsmoker Start:26-Nov-2019 Instruction Type:Patient Education Patient Instructions Indication:Nonsmoker Start:26-Nov-2019 Instruction Type:Provider Instructions for Treatment How to access health informa tion online Indication:Pharyngitis, acute Start:31-Aug-2015 Instruction Type:Patient Education How to access health informa tion online - Detail Indication:Pharyngitis, acute Start:31-Aug-2015 Instruction Type:Patient Education Patient Instructions Indication:Pharyngitis, acute Start:31-Aug-2015 Instruction Type:Provider Instructions for Treatment Patient Instructions Indication:Abdominal pain, acute, right lower quadrant Start:23-Dec-2013 Instruction Type:Provider Instructions for Treatment Patient Instructions Indication:Irritable bowel syndrome Start:29-Nov-2013 Instruction Type:Provider Instructions for Treatment Patient Instructions Indication:Pain of upper extremity, unspecified laterality Start:07-Oct-2013 Instruction Type:Provider Instructions for Treatment Patient Instructions Indication:Urinary frequency Start:04-Dec-2012 Instruction Type:Provider Instructions for Treatment Chief Complaint and Reason for Visit Chief Complaint discuss heavy period s Reason for Visit Menorrhagia with irr egular cycle Chief Complaint discuss heavy period s MENORRHAGIA Reason for Visit Menorrhagia with irr egular cycle Chief Complaint discuss heavy period s MENORRHAGIA repeat pap Reason for Visit Menorrhagia with irr egular cycle Cervical mass Menorrhagia with irregular cycle Unsatisfactory cytology of cervical Papanicolaou smear Chief Complaint discuss heavy period s MENORRHAGIA repeat pap CERVIX MASS PELVIC PAIN, DEGENERATIVE UTERINE FIBROID Reason for Visit Menorrhagia with irr egular cycle Cervical mass Menorrhagia with irregular cycle Unsatisfactory cytology of cervical Papanicolaou smear Intramural uterine fibroid Leukocytosis Pelvic pain Chief Complaint discuss heavy period s MENORRHAGIA repeat pap CERVIX MASS PELVIC PAIN, DEGENERATIVE UTERINE FIBROID PELVIC PAIN, DEGENERATIVE UTERINE FIBROID PELVIC PAIN, DEGENERATIVE UTERINE FIBROID PELVIC PAIN, DEGENERATIVE UTERINE FIBROID Reason for Visit Menorrhagia with irr egular cycle Cervical mass Menorrhagia with irregular cycle Unsatisfactory cytology of cervical Papanicolaou smear Climacteric Intramural uterine fibroid Leukocytosis Menorrhagia with irregular cycle Pelvic pain Status post hysterectomy Chief Complaint Epigastric pain Chief Complaint 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; ADHESIVE CAPSULITIS RT SHOULDER Reason for Visit Encounter for routin e gynecological examination Chief Complaint Admit Date MENOPAUSE CONCERNS December 10, 2024 8:49am disorders of peripheral nervous sys B/L EXT January 15, 2025 8:35am disorders of peripheral nervous sys B/L EXT January 15, 2025 12:41pm Reason for Visit Admit Date Climacteric December 10, 2024 8:49am Lack of libido December 10, 2024 8:49am Mood swings December 10, 2024 8:49am Additional Source Comments INFORMATION SOURCE (unrecogn ized section and content) DATE CREATED AUTHOR 04/17/2018 Carson Benoit [facility] DATE CREATED AUTHOR AUTHOR'S ORGANIZ ATION 01/13/2023 [facility] DATE CREATED AUTHOR AUTHOR'S ORGANIZ ATION 07/09/2023 [facility] DATE CREATED AUTHOR AUTHOR'S ORGANIZ ATION [facility] Goals (unrecognized section and content) Goals may be documented in a n alternate sectionGoals may be documented in an alternate sectionGoals may be documented in an alternate sectionGoals may be documented in an alternate sectionGoals may be documented in an alternate sectionGoals may be documented in an alternate sectionNone RecordedGoals may be documented in an alternate section (unrecognized sect ion and content) No Status Records Found Care Teams (unrecognized sec tion and content) Team Status: Active Member Role Status Dates Dr. Neeta Smart DO Primary Care Provider Active Team Status: Inactive Member Role Status Dates Dr. Neeta Smart DO Primary Care Pr ovider, Attending Provider, Referring Provider Active Team Status: Inactive Member Role Status Dates Dr. Neeta Smart DO Primary Care Provider, Referr ing Provider Active Dr. Anila Rodriguez DO Attending Provider Activ e Team Status: Inactive Member Role Status Dates Dr. Neeta Smart DO Primary Care Provider Active Dr. Anila Rodriguez DO Attending Provider, Refe rring Provider Active Team Status: Inactive Member Role Status Dates Dr. Neeta Smart DO Primary Care Provider Active Start: December 10, 2024 End: December 10, 2024 Dr. Neeta Smart DO Referring Provider Active Start: December 10, 2024 End: December 10, 2024 Dr. Anila Rodriguez DO Attending Provider Activ e Start: December 10, 2024 End: December 10, 2024 Team Status: Inactive Member Role Status Dates Dr. Neeta Smart DO Primary Care Provider Active Start: January 15, 2025 End: January 15, 2025 Dr. Bre Moffett DPM Attending Provider Active Start: January 15, 2025 End: January 15, 2025 Dr. Bre Moffett DPM Referring Provider Active Start: January 15, 2025 End: January 15, 2025 Team Status: Active Member Role Status Dates Dr. Neeta Smart DO Primary Care Provider Active Start: January 15, 2025 Dr. Bre Moffett DPM Referring Provider Active Start: January 15, 2025 Dr. Bre Moffett DPM Other Provider Active Star t: January 15, 2025 Dr. Zach Mcleod MD Attending Provider Active S tart: January 15, 2025 FOR RECORDS PERTAINING TO PATIENTS WHO ARE [...] BE BASED ON THE PRIMARY CLINICAL RECORDS. [employer] [facility]. provides no warranty or guarantee of the accuracy or completeness of information in this document.
[2025-03-11 07:47] LABS: Hematocrit 44.6 % (37-47); Hemoglobin 14.7 g/dL (12.0-15.0); Immature Granulocytes Count 0.010 X10^3/uL (0.0-0.0); Mean Corp Hgb Conc 33.0 g/dL (32-36); Mean Corpuscular Volume 102.1 fL (81-99); Mean Platelet Vol. 10.7 fl (6.2-12.0); NRBC Flagged by Analyzer 0 % (0-5); Platelet Count 213 K/mm3 (150-450); RBC Distribution Width CV 12.2 % (11.6-14.6); RBC Distribution Width SD 46.2 fl (35.1-43.9); Red Blood Count 4.37 M/mm3 (4.2-5.4); White Blood Count 5.1 K/mm3 (4.4-11.0)
[2025-03-11 08:35] LABS: AST(SGOT) 25 U/L (<=31); Alanine Aminotransfer ALT/SGPT 23 U/L (<=34); Albumin, Serum 4.4 g/dL (3.5-5.0); Alkaline Phosphatase 69 U/L (35-104); Anion Gap 11 (5-15); BUN 14 mg/dL (4-19); BUN/Creat Ratio 16.4 RATIO (10-20); Calcium,Total 9.4 mg/dL (7.6-11.0); Carbon Dioxide 23.8 mmol/L (21.0-32.0); Chloride 103 mmol/L (98-108); Ferritin 215 ng/mL (22-378); Globulin 2.6 g/dL (2.2-4.2); Glucose 88 mg/dL (70-99); Potassium 4.2 mmol/L (3.3-5.1); T4 Total, Thyroxin 6.8 ug/dL (4.8-13.9); Vitamin B12 950 pg/mL (180-914); Vitamin D,25 Hydroxy 53.9 ng/mL (30-100)
[2025-03-11 09:59] LABS: Iron 94 ug/dL (50-170); Iron Binding Capacity,Total 253 ug/dL (250-450); Iron Binding Capacity,Unsat 159 ug/dL (228-428)
[2025-03-14 15:08] LABS: PROLACTIN 9.7 ng/mL (3.6-25.2); Testosterone, % Free 1.69 % (0.50-2.80); Testosterone, Free <.05 ng/dL (0.10-0.85)
== END | disposition home or self-care (01) ==
PROVIDERS: PCP Internal Medicine; Referring Provider Nurse Practitioner Family; Visit Provider Nurse Practitioner Family
DX: R68.82 Decreased libido (principal); R53.83 Other fatigue
CPT/HCPCS: 36415; 80053; 82306; 82607; 82670; 82728; 83540; 83550; 84146; 84402; 84403; 84436; 84439; 84443; 85025